=== PATIENT | male | born 1950 | race Caucasian/White ===

== ENCOUNTER 2025-07-10 09:13 | Inpatient (IN) | payer MEDICARE, OTHER ==
[2025-07-10] VITALS (12 sets, daily range): BP systolic 89–128; BP diastolic 57–82; PULSE 78–108; RESP 14–26; TEMP 99.1; O2SAT 89–100
[~2025-07-10] VITALS: Ht 180.3 cm; Wt 70.9 kg
[2025-07-10] MEDS: methylPREDNISolone SOD SUCC 125 MG/2 ML VL IV ONE (09:20)
[2025-07-10] MEDS: MAGNESIUM SULFATE 1GM/100ML 100 ML IV SCH (09:20)
[2025-07-10] MEDS: ALBUTEROL SULF 2.5 MG/0.5ML(0.5%) NEB SOLN NEB ONE (09:25)
[2025-07-10] MEDS: MAGNESIUM SULFATE 1GM/100ML 200 ML IV ONE (09:26)
[2025-07-10] MEDS: methylPREDNISolone SOD SUCC 125 MG/2 ML VL ONE (09:26)
[2025-07-10] MEDS: FUROSEMIDE 20 MG/2 ML VIAL IV ONE (09:36)
[2025-07-10] MEDS: ALBUTEROL SULF 2.5 MG/0.5ML(0.5%) NEB SOLN ONE (09:41)
--- NOTE | 2025-07-10 09:42 | ED.PDOC ---
SOB-HPI HPI Comments 75 y/o M, BIBA, with PMHx of dementia, Parkinson's, and COPD presents to the ED for CC of shortness of breath. EMS reports, patient is coming from home where he c/o shortness of breath x1day. EMS relays, upon arrival to scene patient was found to be hypoxic stating at 80% on 2-3L, with associated labored breathing and use of accessory muscles. In route to the ED, patient was given 7.5mg of Albuterol and 0.5 mg of Atrovent; patient endorses relief however, he experienced no change in saturation. Patient was transferred to ER bed 07, care ongoing at this time. Chief Complaint: Shortness of Breath Time Seen by MD: 09:15 Reviewed notes: Nurses Notes, Pharmacy Helper Notes, Medications, Allergies Information Source: Emergency Med Personnel Mode of Arrival: EMS Severity: Moderate Timing: Days Duration: Since onset Context: At Rest PE Risk Factors: None History of: COPD Modifying Factors: Nothing Associated Signs and Symptoms: None Past Medical History PAST MEDICAL HISTORY: COPD, Dementia Surgical History: Denies all surgeries Family History Family History: Unknown Social History Smoker: Non-Smoker Alcohol: Denies ETOH Use Drugs: Denies Drug Use Lives In: Home Constitutional: denies: chills, diaphoresis, fatigue, fever, malaise, sweats, weakness, others EENTM: denies: blurred vision, double vision, ear bleeding, ear discharge, ear drainage, ear pain, ear ringing, eye pain, eye redness, hearing loss, mouth pain, mouth swelling, nasal discharge, nose bleeding, nose congestion, nose pain, photophobia, tearing, throat pain, throat swelling, voice changes, others Respiratory: reports: shortness of breath; denies: cough, hemoptysis, orthopnea, SOB at rest, SOB with excertion, stridor, wheezing, others Cardiovascular: denies: chest pain, dizzy spells, diaphoresis, Dyspnea on exertion, edema, irregular heart beat, left arm pain, lightheadedness, palpitations, PND, syncope, others Gastrointestinal: denies: abdomen distended, abdominal pain, blood streaked bowels, constipated, diarrhea, dysphagia, difficulty swallowing, hematemesis, melena, nausea, poor appetite, poor fluid intake, rectal bleeding, rectal pain, vomiting, others Genitourinary: denies: burning, dysuria, flank pain, frequency, hematuria, incontinence, penile discharge, penile sore, pain, testicle pain, testicle swelling, urgency, others Neurological: denies: dizziness, fainting, headache, left sided numbness, left sided weakness, numbness, paresthesia, pre-existing deficit, right sided numbness, right sided weakness, seizure, speech problems, tingling, tremors, weakness, others Musculoskeletal: denies: back pain, gout, joint pain, joint swelling, muscle pain, muscle stiffness, neck pain, others Integumetry: denies: bruises, change in color, change in hair/nails, dryness, laceration, lesions, lumps, rash, wounds, others Allergic/Immunocompromised: denies: Difficulty Healing, Frequent Infections, Hives, Itching, others Hematologic/Lymphatic: denies: anemia, blood clots, easy bleeding, easy bruising, swollen glands, others Endocrine: denies: excessive hunger, excessive sweating, excessive thirst, excessive urination, flushing, intolerance to cold, intolerance to heat, unexpla ined weight gain, unexplained weight loss, others Psychiatric: denies: anxiety, bipolar disorder, depression, hopeless, panic disorder, schizophrenia, sleepless, suicidal, others All Other Systems: Reviewed and Negative Physical Exam General Appearance: Severe Distress HEENT: Normal ENT Inspection Neck: Normal Inspection Respiratory: Accessory Muscle Use, Respiratory Distress Cardiovascular: Tachycardia Breast Exam: Deferred Gastrointestinal: Soft Genitalia: Deferred Pelvic: Deferred Rectal: Deferred Extremities: No calf tenderness, Normal capillary refill, Normal inspection, Normal range of motion, Non-tender, No pedal edema Musculoskeletal : Apperance: Normal Neurologic: Alert, No Motor Deficits, No Sensory Deficits Cerebellar Function: NOT DONE Reflexes: NOT DONE Skin: Pallor Peripheral Pulses: 3+ Radial (R), 3+ Radial (L) Lymphatic: No Adenopathy EKG EKG : Cardiac Rhythm: ST Was a procedure done? Was a procedure done?: Yes Sedation Sedation?: No Intubation Indication: Respiratory Insufficiency Prep: Preoxygenation Pretreated with: Analgesia Medicated with: Vecuronium Intubation Approach: Orotracheal Intubation size: cm (8) Differential Dx Differential Diagnosis: Anxiety, Asthma, Bronchitis, CHF, COPD, Pneumonia, Respiratory Distress, URI X-Ray, Labs, Meds, VS Vital Signs Date Time Temp Pulse Resp B/P (MAP) Pulse Ox O2 Delivery O2 Flow Rate FiO2 07/10/25 12:18 108 18 92/57 89 50 07/10/25 12:00 92/57 07/10/25 12:00 102 18 92/57 (69) 90 07/10/25 11:45 107 18 108/62 (77) 89 07/10/25 11:30 110 18 119/64 (82) 99 07/10/25 11:15 111 18 119/67 (84) 99 07/10/25 11:07 117 18 129/75 (93) 99 50 07/10/25 11:00 137 14 102/66 (78) 99 07/10/25 10:57 113/72 07/10/25 10:56 113/72 07/10/25 10:53 113/72 07/10/25 10:45 123 28 113/72 (86) 99 07/10/25 09:45 98.6 93 27 160/95 (116) 99 98.6 07/10/25 09:45 Bi-Pap+ 100 100 07/10/25 09:36 160/95 07/10/25 09:27 110 07/10/25 09:20 120 160/95 Facial BiPAP Mask 100 07/10/25 09:13 98.6 86 30 160/95 99 98.6 Lab Test 07/10/25 12:07 07/10/25 10:39 07/10/25 10:04 07/10/25 10:00 Range/Units Blood Gas Specimen Type Arterial Arterial Blood Gas Sample Site Right radial Right brachial Blood Gas Patient Temperature 37.0 37.0 Arterial Blood Date Drawn [id number] Arterial Blood pH 7.242 *L 7.229 *L 7.350-7.450 Arterial Blood Partial Pressure CO2 61.6 *H 62.8 *H 35.0-48.0 mmHg Arterial Blood Partial Pressure O2 68.1 L 264.5 H 83.0-108.0 mmHg Arterial Blood HCO3 25.9 25.7 21.0-28.0 mmol/L Arterial Blood Oxygen Saturation 89.7 L 99.6 H 94.0-98.0 % Arterial Blood Base Excess -2.8 L -3.4 L -2.0-3.0 mmol/L Arterial Blood Oxyhemoglobin 88.1 L 98.0 94.0-98.0 % Arterial Blood Carboxyhemoglobin 0.9 0.7 0.5-1.5 % Arterial Blood Methemoglobin 0.9 0.9 0.0-1.5 % Kurt Test Modified Yes Blood Gas Total Hemoglobin 15.20 15.80 13.5-17.5 g/dL Blood Gas Set Respiration Rate 18.0 12.0 Blood Gas Modality Vent - ac Mask - bipap FiO2 % 50.0 100.0 Blood Gas Tidal Volume 500.0 Blood Gas PEEP or CPAP 5.0 Blood Gas Critical Value Read Back Yes Yes Blood Gas Notified Whom Md. aurelia moses Blood Gas Notified Time [id number] Blood Gas Notified By Intelligence Director artur hartmann Intelligence Director artur hartmann Blood Gas EPAP 5 Blood Gas IPAP 12 Urine Color Light-yellow Yellow Urine Clarity Clear Clear Urine pH 5.0 5.0-9.0 Urine Specific [place] 1.011 1.001-1.035 Urine Protein Negative Negative Urine Ketones Negative Negative Urine Blood Negative Negative /uL Urine Nitrite Negative Negative Urine Bilirubin Negative Negative Urine Urobilinogen Normal Negative mg/dL Urine Leukocyte Esterase Negative Negative /uL Urine RBC 1 0 - 3 /hpf Urine Microscopic WBC 2 0-3 /HPF Urine Squamous Epithelial Cells Few <5 /hpf Urine Bacteria None seen None Seen /hpf Urine Mucus Few None Seen Urine Glucose Normal Normal mg/dL White Blood Count 20.8 H 4.4-10.8 10^3/uL Red Blood Count 5.83 4.5-5.90 10^6/uL Hemoglobin 16.1 13.5-17.5 g/dL Hematocrit 50.2 41.0-53.0 % Mean Corpuscular Volume 86.1 80.0-100.0 fL Mean Corpuscular Hemoglobin 27.7 L 28.0-32.0 pg Mean Corpuscular Hemoglobin Concent 32.1 32.0-36.0 g/dL Red Cell Distribution Width 14.9 H 11.8-14.3 % Platelet Count 284 140-450 10^3/uL Mean Platelet Volume 8.7 6.9-10.8 fL Neutrophils (%) (Auto) 81.7 H 37.0-80.0 % Lymphocytes (%) (Auto) 12.3 10.0-50.0 % Monocytes (%) (Auto) 5.1 0.0-12.0 % Eosinophils (%) (Auto) 0.4 0.0-7.0 % Basophils (%) (Auto) 0.5 0.0-2.0 % Neutrophils # (Auto) 17.0 H 1.6-8.6 10 ^3/uL Lymphocytes # (Auto) 2.6 0.4-5.4 10 ^3/uL Monocytes # (Auto) 1.1 0-1.3 10 ^3/uL Eosinophils # (Auto) 0.1 0-0.8 10 ^3/uL Basophils # (Auto) 0.1 0-0.2 10 ^3/uL Nucleated Red Blood Cells 0.1 % Prothrombin Time 10.7 9.3-11.8 sec Prothrombin Time INR 1.01 0.9-1.15 Activated Partial Thromboplast Time 21.7 L 24.5-34.5 SEC Sodium Level 146 H 136-145 mmol/L Potassium Level 3.9 3.5-5.1 mmol/L Chloride Level 105 98-107 mmol/L Carbon Dioxide Level 31 20-31 mmol/L Anion Gap 10 5-15 Blood Urea Nitrogen 16 9-23 mg/dL Creatinine 0.90 0.700-1.30 mg/dL Glomerular Filtration Rate Calc 89 >90 mL/min BUN/Creatinine Ratio 17.8 10.0-20.0 Serum Glucose 128 H 74-106 mg/dL Lactic Acid Level 1.9 0.4-2.0 mmol/L Calcium Level 9.5 8.7-10.4 mg/dL Total Bilirubin 0.9 0.2-1.0 mg/dL Aspartate Amino Transferase (AST) 22 13-40 U/L Alanine Aminotransferase (ALT) 23 7-40 U/L Alkaline Phosphatase 124 H 46-116 U/L Total Protein 7.0 5.7-8.2 g/dL Albumin 4.4 3.2-4.8 g/dL Current Medications Medications (Trade) Dose Ordered Sig/Cameron Route Start Time Stop Time Status Last Admin Magnesium Sulfate/ Dextrose 100 ml @ 100 mls/hr Q1H IV 07/10/25 09:15 07/10/25 11:14 DC 07/10/25 11:30 Methylprednisolone Sodium Succinate (Solu Medrol) 125 mg ONCE ONCE IV 07/10/25 09:15 07/10/25 09:20 DC 07/10/25 09:20 Furosemide (Lasix Injection) 20 mg ONCE ONCE IV 07/10/25 09:30 07/10/25 09:31 DC 07/10/25 09:36 Sodium Chloride 1,000 ml @ 1,000 mls/hr Q1H ONCE IV 07/10/25 09:45 07/10/25 10:44 DC 07/10/25 09:45 Sodium Chloride 1,000 ml @ 150 mls/hr Q6H40M ONCE IV 07/10/25 09:45 07/10/25 16:24 07/10/25 11:30 Cefepime HCl 50 ml @ 50 mls/hr ONCE ONCE IV 07/10/25 09:45 07/10/25 10:44 DC 07/10/25 10:17 Etomidate 20 mg ONCE ONCE IV 07/10/25 10:45 07/10/25 10:46 DC 07/10/25 10:52 Rocuronium [place] 100 mg ONCE ONCE IV 07/10/25 10:45 07/10/25 10:46 DC 07/10/25 10:53 Midazolam HCl 50 ml @ 1 mls/hr Q24H IV 07/10/25 10:45 07/10/25 10:56 Vancomycin HCl 250 ml @ 250 mls/hr ONCE ONCE IV 07/10/25 11:30 07/10/25 12:29 DC 07/10/25 11:44 [place] [address] Ph: [phone] DIAGNOSTIC IMAGING Diagnostic Imaging Report : [id number] Signed PATIENT: AMADOU CADET ACCT: [id number] UNIT: [id number] : 1950 LOC: ER ROOM / BED: / AGE / SEX: 75 / M ADM STATUS: REG ER SERVICE ORDERING PHYSICIAN: RIGOBERTO MOSES MD PROCEDURE(s): CXRP - CHEST PORTABLE REASON: sob ORDER NUMBER(s): [id number], ACCESSION NUMBER(s): [id number] CHEST RADIOGRAPH Indication: sob Technique: Single frontal view of the chest was obtained COMPARISON: None FINDINGS: Lines and Tubes: None Lungs: Moderate patchy right and minimal left basilar pulmonary infiltrate. The left costophrenic angle is excluded from the image. Pleura: No effusion. No pneumothorax. Cardiomediastinal contours: Unremarkable Bones: Unremarkable IMPRESSION: 1. Moderate patchy right and minimal left basilar pulmonary infiltrate. Left costophrenic angle excluded from the image. ATED BY: SHUBHAM CALDWELL MD DICTATED DATE/TIME: 07/10/25 1041 SIGNED BY: SHUBHAM CALDWELL MD SIGNED DATE/TIME: 07/10/25 1041 CC: [place] [address] Ph: [phone] DIAGNOSTIC IMAGING Diagnostic Imaging Report : [id number] Signed PATIENT: AMADOU CADET ACCT: [id number] UNIT: [id number] : 1950 LOC: ER ROOM / BED: / AGE / SEX: 75 / M ADM STATUS: REG ER SERVICE 1101 ORDERING PHYSICIAN: RIGOBERTO MOSES MD PROCEDURE(s): CXR1 - CHEST XRAY 1 VIEW REASON: placement ORDER NUMBER(s): [id number], ACCESSION NUMBER(s): [id number] CHEST RADIOGRAPH Indication: placement Technique: XY CHEST XRAY 1 VIEW Comparison: None FINDINGS: Endotracheal tube tip projects 4.8 cm above the pallavi. Nasogastric tube projects towards stomach. The cardiac silhouette is unremarkable. The lungs demonstrate right mid lung and bibasilar airspace. The pulmonary vasculature is prominent. There is no pleural effusion. There is no pneumothorax. Aortic atherosclerotic disease. Old right mid clavicular fracture deformity. IMPRESSION: As above. Follow-up to resolution. ATED BY: MARJ ALCANTARA MD DICTATED DATE/TIME: 07/10/25 1146 SIGNED BY: MARJ ALCANTARA MD SIGNED DATE/TIME: 07/10/25 1146 CC: Patient on CPAP. Accessory muscle use. Has tremors. Answering questions. Chest x-ray reviewed does not show any acute process. Possible early pneumonia. Possible pneumonitis. Sepsis protocol. Was given Lasix for possible CHF. Had to intubate the patient. Continue to monitor. Time of 1ST Reevaluation: 09:45 Reevaluation 1ST: Unchanged Patient Education/Counseling: Diagnosis, Treatment Family Education/Counseling: No Family Present SEPSIS Sepsis Screen Date sepsis recognized/suspect: Jul 10, 2025 Time Sepsis recognized/suspect: 910 Recent Procedure: No On Antibiotic Therapy: No Respiratory Rate >20: No Heart Rate >90: No Temp<36 C (96.8 F) or >38.3 C: No SBP <90 or MAP <65 mmHG: No New Acute Mental Status Change: No Is the patient on CPAP, BIPAP,: No Physician Orders Electrocardigram (07/10/25 09:33) Chest Portable (07/10/25 09:35) Accucheck (07/10/25 09:35) Blood Culture (07/10/25 09:35) Cefepime 1gm/ 50ml (Maxipime 1gm/50ml) (07/10/25 18:00) Notify Md If Map <65 Or Bp<90 (07/10/25 09:35) If Map<65 Start Vasopressor (07/10/25 09:35) Sepsis Reassesment After Fluid (07/10/25 10:35) Sodium Chloride 0.9% (07/10/25 09:45) Insert Ann Catheter QSHIFT (07/10/25 09:35) BIPAP (07/10/25 09:25) Abg W/ Co-Ox (07/10/25 10:11) Midazolam Drip 50 Mg/50ml (Versed Drip 5 (07/10/25 10:45) Rass Sedation Scale Q1HR (07/10/25 10:44) Communication Order (07/10/25 10:56) Chest Xray 1 View (07/10/25 11:01) Vent Ip Init (07/10/25 11:00) Respiratory Culture W/ Gs (07/10/25 11:00) Abg W/ Co-Ox (07/10/25 12:00) Respiratory Misc. Order (07/10/25 11:20) Ventilator Orders (07/10/25 12:25) Norepinephrine 8 Mg/250ml Kit (Levophed) (07/10/25 12:45) Vital Signs Date Time Temp Pulse Resp B/P (MAP) Pulse Ox O2 Delivery O2 Flow Rate FiO2 07/10/25 12:18 108 18 92/57 89 50 07/10/25 12:00 92/57 07/10/25 12:00 102 18 92/57 (69) 90 07/10/25 11:45 107 18 108/62 (77) 89 07/10/25 11:30 110 18 119/64 (82) 99 07/10/25 11:15 111 18 119/67 (84) 99 07/10/25 11:07 117 18 129/75 (93) 99 50 07/10/25 11:00 137 14 102/66 (78) 99 07/10/25 10:57 113/72 07/10/25 10:56 113/72 07/10/25 10:53 113/72 07/10/25 10:45 123 28 113/72 (86) 99 07/10/25 09:45 98.6 93 27 160/95 (116) 99 98.6 07/10/25 09:45 Bi-Pap+ 100 100 07/10/25 09:36 160/95 07/10/25 09:27 110 07/10/25 09:20 120 160/95 Facial BiPAP Mask 100 07/10/25 09:13 98.6 86 30 160/95 99 98.6 Laboratory Tests Test 07/10/25 10:00 Lactic Acid Level 1.9 mmol/L (0.4-2.0) White Blood Count 20.8 10^3/uL (4.4-10.8) H Medications Medications Dose Ordered Sig/Cameron Route Start Time Stop Time Status Last Admin Dose Admin Cefepime HCl 50 ml @ 50 mls/hr ONCE ONCE IV 07/10/25 09:45 07/10/25 10:44 DC 07/10/25 10:17 Etomidate 20 mg ONCE ONCE IV 07/10/25 10:45 07/10/25 10:46 DC 07/10/25 10:52 Furosemide 20 mg ONCE ONCE IV 07/10/25 09:30 07/10/25 09:31 DC 07/10/25 09:36 Magnesium Sulfate/ Dextrose 100 ml @ 100 mls/hr Q1H IV 07/10/25 09:15 07/10/25 11:14 DC 07/10/25 11:30 Methylprednisolone Sodium Succinate 125 mg ONCE ONCE IV 07/10/25 09:15 07/10/25 09:20 DC 07/10/25 09:20 Midazolam HCl 50 ml @ 1 mls/hr Q24H IV 07/10/25 10:45 07/10/25 10:56 Rocuronium [place] 100 mg ONCE ONCE IV 07/10/25 10:45 07/10/25 10:46 DC 07/10/25 10:53 Sodium Chloride 1,000 ml @ 150 mls/hr Q6H40M ONCE IV 07/10/25 09:45 07/10/25 16:24 07/10/25 11:30 Sodium Chloride 1,000 ml @ 1,000 mls/hr Q1H ONCE IV 07/10/25 09:45 07/10/25 10:44 DC 07/10/25 09:45 Vancomycin HCl 250 ml @ 250 mls/hr ONCE ONCE IV 07/10/25 11:30 07/10/25 12:29 DC 07/10/25 11:44 Departure 1 Departure Time of Disposition: 12:44 Impression: Primary Impression: Acute respiratory failure Qualified Codes: J96.01 - Acute respiratory failure with hypoxia Additional Impressions: Pneumonitis CHF (congestive heart failure) Qualified Codes: I50.43 - Acute on chronic combined systolic (congestive) and diastolic (congestive) heart failure Disposition: ADMITTED INPATIENT Admit to: ICU Condition: Guarded Critical Care Note Critical Care Time?: Yes (90 min-critical care time only) Stability Stability form required: No Heart Score Heart Score: Heart Score Response (Comments) Value History Slightly Suspicious 0 EKG Normal 0 Age >65 2 Risk Factors >3 or Hx ASHD 2 Troponin Normal limit 0 Total 4 I personally scribed for RIGOBERTO MOSES MD ([email or web address]) on 07/10/25 at 09:42. Electronically submitted by Chelle Thorpe [email or web address]). I personally scribed for RIGOBERTO MOSES MD ([email or web address]) on 07/10/25 at 09:44. Electronically submitted by Chelle Thorpe ([email or web address]). I personally scribed for RIGOBERTO MOSES MD ([email or web address]) on 07/10/25 at 12:27. Electronically submitted by Chelle Thorpe ([email or web address]). I personally scribed for RIGOBERTO MOSES MD ([email or web address]) on 07/10/25 at 12:28. Electronically submitted by Chelle Thorpe [email or web address]). RIGOBERTO MOSES MD Jul 10, 2025 09:42
[2025-07-10] MEDS: SODIUM CHLORIDE 0.9% 1,000 ML IV ONE ×2 (09:45→11:30)
[2025-07-10] MEDS: VANCOMYCIN 1GM/200ML PM 200 ML IV ONE (09:45)
[2025-07-10] MEDS: CEFEPIME 1GM/50ML 50 ML IV ONE (10:17)
[2025-07-10 10:28] LABS: Urine Protein, UAD Negative (Negative)
[2025-07-10 10:38] LABS: Hematocrit 50.2 % (41.0-53.0); Hemoglobin 16.1 g/dL (13.5-17.5); Mean Corpuscular Hemoglobin 27.7 pg (28.0-32.0); Mean Corpuscular Volume 86.1 fL (80.0-100.0); Nucleated Red Blood Cells % 0.1 %
--- NOTE | 2025-07-10 10:43 | DVH ---
CHEST RADIOGRAPH Indication: sob Technique: Single frontal view of the chest was obtained COMPARISON: None FINDINGS: Lines and Tubes: None Lungs: Moderate patchy right and minimal left basilar pulmonary infiltrate. The left costophrenic ang le is excluded from the image. Pleura: No effusion. No pneumothorax. Cardiomediastinal contours: Unremarkable Bones: Unremarkable IMPRESSION: 1. Moderate patchy right and minimal left basilar pulmonary infiltrate. Left costophrenic angle excl uded from the image.
[2025-07-10 10:51] LABS: INR 1.01 (0.9-1.15); Partial Thromboplastin Time 21.7 SEC (24.5-34.5); Prothrombin Time 10.7 sec (9.3-11.8)
[2025-07-10 10:52] LABS: Alanine Aminotransferase 23 U/L (7-40); Albumin 4.4 g/dL (3.2-4.8); Anion Gap 10 (5-15); BUN/Creatinine Ratio 17.8 (10.0-20.0); Bilirubin, Total 0.9 mg/dL (0.2-1.0); Blood Urea Nitrogen 16 mg/dL (9-23); Calcium 9.5 mg/dL (8.7-10.4); Chloride 105 mmol/L (98-107); Potassium 3.9 mmol/L (3.5-5.1); Total Protein 7.0 g/dL (5.7-8.2)
[2025-07-10] MEDS: MIDAZOLAM DRIP 50 mg/50mL 50 ML IV ONE (10:52)
[2025-07-10] MEDS: ETOMIDATE (2MG/ML) 20ML VIAL IV ONE (10:52)
[2025-07-10 10:53] LABS: Alkaline Phosphatase 124 U/L (46-116); Carbon Dioxide 31 mmol/L (20-31); Glucose 128 mg/dL (74-106); Sodium 146 mmol/L (136-145)
[2025-07-10] MEDS: ROCURONIUM 10MG/ML 10ML VIAL IV ONE (10:53)
[2025-07-10] MEDS: MIDAZOLAM DRIP 50 mg/50mL 50 ML IV SCH (10:56)
[2025-07-10] MEDS: VANCOMYCIN 1GM/250ML KIT 250 ML IV ONE ×2 (11:44→21:00)
--- NOTE | 2025-07-10 11:46 | DVH ---
CHEST RADIOGRAPH Indication: placement Technique: XY CHEST XRAY 1 VIEW Comparison: None FINDINGS: Endotracheal tube tip projects 4.8 cm above the pallavi. Nasogastric tube projects towards stomach. The cardiac silhouette is unremarkable. The lungs demonstrate right mid lung and bibasilar airspace. The pulmonary vasculature is prominent. There is no pleural effusion. There is no pneumothorax. Aort ic atherosclerotic disease. Old right mid clavicular fracture deformity. IMPRESSION: As above. Follow-up to resolution.
[2025-07-10 11:57] LABS: Base Excess -3.4 mmol/L (-2.0-3.0)
[2025-07-10 12:25] LABS: Base Excess -2.8 mmol/L (-2.0-3.0)
[2025-07-10] MEDS: NOREPINEPHRINE 8 MG/250ML KIT 250 ML IV SCH (13:00)
[2025-07-10] MEDS: fentaNYL Drip 2500mCg/250mlNS 250 ML IV SCH (13:41)
[2025-07-10 15:15] LABS: Base Excess -1.8 mmol/L (-2.0-3.0)
[2025-07-10] MEDS: CEFEPIME 1GM/50ML 50 ML IV SCH ×2 (17:45→23:54)
[2025-07-10] MEDS ORDERED: MORPHINE SULFATE INJ 2 MG/ml SYRG IV PRN (19:15)
[2025-07-10] MEDS ORDERED: ALBUTEROL SULF 2.5 MG/0.5ML(0.5%) NEB SOLN NEB PRN (19:15)
[2025-07-10] MEDS ORDERED: ACETAMINOPHEN 325 MG TAB PO PRN (19:15)
[2025-07-10] MEDS ORDERED: ONDANSETRON HCL 4 MG/2 ML VIAL IV PRN (19:15)
[2025-07-10] MEDS ORDERED: VANCOMYCIN PER PHARMACY 0 MG IV SCH (19:15)
[2025-07-10] MEDS ORDERED: NITROGLYCERIN 0.4 MG SL TAB SL PRN (19:15)
--- NOTE | 2025-07-10 21:48 | DVHHP2 ---
History of Present Illness Reason for Visit: Shortness for breath History of Present Illness 75-year-old male with a history of dementia presents for evaluation of shortness for breath. Patient is currently sedated and intubated. Patient presented with a two day history of worsening shortness for breath. He does have a history of COPD and is currently using 3 L of nasal cannula oxygen at home. On arrival patient was hypoxic saturating in the 80s with labored breathing and using accessory muscles. Patient was intubated for airway protection. Past Medical History Dementia, COPD, Parkinson's disease Past Surgical History Unknown Family History Unknown Review of Systems Review of Systems Unable to complete review of systems, patient is sedated and intubated. Allergies: Coded Allergies: NO KNOWN ALLERGIES (Unverified , 07/10/25) Medications Current Medications Medications Dose Ordered Sig/Cameron Route Start Time Stop Time Status Last Admin Dose Admin Cefepime HCl 50 ml @ 12.5 mls/hr Q8H IV 07/10/25 18:00 07/10/25 17:45 12.5 MLS/HR Midazolam HCl 50 ml @ 1 mls/hr Q24H IV 07/10/25 10:45 07/10/25 10:56 1 MLS/HR Norepinephrine Bitartrate 250 ml @ 3.75 mls/hr Q24H IV 07/10/25 12:45 07/10/25 13:00 3.75 MLS/HR Fentanyl Citrate 250 ml @ 2.5 mls/hr Q24H IV 07/10/25 13:30 07/10/25 13:41 2.5 MLS/HR Albuterol 2.5 mg Q6HPRN PRN NEB 07/10/25 19:15 Cefepime HCl 50 ml @ 12.5 mls/hr Q12HR IV 07/10/25 22:00 Vancomycin HCl 0 ml @ 0 mls/hr UD IV 07/10/25 19:15 UNV Ondansetron HCl 4 mg Q4HP PRN IV 07/10/25 19:15 Enoxaparin Sodium 40 mg DAILY SC 07/11/25 10:00 Acetaminophen 650 mg Q6HP PRN PO 07/10/25 19:15 Nitroglycerin 0.4 mg Q5MINP PRN SL 07/10/25 19:15 Morphine Sulfate 2 mg Q30M PRN IV 07/10/25 19:15 Exam Vital Signs Vital Signs Date Time Temp Pulse Resp B/P (MAP) Pulse Ox O2 Delivery O2 Flow Rate FiO2 07/10/25 20:02 104 20 90/60 (70) 93 75 07/10/25 19:15 Mechanical Ventilator+ 07/10/25 17:30 97.8 97.8 Exam Gen: 75-year-old male in moderate Skin: Warm, dry, normal color and texture, no rash. HEENT: Normocephalic atraumatic, mucous membranes moist and pink. Neck: Cervical and supraclavicular nodes normal without enlargement, trachea is midline, thyroid gland is normal without masses. Pulmonary: Diminished breath sounds bilaterally Cardiac: Regular rate and rhythm. No murmur Abdomen: Soft, nontender, nondistended, bowel sounds present all 4 quadrants, no guarding, no rigidity, no organomegaly. Extremities: No cyanosis, clubbing, no edema Neuro: Sedated Labs/Xrays ORDERING PHYSICIAN: RIGOBERTO MOSES MD PROCEDURE(s): CXR1 - CHEST XRAY 1 VIEW REASON: placement ORDER NUMBER(s): [id number], ACCESSION NUMBER(s): [id number] CHEST RADIOGRAPH Indication: placement Technique: XY CHEST XRAY 1 VIEW Comparison: None FINDINGS: Endotracheal tube tip projects 4.8 cm above the pallavi. Nasogastric tube projects towards stomach. The cardiac silhouette is unremarkable. The lungs demonstrate right mid lung and bibasilar airspace. The pulmonary vasculature is prominent. There is no pleural effusion. There is no pneumothorax. Aortic atherosclerotic disease. Old right mid clavicular fracture deformity. IMPRESSION: As above. Follow-up to resolution. Labs Test 07/10/25 19:57 07/10/25 14:43 07/10/25 12:07 07/10/25 10:39 Range/Units D-Dimer, Quantitative 6.47 H 0.0-0.49 mg/L FEU Blood Gas Specimen Type Arterial Blood Gas Sample Site Right radial Blood Gas Patient Temperature 37.0 Arterial Blood Date Drawn [id number] Arterial Blood pH 7.336 L 7.350-7.450 Arterial Blood Partial Pressure CO2 46.6 35.0-48.0 mmHg Arterial Blood Partial Pressure O2 66.3 L 83.0-108.0 mmHg Arterial Blood HCO3 24.4 21.0-28.0 mmol/L Arterial Blood Oxygen Saturation 91.5 L 94.0-98.0 % Arterial Blood Base Excess -1.8 -2.0-3.0 mmol/L Arterial Blood Oxyhemoglobin 89.9 L 94.0-98.0 % Arterial Blood Carboxyhemoglobin 0.9 0.5-1.5 % Arterial Blood Methemoglobin 0.8 0.0-1.5 % Kurt Test Modified Blood Gas Total Hemoglobin 15.10 13.5-17.5 g/dL Blood Gas Set Respiration Rate 20.0 Blood Gas Modality Vent - ac FiO2 % 75.0 Blood Gas Tidal Volume 550.0 Blood Gas PEEP or CPAP 7.0 Blood Gas Critical Value Read Back Yes Blood Gas Notified Whom Md. moses Blood Gas Notified Time [id number] Blood Gas Notified By Drycleaner artur hartmann Blood Gas EPAP 5 Blood Gas IPAP 12 Test 07/10/25 10:04 07/10/25 10:00 Range/Units Urine Color Light-yellow Yellow Urine Clarity Clear Clear Urine pH 5.0 5.0-9.0 Urine Specific [place] 1.011 1.001-1.035 Urine Protein Negative Negative Urine Ketones Negative Negative Urine Blood Negative Negative /uL Urine Nitrite Negative Negative Urine Bilirubin Negative Negative Urine Urobilinogen Normal Negative mg/dL Urine Leukocyte Esterase Negative Negative /uL Urine RBC 1 0 - 3 /hpf Urine Microscopic WBC 2 0-3 /HPF Urine Squamous Epithelial Cells Few <5 /hpf Urine Bacteria None seen None Seen /hpf Urine Mucus Few None Seen Urine Glucose Normal Normal mg/dL White Blood Count 20.8 H 4.4-10.8 10^3/uL Red Blood Count 5.83 4.5-5.90 10^6/uL Hemoglobin 16.1 13.5-17.5 g/dL Hematocrit 50.2 41.0-53.0 % Mean Corpuscular Volume 86.1 80.0-100.0 fL Mean Corpuscular Hemoglobin 27.7 L 28.0-32.0 pg Mean Corpuscular Hemoglobin Concent 32.1 32.0-36.0 g/dL Red Cell Distribution Width 14.9 H 11.8-14.3 % Platelet Count 284 140-450 10^3/uL Mean Platelet Volume 8.7 6.9-10.8 fL Neutrophils (%) (Auto) 81.7 H 37.0-80.0 % Lymphocytes (%) (Auto) 12.3 10.0-50.0 % Monocytes (%) (Auto) 5.1 0.0-12.0 % Eosinophils (%) (Auto) 0.4 0.0-7.0 % Basophils (%) (Auto) 0.5 0.0-2.0 % Neutrophils # (Auto) 17.0 H 1.6-8.6 10 ^3/uL Lymphocytes # (Auto) 2.6 0.4-5.4 10 ^3/uL Monocytes # (Auto) 1.1 0-1.3 10 ^3/uL Eosinophils # (Auto) 0.1 0-0.8 10 ^3/uL Basophils # (Auto) 0.1 0-0.2 10 ^3/uL Nucleated Red Blood Cells 0.1 % Prothrombin Time 10.7 9.3-11.8 sec Prothrombin Time INR 1.01 0.9-1.15 Activated Partial Thromboplast Time 21.7 L 24.5-34.5 SEC Sodium Level 146 H 136-145 mmol/L Potassium Level 3.9 3.5-5.1 mmol/L Chloride Level 105 98-107 mmol/L Carbon Dioxide Level 31 20-31 mmol/L Anion Gap 10 5-15 Blood Urea Nitrogen 16 9-23 mg/dL Creatinine 0.90 0.700-1.30 mg/dL Glomerular Filtration Rate Calc 89 >90 mL/min BUN/Creatinine Ratio 17.8 10.0-20.0 Serum Glucose 128 H 74-106 mg/dL Lactic Acid Level 1.9 0.4-2.0 mmol/L Calcium Level 9.5 8.7-10.4 mg/dL Total Bilirubin 0.9 0.2-1.0 mg/dL Aspartate Amino Transferase (AST) 22 13-40 U/L Alanine Aminotransferase (ALT) 23 7-40 U/L Alkaline Phosphatase 124 H 46-116 U/L Total Protein 7.0 5.7-8.2 g/dL Albumin 4.4 3.2-4.8 g/dL SEPSIS Sepsis Screen Date sepsis recognized/suspect: Jul 10, 2025 Time Sepsis recognized/suspect: 1914 Recent Procedure: No On Antibiotic Therapy: No Respiratory Rate >20: No Heart Rate >90: Yes Temp<36 C (96.8 F) or >38.3 C: No SBP <90 or MAP <65 mmHG: No New Acute Mental Status Change: No Is the patient on CPAP, BIPAP,: Yes Physician Orders Albuterol Medneb (Ventolin Medneb) (07/10/25 19:15) Cefepime 1gm/ 50ml (Maxipime 1gm/50ml) (07/10/25 22:00) Vancomycin Per Pharmacy (07/10/25 19:15) Basic Metabolic Panel (07/11/25 04:00) Admit (07/10/25 19:14) Ondansetron Hcl (Zofran) (07/10/25 19:15) Enoxaparin Sodium (Lovenox) (07/11/25 10:00) Complete Blood Count (07/11/25 04:00) Condition: Unstable (07/10/25 19:14) Acetaminophen Tablet (Tylenol Tablet) (07/10/25 19:15) Maintain Bed Rest (07/10/25 19:14) Sequential Compression Device (07/10/25 ) Nitroglycerin Sublingual (Ntrostat Subli (07/10/25 19:15) Morphine Sulfate Injection (07/10/25 19:15) Stat Ekg For Chest Pain (07/10/25 19:14) Notify Md Of Changes From Base (07/10/25 19:14) [employer] Agent For 24 Hours (07/10/25 19:14) Emergency Dysrhythmia Protocol (07/10/25 19:14) Rhythm Strips Once Every Shift (07/10/25 19:14) Oxygen By Nasal Cannula (07/10/25 19:14) Vancomycin 1gm/250ml Kit (07/10/25 21:00) Ct Angio Chest Contrast (07/10/25 21:44) Bilat Lower Dvt (07/10/25 21:44) Vital Signs Date Time Temp Pulse Resp B/P (MAP) Pulse Ox O2 Delivery O2 Flow Rate FiO2 07/10/25 20:02 104 20 90/60 (70) 93 75 07/10/25 19:15 98 20 96 Mechanical Ventilator+ 75 75 07/10/25 19:00 100/67 07/10/25 19:00 87 20 100/67 (78) 95 07/10/25 18:45 90 20 112/71 (85) 94 07/10/25 18:30 87 20 114/60 (78) 95 07/10/25 18:15 91 20 115/64 (81) 95 07/10/25 18:10 102/69 07/10/25 18:10 102/69 07/10/25 18:03 82 20 96/62 (73) 94 75 07/10/25 18:00 106/70 07/10/25 18:00 103 20 106/70 (82) 93 07/10/25 17:45 90 20 112/61 (78) 95 07/10/25 17:30 97.8 85 20 102/64 (77) 94 97.8 07/10/25 17:15 89 20 99/64 (76) 94 07/10/25 17:10 105/57 07/10/25 17:10 105/57 07/10/25 17:00 97/58 07/10/25 17:00 95 20 97/58 (71) 91 07/10/25 16:45 95 20 102/56 (71) 94 07/10/25 16:30 88 20 89/65 (73) 94 07/10/25 16:28 90 20 89/65 (73) 95 75 07/10/25 16:15 90 20 107/61 (76) 93 07/10/25 16:10 102/56 07/10/25 16:10 102/64 07/10/25 16:00 85 07/10/25 16:00 85 20 112/67 (82) 94 07/10/25 16:00 112/67 07/10/25 15:45 97 20 104/56 (72) 95 07/10/25 15:45 104/56 07/10/25 15:30 97 20 93/58 (70) 94 07/10/25 15:15 103 21 115/61 (79) 94 07/10/25 15:10 120/73 07/10/25 15:10 120/73 07/10/25 15:00 84/53 07/10/25 15:00 92 23 84/54 (64) 91 07/10/25 14:55 89/53 07/10/25 14:45 97/63 8/17/25 14:45 93 22 97/63 (74) 91 07/10/25 14:43 94 21 97/63 (74) 92 75 07/10/25 14:30 100/58 07/10/25 14:30 95/57 07/10/25 14:30 97 26 100/58 (72) 88 07/10/25 14:15 98 24 85/51 (62) 88 07/10/25 14:10 92/61 07/10/25 14:00 98 18 85/51 (62) 88 Laboratory Tests Test 07/10/25 10:00 Lactic Acid Level 1.9 mmol/L (0.4-2.0) White Blood Count 20.8 10^3/uL (4.4-10.8) H Medications Medications Dose Ordered Sig/Cameron Route Start Time Stop Time Status Last Admin Dose Admin Cefepime HCl 50 ml @ 12.5 mls/hr Q8H IV 07/10/25 18:00 07/10/25 17:45 12.5 MLS/HR Etomidate 20 mg ONCE ONCE IV 07/10/25 10:45 07/10/25 10:46 DC 07/10/25 10:52 20 MG Fentanyl Citrate 250 ml @ 2.5 mls/hr Q24H IV 07/10/25 13:30 07/10/25 13:41 2.5 MLS/HR Midazolam HCl 50 ml @ 1 mls/hr Q24H IV 07/10/25 10:45 07/10/25 10:56 1 MLS/HR Norepinephrine Bitartrate 250 ml @ 3.75 mls/hr Q24H IV 07/10/25 12:45 07/10/25 13:00 3.75 MLS/HR Rocuronium [place] 100 mg ONCE ONCE IV 07/10/25 10:45 07/10/25 10:46 DC 07/10/25 10:53 100 MG Vancomycin HCl 250 ml @ 250 mls/hr ONCE ONCE IV 07/10/25 11:30 07/10/25 12:29 DC 07/10/25 11:44 250 MLS/HR Vancomycin HCl 250 ml @ 250 mls/hr ONCE ONCE IV 07/10/25 21:00 07/10/25 21:59 07/10/25 21:00 250 MLS/HR Assessment/Plan Assessment/Plan Assessment Acute hypoxic respiratory failure Community-acquired pneumonia Metabolic encephalopathy Leukocytosis Dementia Plan Admit the patient to ICU to the hospitalist Cefepime/vancomycin CT angiogram pending Bilateral lower extremity study pending Continue treatment per orders Total critical care time excluding procedures performed this 55 minutes. Plan discussed with: Other My Orders Orders - MICHELE COBIAN Procedure Category Date Status Time Albuterol Medneb PHA 07/10/25 In Process (Ventolin Medneb) 19:15 Cefepime 1gm/ 50ml PHA 07/10/25 In Process (Maxipime 1gm/50ml) 22:00 Vancomycin Per PHA 07/10/25 Pending Pharmacy 19:15 Basic Metabolic Panel LAB 07/11/25 Verified 04:00 Admit ADMIT 07/10/25 Transmitted 19:14 Ondansetron Hcl PHA 07/10/25 In Process (Zofran) 19:15 Enoxaparin Sodium PHA 07/11/25 In Process (Lovenox) 10:00 Complete Blood Count LAB 07/11/25 Verified 04:00 Condition: Unstable JORGE 07/10/25 In Process 19:14 Acetaminophen Tablet PHA 07/10/25 In Process (Tylenol Tablet) 19:15 Maintain Bed Rest JORGE 07/10/25 In Process 19:14 Sequential JORGE 07/10/25 In Process Compression Device Nitroglycerin PHA 07/10/25 In Process Sublingual (Ntrostat 19:15 Morphine Sulfate PHA 07/10/25 In Process Injection 19:15 Stat Ekg For Chest JORGE 07/10/25 In Process Pain 19:14 Notify Md Of Changes JORGE 07/10/25 In Process From Base 19:14 [employer] Agent For JORGE 07/10/25 In Process 24 Hours 19:14 Emergency Dysrhythmia JORGE 07/10/25 In Process Protocol 19:14 Rhythm Strips Once JORGE 07/10/25 In Process Every Shift 19:14 Oxygen By Nasal RT 07/10/25 Transmitted Cannula 19:14 Vancomycin 1gm/250ml PHA 07/10/25 In Process Kit 21:[address] 07/10/25 Verified Contrast 21:44 Bilat Lower Dvt US 07/10/25 Verified 21:44 Date of Service: Jul 10, 2025 Billing Provider: MICHELE COBIAN Common Visit Codes: [id number] CARE 30-74 MIN MICHELE COBIAN AGACNP Jul 10, 2025 21:48
[2025-07-10] MEDS: IOHEXOL 350 MG/ML 100ML IJ ONE (22:23)
--- NOTE | 2025-07-10 23:01 | DVH ---
INDICATION: r/o pe TECHNIQUE: Multidetector CTA of the chest was performed of the chest with 100 cc of intravenous contr ast. PULMONARY ANGIOGRAPHY PROTOCOL was utilized using a bolus-tracking technique centered on the darren n pulmonary artery. Axial, coronal and sagittal multiplanar and MIP reformats were performed. Radiation Dose Information: CT Dose: CTDI volume is 26.64 mGy. Dose-length product is 688.81 mGy*cm Omnipaque 350: 100 cc The dose indicators for CT are the volume Computed Tomography (CT) Dose Index (CTDIvol) and the Dose Length Product (DLP), and are measured in units of mGy and mGy-cm, respectively. These indicators are not patient dose, but values generated from the CT scanner acquisition factors. The report includes radiation exposure data for exposures received during this examination. Findings: Pulmonary artery: Normal caliber of the pulmonary artery. No large central or large segmental pulmo nary embolism. Lower neck: Normal thyroid. Endotracheal tube and enteric tube are in place Lungs: Bibasilar areas of pulmonary consolidation atelectasis in the posterior costophrenic angles bi laterally Heart/Vascular Structures: Normal heart size. Normal caliber and enhancement of the aorta. Lymph Nodes: No adenopathy Pleura: No pleural effusion or significant pneumothorax. Musculoskeletal: No acute osseous abnormality. Orthopedic tacks over the right humeral head Upper abdomen: Limited portions of the upper abdomen are unremarkable. IMPRESSION: 1. No pulmonary embolism or findings of pulmonary artery hypertension. 2. No acute intrathoracic abnormality. 3. Mid right clavicle fracture not apparent on CT. HS:Y
--- NOTE | 2025-07-10 23:12 | ECG ---
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
[2025-07-10 23:45] LABS: Chloride 105 mmol/L (98-107); Potassium 4.6 mmol/L (3.5-5.1); Sodium 142 mmol/L (136-145)
[2025-07-10 23:46] LABS: Anion Gap 10 (5-15); Carbon Dioxide 27 mmol/L (20-31)
[2025-07-10 23:47] LABS: Calcium 8.8 mg/dL (8.7-10.4)
[2025-07-10 23:51] LABS: BUN/Creatinine Ratio 22.9 (10.0-20.0)
[2025-07-10 23:52] LABS: Magnesium 2.4 mg/dL (1.6-2.6)
[2025-07-10 23:55] LABS: Blood Urea Nitrogen 24 mg/dL (9-23); Glucose 204 mg/dL (74-106)
[2025-07-11] VITALS (107 sets, daily range): BP systolic 68–159; BP diastolic 37–89; PULSE 53–115; RESP 18–21; TEMP 98.5–99.9; O2SAT 91–100
--- NOTE | 2025-07-11 03:29 | DVH ---
Bilateral lower extremity venous duplex Clinical History: r/o dvt Comparison: None Technique: Duplex Doppler evaluation of the deep venous systems of both lower extremities from the common femora l veins to the popliteal veins including color Doppler and spectral/pulsed waveform analysis was perf ormed. Findings: RIGHT SIDE: The common femoral vein demonstrates appropriate compressibility and waveform variability. There is compressibility/patency of the great saphenous vein at the proximal thigh. The femoral vein demonstrates appropriate compressibility and waveform variability. The deep femoral vein demonstrates appropriate compressibility and waveform variability. The popliteal vein demonstrates appropriate compressibility and waveform variability. There is normal compressibility at the tibioperoneal trunk. LEFT SIDE: The common femoral vein demonstrates appropriate compressibility and waveform variability. There is compressibility/patency of the great saphenous vein at the proximal thigh. The femoral vein demonstrates appropriate compressibility and waveform variability. The deep femoral vein demonstrates appropriate compressibility and waveform variability. The popliteal vein demonstrates appropriate compressibility and waveform variability. There is normal compressibility at the tibioperoneal trunk. Impression: 1. No right or left femoropopliteal venous thrombosis.
[2025-07-11 04:06] LABS: Hematocrit 47.0 % (41.0-53.0); Hemoglobin 15.1 g/dL (13.5-17.5); Mean Corpuscular Hemoglobin 27.5 pg (28.0-32.0); Mean Corpuscular Volume 85.3 fL (80.0-100.0)
[2025-07-11 04:13] LABS: Chloride 107 mmol/L (98-107); Potassium 4.5 mmol/L (3.5-5.1); Sodium 141 mmol/L (136-145)
[2025-07-11 04:14] LABS: Anion Gap 8 (5-15); Carbon Dioxide 26 mmol/L (20-31)
[2025-07-11 04:19] LABS: BUN/Creatinine Ratio 23.7 (10.0-20.0); Blood Urea Nitrogen 22 mg/dL (9-23)
[2025-07-11 04:21] LABS: Calcium 8.7 mg/dL (8.7-10.4); Glucose 188 mg/dL (74-106)
[2025-07-11 04:48] LABS: Total Cells Counted 100.0 (100)
[2025-07-11 06:56] LABS: Base Excess -0.9 mmol/L (-2.0-3.0)
--- NOTE | 2025-07-11 07:48 | ECG ---
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
[2025-07-11] MEDS: VANCOMYCIN 1GM/250ML KIT 250 ML IV SCH (10:13)
[2025-07-11] MEDS: ENOXAPARIN SOD 40 MG/0.4 ML SYRINGE SC SCH (10:16)
[2025-07-11] MEDS: methylPREDNISolone SOD SUCC 40 MG/ML VL IV ONE (11:39)
[2025-07-11] MEDS: PANTOPRAZOLE 40 MG/10 ML VIAL INJ IV SCH (11:39)
[2025-07-11] MEDS: CEFEPIME 1GM/50ML 50 ML IV SCH (11:40)
[2025-07-11] MEDS: IPRATROPIUM BROM 0.5 MG/2.5ML INH SOL NEB SCH (11:50)
[2025-07-11 12:08] LABS: Amphetamine Screen, Urine Neg (NEGATIVE)
[2025-07-11 12:09] LABS: Barbiturate Scree,Urine Neg (NEGATIVE); Benzodiazephine Screen, Urine Neg (NEGATIVE); Cannabinoid Screen, Urine Neg (NEGATIVE); Cocaine Screen, Urine Neg (NEGATIVE); Opiate Scree,Urine Neg (NEGATIVE); Phencyclidine Screen, Urine Neg (NEGATIVE)
--- NOTE | 2025-07-11 12:38 | DVHSR ---
APPROVED REPORT EXAM: Two-dimensional and M-mode echocardiogram with Doppler and color Doppler. Blood Pressure: 107/72 mmHg INDICATION ? CHF RISK FACTORS Height: 70, Weight: 152 DIMENSIONS LVDd4.4 (3.8-5.7cm)LA (2D)3.8 (1.9-4.0cm)Aortic Root3.8 (2.0-3.7cm) LVDs3.0 (2.5-4.0cm)LA (MM) (1.9-4.0cm)Aortic Cusp Exc (1.5-2.0cm) EF (%) 60.0 (55-70%)Rt. Atrium4.5 (1.9-4.0cm)Asc. Aorta cm Mitral Valve MitralMitral Stenosis E wave0.55m/sMV Mean GR.mmHg A wave0.71m/sMV Peak GR.mmHg E/A ratio0.82D MVAcm2 DECEL [id number] 1/2 [place] Aortic Valve Aortic ValveAortic Stenosis V10.98m/Haider Mean GR.4mmHg V21.29m/[place]ider Peak GR.7mmHg LVOT Diameter2.0 (1.8-2.4cm)Doppler AVA2.39cm2 AI P 1/2 [id number] Pulmonic Valve V20.92m/s Tricuspid Valve TR Velocity2.95m/s [id number] Other Information Technically limited study due to patient on a vent. Conclusion lvef 55% arrhythmia noted during study, decreases overall sensitivity normal rv functin, mild RV enlarged left atrium enlarged no severe valve abnormalities noted small pericaridla effusion near RV, no HD compromise
--- NOTE | 2025-07-11 13:35 | DVHPNRES ---
Progress Note Date Seen: Jul 11, 2025 Resident Creating Document: MENDY FERGUSON RESIDENT Medical Necessity Reason Pt with a Central, PICC or Fol: Yes The following are medically ne: Ann Catheter Subjective Review of Systems Flash Tavares is a 75 years old male with a history of COPD, early-onset dementia, BPH and anxiety with the hand tremors presented to the ED due to worsening of shortness of breath and low oxygen saturation since 2 days prior to admission. Patient is currently sedated and intubated so history obtained from family, per family he is typically uses 3 L of oxygen at night for his COPD and on Friday patient's oxygen saturation dropped to 80% which is lower than his usual level up to 90% so they started using oxygen at daytime as well and went up to 4.5 L. on Friday evening patient was more fatigued than usual and went to bed early, sleeping throughout the day. By Friday his oxygen saturation fluctuating between 80-85% and the patient's mobility declined significantly as he is unable to walk to restroom which he usually dose and the shortness of breath has been worsening so family decided to call 911. Patient family reported last week all the family experienced flu-like illness but patient did not experience any fever, cold symptoms, cough, sputum production. Per family patient never been intubated. On arrival patient found to have fevers with a T- max 100, heart rate was around 120s, respiratory rate around 30s with the use of accessory muscles and saturation was being in 80s so patient was intubated. PMH: As above PSH: Hernia surgery Social history: Lives at home. Former smoker but denies alcohol and other drug abuse Family history: Lung cancer and heart disease in mother , bone cancer in brother Allergies: No known allergies Home medications: Met XL 25 mg, spironolactone 25 mg, amlodipine 2.5 mg, losartan 100 mg, Lipitor 20 mg, finasteride 5 mg, tamsulosin, aspirin, Ellipta, Spiriva, ProAir donepezil 10 mg Unable to obtain ROS due to patient's clinical status, currently on sedation and ventilated with RR 20, VT 500, FiO2 50%, peep 7. CT angio showed no acute B, right mid clavicle fracture. Chest x-ray showing basilar opacities. Started him on med-nebs, prednisolone 40 mg b.i.d., cefepime and vancomycin for now. Ordered pancultures. Objective vital signs Vital Sign Date Time Temp Pulse Resp B/P (MAP) Pulse Ox O2 Delivery O2 Flow Rate FiO2 07/11/25 11:51 69 20 82/43 (56) 95 50 07/11/25 08:00 Mechanical Ventilator+ 07/11/25 04:00 98.5 98.5 07/11/25 00:00 20 Total Intake and Output 07/10/25 07/10/25 07/11/25 15:00 23:00 07:00 Intake Total 1970 ml 1124.50 ml 296.75 ml Output Total 1600 ml Balance 1970 ml 1124.50 ml -1303.25 ml medications Current Medications Medications Dose Ordered Sig/Cameron Route Start Time Stop Time Status Last Admin Dose Admin Midazolam HCl 50 ml @ 1 mls/hr Q24H IV 07/10/25 10:45 07/11/25 08:03 10 MLS/HR Norepinephrine Bitartrate 250 ml @ 3.75 mls/hr Q24H IV 07/10/25 12:45 07/11/25 03:38 11.25 MLS/HR Fentanyl Citrate 250 ml @ 2.5 mls/hr Q24H IV 07/10/25 13:30 07/10/25 13:41 2.5 MLS/HR Albuterol 2.5 mg Q6HPRN PRN NEB 07/10/25 19:15 Vancomycin HCl 0 ml @ 0 mls/hr UD IV 07/10/25 19:15 Ondansetron HCl 4 mg Q4HP PRN IV 07/10/25 19:15 Enoxaparin Sodium 40 mg DAILY SC 07/11/25 10:00 07/11/25 10:16 40 MG Acetaminophen 650 mg Q6HP PRN PO 07/10/25 19:15 Nitroglycerin 0.4 mg Q5MINP PRN SL 07/10/25 19:15 Morphine Sulfate 2 mg Q30M PRN IV 07/10/25 19:15 Cefepime HCl 50 ml @ 12.5 mls/hr Q8H IV 07/11/25 12:00 07/11/25 11:40 12.5 MLS/HR Vancomycin HCl 250 ml @ 250 mls/hr Q12HR IV 07/11/25 10:00 07/11/25 10:13 250 MLS/HR Pantoprazole Sodium 40 mg DAILY IV 07/11/25 10:45 07/11/25 11:39 40 MG Enteral Nutritional Formula 1,000 ml 30ML/HR GT 07/11/25 10:45 Methylprednisolone Sodium Succinate 40 mg BID IV 07/11/25 22:00 Ipratropium Cubero 0.5 mg Q6HR NEB 07/11/25 12:00 07/11/25 11:50 0.5 MG Examination Pt is lying on bed General Appearance: Sedated, intubated on MV RR 20, VT 500, FiO2 50%, peep 7 HEENT: Atraumatic, Mucous membranes moist/pink Respiratory: Clear to auscultation, on mechanical ventilation decreased sounds in lower lobes Cardiovascular: Regular rate, Normal S1, Normal S2, No murmurs Abdominal: Active bowel sounds, Soft, no distention, no tenderness Extremities: No edema, Normal pulses, No tenderness/swelling Skin: No Significant rash, except past surgical scars Neuro: Deferred, pupillary reflexes are brisk Nurse was there as fish hatchery superintendent during examination laboratory and microbiology Laboratory Tests 07/11/25 03:06 Test 07/11/25 03:06 Range/Units Serum Glucose 188 H 74-106 mg/dL Microbiology Date/Time Source Procedure Growth Status 07/10/25 22:30 Nose MRSA Screen - Final Complete 07/10/25 10:10 Blood Blood Culture - Preliminary NO GROWTH AFTER 24 HOURS OF INCUBATION. 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 # Acute hypoxic/metabolic encephalopathy # HX of dementia -sedated and intubated, on fentanyl and Versed -supportive management -delirium precautions -vitamin B12 wnl -TSH is low, ordered T3-T4, pending CVS # septic shock likely from pneumonia # HTN -currently on Levophed, titrating down as tolerated -avoid antihypertensives -strict I&Os -continuously monitoring -antibiotics vanc and Levaquin RS # acute on chronic hypercapnic/hypoxic respiratory failure status post intubation # COPD exacerbation # emphysema # Acute g positive/negative bacterial PNA # sepsis with shock likely due to above # ruled out PE -ICU status -vent settings are 20, VTE 550, FiO2 50%, peep 7 -chest x-ray showed bilateral lower opacities with the emphysematous changes -CT angio showed no acute PE -ABG on admission showed respiratory acidosis -monitor daily with the ABGs and CXR -ordered respiratory cultures along with pancultures -continue vancomycin and Levaquin -added methylprednisolone 40 mg b.i.d. along with med-nebs GI/Analy # PUD PPX: Protonix 40 mg /Kidney/Metabolic # BPH-we will start tamsulosin finasteride once extubation, Ann is in -monitor electrolytes, replenish as needed -strict I&O was -avoid nephrotoxic agents Heme-Onc MSK/ Cut # Deconditioning -PT after extubation DVT PPX: Lovenox PUD PPX: Protonix Diet: Glucerna Drips: Fentanyl Versed Levophed Lines Intubation 07/10 Goals of care discussed with the patient's and son for more than 27 minutes: DNR DNI status Care plan updated to patient's and son bedside Patient have advanced directives with says DNR/DNI. So patient's family decided they are okay with what patient is currently on like intubation on 1 pressor but they do not want to go beyond that and if he coded again DNR/DNI. Case discussed with Dr. Savage and congregational care pastor time spent excluding procedures more than 113 minutes Plan discussed with: Spouse, Son My Orders My Orders Orders - MENDY FERGUSON RESIDENT Procedure Category Date Status Time Pantoprazole PHA 07/11/25 In Process (Protonix) 10:45 Nutritional PHA 07/11/25 In Process Supplements (Glucerna 10:45 Methylprednisolone PHA 07/11/25 In Process Sod Succ (Solu Medrol 22:00 Ipratropium Medneb PHA 07/11/25 In Process (Atrovent Medneb) 12:00 Covid19 Antigen [facility] 07/11/25 Logged 10:39 Rapid Influenza A&B LAB 07/11/25 Logged 10:39 Echo 2d Mode Cardiac US 07/11/25 Resulted DOP 10:51 Date of Service: Jul 11, 2025 Billing Provider: MICHELE SVAAGE MD Common Visit Codes: [id number] CARE 30-74 MIN, [id number] CARE-EACH +30MIN (x2) MENDY FERGUSON RESIDENT Jul 11, 2025 13:35 MICHELE SAVAGE MD Jul 12, 2025 12:26
[2025-07-11 15:32] LABS: COVID19 ANTIGEN SOFIA FIA NEGATIVE (NEGATIVE)
--- NOTE | 2025-07-11 18:37 | DVH ---
Technique: Real-time ultrasound imaging, with color Doppler and compression of the bilateral upper e xtremity veins. Indication: ARM SWELLING Comparison: US BILAT LOWER DVT on DOS: 07/11/25 Findings: No thrombus seen within the left internal jugular, subclavian, axillary, brachial veins. The left cep halic vein is noncompressible and contains occlusive thrombus. Left radial, ulnar veins demonstrate c olor flow. No thrombus within the right internal jugular, subclavian, axillary, brachial veins. Right basilic ve in demonstrates color flow. Right cephalic vein is thrombosed and contains occlusive thrombus. Right radial and ulnar veins demonstrate color flow. Impression: Superficial vein thrombus that is occlusive within the bilateral upper extremity cephalic veins
[2025-07-11] MEDS: ALBUTEROL SULF 2.5 MG/0.5ML(0.5%) NEB SOLN NEB SCH (18:44)
[2025-07-11] MEDS: methylPREDNISolone SOD SUCC 40 MG/ML VL IV SCH (22:14)
[2025-07-12] VITALS (108 sets, daily range): BP systolic 77–143; BP diastolic 48–90; PULSE 54–115; RESP 19–28; TEMP 98.2–99.1; O2SAT 92–100
[2025-07-12 03:41] LABS: Hematocrit 47.7 % (41.0-53.0); Hemoglobin 15.7 g/dL (13.5-17.5); Mean Corpuscular Hemoglobin 27.9 pg (28.0-32.0); Mean Corpuscular Volume 84.7 fL (80.0-100.0); Nucleated Red Blood Cells % 0.2 %
[2025-07-12 03:53] LABS: Alanine Aminotransferase 18 U/L (7-40); Alkaline Phosphatase 113 U/L (46-116); Anion Gap 8 (5-15); BUN/Creatinine Ratio 25.3 (10.0-20.0); Calcium 9.2 mg/dL (8.7-10.4); Carbon Dioxide 28 mmol/L (20-31); Chloride 105 mmol/L (98-107); Magnesium 2.5 mg/dL (1.6-2.6); Potassium 4.8 mmol/L (3.5-5.1); Sodium 141 mmol/L (136-145); Total Protein 6.6 g/dL (5.7-8.2)
[2025-07-12 03:54] LABS: Albumin 4.1 g/dL (3.2-4.8)
[2025-07-12 03:55] LABS: Bilirubin, Total 0.5 mg/dL (0.2-1.0)
[2025-07-12 03:57] LABS: Free T4 (Free Thyroxine) 1.16 ng/dL (0.89-1.76)
[2025-07-12 04:03] LABS: Blood Urea Nitrogen 24 mg/dL (9-23); Glucose 123 mg/dL (74-106)
--- NOTE | 2025-07-12 04:38 | DVH ---
CHEST RADIOGRAPH Indication: fu Technique: Single frontal view of the chest was obtained COMPARISON: CT CT ANGIO CHEST CONTRAST on DOS: 07/10/25, XY CHEST XRAY 1 VIEW on DOS: 07/10/25, XY CHES T PORTABLE on DOS: 07/10/25 FINDINGS: Lines and Tubes: Interval advancement of endotracheal tube such that the tip now projects approximate ly 2.1 cm above the pallavi. Enteric catheter unchanged. Lungs: Clear Pleura: No effusion. No pneumothorax. Cardiomediastinal contours: Unremarkable. Atherosclerotic vascular calcifications. Bones: Unremarkable. Surgical anchors overlie the humeral head. IMPRESSION: 1. No acute disease. 2. Interval advancement of endotracheal tube. Enteric catheter unchanged.
[2025-07-12 06:49] LABS: Base Excess -0.7 mmol/L (-2.0-3.0)
[2025-07-12] MEDS: VANCOMYCIN 1GM/250ML KIT 250 ML IV SCH (07:45)
--- NOTE | 2025-07-12 12:23 | MEDREC ---
[facility] Intervention Section I [facility] Intervention: Review courses of therapy (CONSIDER D/C VANCO MRSA NARES NEGATIVE. PT ALREADY ON A RESPIRATORY QUINOLONE (LEVOFLOXACIN) HELIO ORTIZ [facility] RESIDENT Jul 12, 2025 12:23
--- NOTE | 2025-07-12 13:19 | DVHPNRES ---
Progress Note Date Seen: Jul 12, 2025 Resident Creating Document: MENDY FERGUSON RESIDENT Medical Necessity Reason Pt with a Central, PICC or Fol: Yes The following are medically ne: Ann Catheter Subjective Review of Systems 07/11: CT angio showed no acute PE, but right mid clavicle fracture. Chest x- ray showing basilar opacities. Started him on med-nebs, prednisolone 40 mg b.i.d., cefepime and vancomycin for now. Ordered pancultures. Patient seen and examined at the bedside. Overnight events reviewed. Unable to obtain ROS due to patient's clinical status, currently on sedation and ventilated with RR 20, VT 500, FiO2 40%, peep 7. We will come down FiO2 to 30% as tolerated. CPAP trial tomorrow added 1 dose of 20 mg Lasix. Changes from previous H/P or p: No Changes Objective vital signs Vital Sign Date Time Temp Pulse Resp B/P (MAP) Pulse Ox O2 Delivery O2 Flow Rate FiO2 07/12/25 13:17 71 20 84/48 (60) 94 40 07/12/25 12:00 98.2 98.2 07/12/25 12:00 Mechanical Ventilator+ 07/11/25 00:00 20 Total Intake and Output 07/11/25 07/11/25 07/12/25 15:00 23:00 07:00 Intake Total 423.75 ml 133.50 ml 92.0 ml Output Total 250 ml 200 ml Balance 423.75 ml -116.50 ml -108.0 ml medications Current Medications Medications Dose Ordered Sig/Cameron Route Start Time Stop Time Status Last Admin Dose Admin Midazolam HCl 50 ml @ 1 mls/hr Q24H IV 07/10/25 10:45 07/12/25 12:21 5 MLS/HR Norepinephrine Bitartrate 250 ml @ 3.75 mls/hr Q24H IV 07/10/25 12:45 07/11/25 03:38 11.25 MLS/HR Fentanyl Citrate 250 ml @ 2.5 mls/hr Q24H IV 07/10/25 13:30 07/11/25 17:23 7.5 MLS/HR Vancomycin HCl 0 ml @ 0 mls/hr UD IV 07/10/25 19:15 Ondansetron HCl 4 mg Q4HP PRN IV 07/10/25 19:15 Enoxaparin Sodium 40 mg DAILY SC 07/11/25 10:00 07/12/25 10:26 40 MG Acetaminophen 650 mg Q6HP PRN PO 07/10/25 19:15 Nitroglycerin 0.4 mg Q5MINP PRN SL 07/10/25 19:15 Morphine Sulfate 2 mg Q30M PRN IV 07/10/25 19:15 Pantoprazole Sodium 40 mg DAILY IV 07/11/25 10:45 07/12/25 10:24 40 MG Enteral Nutritional Formula 1,000 ml 30ML/HR GT 07/11/25 10:45 Methylprednisolone Sodium Succinate 40 mg BID IV 07/11/25 22:00 07/12/25 10:25 40 MG Ipratropium Rifton 0.5 mg Q6HR NEB 07/11/25 12:00 07/12/25 11:09 0.5 MG Albuterol 2.5 mg Q6HR NEB 07/11/25 18:00 07/12/25 11:09 2.5 MG Levofloxacin/ Dextrose 100 ml @ 100 mls/hr DAILY@1200 IV 07/12/25 12:00 07/12/25 12:15 100 MLS/HR Vancomycin HCl 250 ml @ 200 mls/hr Q12H IV 07/12/25 20:00 Examination Pt is lying on bed General Appearance: Sedated, intubated on MV RR 20, VT 500, FiO2 40%, peep 7 HEENT: Atraumatic, Mucous membranes moist/pink Respiratory: Clear to auscultation, on mechanical ventilation decreased sounds in lower lobes Cardiovascular: Regular rate, Normal S1, Normal S2, No murmurs Abdominal: Active bowel sounds, Soft, no distention, no tenderness Extremities: No edema, Normal pulses, No tenderness/swelling Skin: No Significant rash, except past surgical scars Neuro: Deferred, pupillary reflexes are brisk Nurse was there as corporate travel agent during examination laboratory and microbiology Laboratory Tests 07/12/25 03:08 Test 07/12/25 03:08 Range/Units Serum Glucose 123 H 74-106 mg/dL Microbiology Date/Time Source Procedure Growth Status 07/10/25 22:30 Nose MRSA Screen - Final Complete 07/10/25 10:10 Blood Blood Culture - Preliminary NO GROWTH AFTER 48 HOURS OF INCUBATION. 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 # Acute hypoxic/metabolic encephalopathy # HX of dementia -sedated and intubated, on fentanyl and Versed -supportive management -delirium precautions -vitamin B12 wnl -TSH is low, ordered T3-T4, pending CVS # septic shock likely from pneumonia # HTN -currently on Levophed, titrating down as tolerated -avoid antihypertensives -strict I&Os -continuously monitoring -antibiotics vanc and Levaquin RS # acute on chronic hypercapnic/hypoxic respiratory failure status post intubation # COPD exacerbation # emphysema # Acute g positive/negative bacterial PNA # sepsis with shock likely due to above # ruled out PE -ICU status -vent settings are 20, VTE 550, FiO2 50%, peep 7 -chest x-ray showed bilateral lower opacities with the emphysematous changes -CT angio showed no acute PE -ABG on admission showed respiratory acidosis -monitor daily with the ABGs and CXR -ordered respiratory cultures along with pancultures -continue vancomycin and Levaquin -added methylprednisolone 40 mg b.i.d. along with med-nebs -CPAP tomorrow GI/Analy # PUD PPX: Protonix 40 mg /Kidney/Metabolic # BPH-we will start tamsulosin finasteride once extubation, Ann is in -monitor electrolytes, replenish as needed -strict I&O was -avoid nephrotoxic agents Heme-Onc MSK/ Cut # Deconditioning -PT after extubation DVT PPX: Lovenox PUD PPX: Protonix Diet: Glucerna Drips: Fentanyl Versed Levophed Lines Intubation 07/10 Goals of care discussed with the patient's and son for more than 27 minutes: DNR DNI status Care plan updated to patient's and son bedside Patient have advanced directives with says DNR/DNI. So patient's family decided they are okay with what patient is currently on like intubation on 1 pressor but they do not want to go beyond that and if he coded again DNR/DNI. Case discussed with Dr. Savage and intensive care nurse time spent excluding procedures more than 93 minutes Plan discussed with: Spouse, Son My Orders My Orders Orders - MENDY FERGUSON RESIDENT Procedure Category Date Status Time Levofloxacin 500mg PHA 07/12/25 In Process (Levaquin 500mg/ 100m 12:00 Abg W/ Co-Ox RT 8/19/25 Logged 04:00 Chest Portable XY 07/12/25 Resulted 04:00 Bi Lat Upper Dvt US 07/11/25 Resulted 16:49 Dietary Evaluation Review Comments: Nutrition Recommendation: 1) TF Jevity 1.2Cal @ 60ml/hr x 24hr (goal) along with Pro-stat 1 pk daily. Start @ 20ml/hr, increase 10ml/hr Q4H until goal is reached. TF @ goal volume along with Pro-Stat provide 1828 kcal (100% energy needs), 95 gm protein (100% protein needs), 1162 ml free water. 2) Water flush 120ml Q4H if allowed, adjust PRN 3) TPN if NPO >7 days 4) Monitor NPO status, lab values, wt trend, I/O Expected Outcomes/Goals: To meet >75% estimated needs Lab values to improve Fu 2-3 days Date of Service: Jul 12, 2025 Billing Provider: MICHELE SAVAGE MD Common Visit Codes: [id number] CARE 30-74 MIN, [id number] CARE-EACH +30MIN ANGELIKA FERGUSONTiburcioSEBASTIAN RESIDENT Jul 12, 2025 13:19 MICHELE SAVAGE MD Jul 13, 2025 11:24
[2025-07-12] MEDS: LIDOCAINE 1% (LOCAL ANESTH.) PF 5ml SDV ID ONE (14:23)
[2025-07-12] MEDS: FUROSEMIDE 20 MG/2 ML VIAL IV ONE (14:39)
[2025-07-12] MEDS: Glucerna 1.2 Cal 1Liter BOTTLE GT SCH (15:25)
[2025-07-12] MEDS: NOREPINEPHRINE 8 MG/250ML KIT 250 ML IV SCH (20:28)
[2025-07-12] MEDS: SODIUM CHLOR 0.9% PF (SALINE LOCK) 10ML VIAL/SYR IV SCH (20:31)
[2025-07-12] MEDS: VANCOMYCIN 1.25GM/250ML 250 ML IV SCH (20:31)
[2025-07-13] VITALS (110 sets, daily range): BP systolic 108–187; BP diastolic 53–107; PULSE 53–98; RESP 16–24; TEMP 98.2–100; O2SAT 91–100
[2025-07-13 03:47] LABS: Hematocrit 41.8 % (41.0-53.0); Hemoglobin 13.9 g/dL (13.5-17.5); Mean Corpuscular Hemoglobin 27.9 pg (28.0-32.0); Mean Corpuscular Volume 83.7 fL (80.0-100.0); Nucleated Red Blood Cells % 0.0 %
[2025-07-13 03:52] LABS: Alanine Aminotransferase 14 U/L (7-40); Albumin 3.5 g/dL (3.2-4.8); Alkaline Phosphatase 90 U/L (46-116); Anion Gap 8 (5-15); BUN/Creatinine Ratio 34.1 (10.0-20.0); Calcium 9.0 mg/dL (8.7-10.4); Carbon Dioxide 28 mmol/L (20-31); Chloride 105 mmol/L (98-107); Magnesium 2.6 mg/dL (1.6-2.6); Potassium 4.5 mmol/L (3.5-5.1); Sodium 141 mmol/L (136-145); Total Protein 5.8 g/dL (5.7-8.2)
[2025-07-13 03:53] LABS: Bilirubin, Total 0.3 mg/dL (0.2-1.0)
[2025-07-13 03:56] LABS: Blood Urea Nitrogen 28 mg/dL (9-23); Glucose 129 mg/dL (74-106)
--- NOTE | 2025-07-13 04:43 | DVH ---
CHEST RADIOGRAPH Indication: fu Technique: Single frontal view of the chest was obtained Comparison: XY CHEST PORTABLE on DOS: 07/12/25, CT CT ANGIO CHEST CONTRAST on DOS: 07/10/25, XY CHEST X RAY 1 VIEW on DOS: 07/10/25, XY CHEST PORTABLE on DOS: 07/10/25 FINDINGS: Lines and Tubes: Endotracheal tube tip 3.8 cm above the pallavi. Left-sided PICC line. Enteric tube no berna. Lungs: No focal consolidation. Mild pulmonary vascular congestion. Pleura: No effusion. No pneumothorax. Cardiomediastinal contours: Calcified aortic arch. Bones: No acute osseous abnormality. IMPRESSION: 1. Endotracheal tube tip 3.8 cm above the pallavi. Left-sided PICC line. Enteric tube noted. 2. No focal consolidation. Mild pulmonary vascular congestion.
--- NOTE | 2025-07-13 04:58 | DVH ---
Exam: Ultrasound Vascular Central Line Placement Clinical History: PICC LINE PLACEMENT Comparison: US BI LAT UPPER DVT on DOS: 07/11/25, US BILAT LOWER DVT on DOS: 07/11/25, CT CT ANGIO CHES T CONTRAST on DOS: 07/10/25 Findings: Targeted sonographic evaluation of the arm vein was obtained utilizing grayscale and color Doppler im aging. IMPRESSION: Sonographic assistance for peripherally inserted central line placement. Please refer to procedural r eport for detailed findings.
[2025-07-13 06:31] LABS: Base Excess 1.6 mmol/L (-2.0-3.0)
--- NOTE | 2025-07-13 08:04 | ECG ---
[facility] Test Date: 2025-07-12 Test Time: 16:52:23 Pat Name: AMADOU CADET Department: icu Room: [address] [place] [address] A Gender: M Channel Worker: amelia holland : 1950 Requested By: MENDY FERGUSON Order Number: [id number] Reading MD: Andrew Mendiola Measurements Intervals [place] Rate: 82 P: 0 WA: 0 QRS: 75 QRSD: 108 T: 265 QT: 424 QTc: 496 Interpretive Statements Atrial fibrillation Repol abnrm, severe global ischemia (LM/MVD) Electronically Signed On 07-13-2025 22:21:51 PDT by Andrew Mendiola Please click the below link to view image of tracing.
[2025-07-13] MEDS: FUROSEMIDE 20 MG/2 ML VIAL ONE (11:53)
[2025-07-13] MEDS: FUROSEMIDE 20 MG/2 ML VIAL IV ONE (11:53)
--- NOTE | 2025-07-13 13:13 | DVHPNRES ---
Progress Note Date Seen: Jul 13, 2025 Resident Creating Document: MENDY FERGUSON RESIDENT Medical Necessity Reason Pt with a Central, PICC or Fol: Yes The following are medically ne: Ann Catheter Subjective Review of Systems 07/11: CT angio showed no acute PE, but right mid clavicle fracture. Chest x- ray showing basilar opacities. Started him on med-nebs, prednisolone 40 mg b.i.d., cefepime and vancomycin for now. Ordered pancultures. 07/12: RR 20, VT 500, FiO2 40%, peep 7. We will come down FiO2 to 30% as tolerated. CPAP trial tomorrow added 1 dose of 20 mg Lasix Patient seen and examined at the bedside. Overnight events reviewed. Unable to obtain ROS due to patient's clinical status, currently on sedation and ventilated with RR 20, VT 500, FiO2 30%, peep 5. CPAP today, giving 1 more dose of 20 Lasix. Added cefepime to the current regimen. Order sputum cultures. Objective vital signs Vital Sign Date Time Temp Pulse Resp B/P (MAP) Pulse Ox O2 Delivery O2 Flow Rate FiO2 07/13/25 12:25 85 07/13/25 12:25 20 95 Mechanical Ventilator+ 30 30 07/13/25 12:15 159/77 (104) 07/13/25 12:00 100.0 100.0 Total Intake and Output 07/12/25 07/12/25 07/13/25 15:00 23:00 07:00 Intake Total 470 ml 424.501 ml 351.875 ml Output Total 725 ml 450 ml Balance 470 ml -300.499 ml -98.125 ml medications Current Medications Medications Dose Ordered Sig/Cameron Route Start Time Stop Time Status Last Admin Dose Admin Midazolam HCl 50 ml @ 1 mls/hr Q24H IV 07/10/25 10:45 07/12/25 20:30 5 MLS/HR Fentanyl Citrate 250 ml @ 2.5 mls/hr Q24H IV 07/10/25 13:30 07/12/25 20:31 10 MLS/HR Vancomycin HCl 0 ml @ 0 mls/hr UD IV 07/10/25 19:15 Ondansetron HCl 4 mg Q4HP PRN IV 07/10/25 19:15 Enoxaparin Sodium 40 mg DAILY SC 07/11/25 10:00 07/13/25 10:00 40 MG Acetaminophen 650 mg Q6HP PRN PO 07/10/25 19:15 Nitroglycerin 0.4 mg Q5MINP PRN SL 07/10/25 19:15 Morphine Sulfate 2 mg Q30M PRN IV 07/10/25 19:15 Pantoprazole Sodium 40 mg DAILY IV 07/11/25 10:45 07/13/25 09:59 40 MG Enteral Nutritional Formula 1,000 ml 30ML/HR GT 07/11/25 10:45 07/12/25 15:25 1,000 ML Methylprednisolone Sodium Succinate 40 mg BID IV 07/11/25 22:00 07/13/25 10:00 40 MG Ipratropium [place] 0.5 mg Q6HR NEB 07/11/25 12:00 07/13/25 11:27 0.5 MG Albuterol 2.5 mg Q6HR NEB 07/11/25 18:00 07/13/25 11:27 2.5 MG Levofloxacin/ Dextrose 100 ml @ 100 mls/hr DAILY@1200 IV 07/12/25 12:00 07/13/25 11:52 100 MLS/HR Vancomycin HCl 250 ml @ 200 mls/hr Q12H IV 07/12/25 20:00 07/13/25 08:04 200 MLS/HR Sodium Chloride 10 ml QSHIFT@10,22 IV 07/12/25 22:00 07/13/25 09:59 10 ML Norepinephrine Bitartrate 250 ml @ 0.938 mls/ hr Q24H IV 07/12/25 19:15 07/12/25 20:28 1.875 MLS/HR Cefepime HCl 50 ml @ 12.5 mls/hr Q8HR IV 07/13/25 14:00 UNV Examination Pt is lying on bed General Appearance: Sedated, intubated on MV RR 20, VT 500, FiO2 30%, peep 5. HEENT: Atraumatic, Mucous membranes moist/pink Respiratory: Clear to auscultation, on mechanical ventilation decreased sounds in lower lobes Cardiovascular: Regular rate, Normal S1, Normal S2, No murmurs Abdominal: Active bowel sounds, Soft, no distention, no tenderness Extremities: No edema, Normal pulses, No tenderness/swelling Skin: No Significant rash, except past surgical scars Neuro: Deferred, pupillary reflexes are brisk Nurse was there as honing machine try out setter during examination laboratory and microbiology Laboratory Tests 07/13/25 02:28 Test 07/13/25 02:28 Range/Units Serum Glucose 129 H 74-106 mg/dL Microbiology Date/Time Source Procedure Growth Status 07/10/25 22:30 Nose MRSA Screen - Final Complete 07/10/25 10:10 Blood Blood Culture - Preliminary NO GROWTH AFTER 72 HOURS OF INCUBATION. 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 # Acute hypoxic/metabolic encephalopathy # HX of dementia -sedated and intubated, on fentanyl and Versed -supportive management -delirium precautions -vitamin B12 wnl -TSH is low, ordered T3-T4, pending CVS # septic shock likely from pneumonia # HTN -currently on Levophed, titrating down as tolerated -avoid antihypertensives -strict I&Os -continuously monitoring -antibiotics vanc and Levaquin RS # acute on chronic hypercapnic/hypoxic respiratory failure status post intubation # COPD exacerbation # emphysema # Acute g positive/negative bacterial PNA # sepsis with shock likely due to above # ruled out PE -ICU status -vent settings are MV RR 20, VT 500, FiO2 30%, peep 5. -chest x-ray showed bilateral lower opacities with the emphysematous changes -CT angio showed no acute PE -ABG on admission showed respiratory acidosis -monitor daily with the ABGs and CXR -ordered respiratory cultures along with pancultures -continue vancomycin and Levaquin -added methylprednisolone 40 mg b.i.d. along with med-nebs -CPAP trial today again tomorrow -given 1 dose of Lasix 20 mg GI/Analy # PUD PPX: Protonix 40 mg /Kidney/Metabolic # BPH-we will start tamsulosin finasteride once extubation, Ann is in -monitor electrolytes, replenish as needed -strict I&O was -avoid nephrotoxic agents Heme-Onc MSK/ Cut # Deconditioning -PT after extubation DVT PPX: Lovenox PUD PPX: Protonix Diet: Glucerna Drips: Fentanyl Versed Levophed Lines Intubation 07/10 Goals of care discussed with the patient's and son for more than 27 minutes: DNR DNI status Care plan updated to patient's and son bedside Patient have advanced directives with says DNR/DNI. So patient's family decided they are okay with what patient is currently on like intubation on 1 pressor but they do not want to go beyond that and if he coded again DNR/DNI. Case discussed with Dr. Savage and client care coordinator time spent excluding procedures and including CPAP trial for more than 83 minutes Plan discussed with: Spouse, Son My Orders My Orders Orders - MENDY FERGUSON Procedure Category Date Status Time Abg W/ Co-Ox RT 07/13/25 Logged 04:00 Chest Portable XY 07/13/25 Resulted 04:00 Norepinephrine 8 PHA 07/12/25 In Process Mg/250ml Kit 19:15 Ventilator Orders RT 07/13/25 Transmitted 09:57 Cefepime 1gm/ 50ml PHA 07/13/25 Logged (Maxipime 1gm/50ml) 14:00 Respiratory Culture DYLON 07/13/25 Uncollected W/ Gs 13:02 Dietary Evaluation Review Comments: Nutrition Recommendation: 1) TF Jevity 1.2Cal @ 60ml/hr x 24hr (goal) along with Pro-stat 1 pk daily. Start @ 20ml/hr, increase 10ml/hr Q4H until goal is reached. TF @ goal volume along with Pro-Stat provide 1828 kcal (100% energy needs), 95 gm protein (100% protein needs), 1162 ml free water. 2) Water flush 120ml Q4H if allowed, adjust PRN 3) TPN if NPO >7 days 4) Monitor NPO status, lab values, wt trend, I/O Expected Outcomes/Goals: To meet >75% estimated needs Lab values to improve Fu 2-3 days Date of Service: Jul 13, 2025 Billing Provider: MICHELE SAVAGE MD Common Visit Codes: 45810-VASXBKMG CARE 30-74 MIN, 20443-[id number] CARE-EACH +30MIN MENDY FERGUSON Jul 13, 2025 13:13 MICHELE SAVAGE MD Jul 14, 2025 10:53
[2025-07-13] MEDS: CEFEPIME 1GM/50ML 50 ML IV SCH (13:38)
[2025-07-13] MEDS: ACETAMINOPHEN 650 mg PER 20.3 mL UD GT PRN (13:39)
[2025-07-13] MEDS: ACETAMINOPHEN 650 mg PER 20.3 mL UD ONE (13:48)
[2025-07-14] VITALS (112 sets, daily range): BP systolic 75–202; BP diastolic 45–108; PULSE 53–125; RESP 14–30; TEMP 98.2–100.4; O2SAT 19–100
[2025-07-14 03:23] LABS: Hematocrit 44.0 % (41.0-53.0); Hemoglobin 14.3 g/dL (13.5-17.5); Mean Corpuscular Hemoglobin 27.1 pg (28.0-32.0); Mean Corpuscular Volume 83.1 fL (80.0-100.0); Nucleated Red Blood Cells % 0.0 %
[2025-07-14 03:46] LABS: Alanine Aminotransferase 14 U/L (7-40); Albumin 3.6 g/dL (3.2-4.8); Alkaline Phosphatase 90 U/L (46-116); Anion Gap 8 (5-15); BUN/Creatinine Ratio 38.8 (10.0-20.0); Bilirubin, Total 0.3 mg/dL (0.2-1.0); Calcium 9.3 mg/dL (8.7-10.4); Carbon Dioxide 28 mmol/L (20-31); Chloride 105 mmol/L (98-107); Potassium 4.4 mmol/L (3.5-5.1); Sodium 141 mmol/L (136-145); Total Protein 6.0 g/dL (5.7-8.2)
[2025-07-14 04:21] LABS: Blood Urea Nitrogen 38 mg/dL (9-23); Glucose 134 mg/dL (74-106); Magnesium 2.8 mg/dL (1.6-2.6)
--- NOTE | 2025-07-14 05:31 | DVH ---
CHEST RADIOGRAPH Indication: fu Technique: Single frontal view of the chest was obtained COMPARISON: XY CHEST PORTABLE on DOS: 07/13/25, XY CHEST PORTABLE on DOS: 07/12/25, CT CT ANGIO CHEST C ONTRAST on DOS: 07/10/25, XY CHEST XRAY 1 VIEW on DOS: 07/10/25, XY CHEST PORTABLE on DOS: 07/10/25 FINDINGS: Lines and Tubes: Endotracheal tube and enteric catheter in satisfactory position. Lungs: Multifocal airspace disease. Pleura: No effusion. No pneumothorax. Cardiomediastinal contours: Unremarkable Bones: Unremarkable IMPRESSION: Lines and tubes in satisfactory position. No significant interval change.
[2025-07-14 06:06] LABS: Base Excess 2.8 mmol/L (-2.0-3.0)
[2025-07-14] MEDS: hydrALAZINE HCL 20 MG/ML VL IV ONE (08:28)
[2025-07-14] MEDS: METOPROLOL SUCCINATE XL 50 MG TAB PO ONE (08:28)
[2025-07-14] MEDS: DEXMEDETOMIDINE HCL IN D5W 100 ML IV SCH (08:47)
[2025-07-14] MEDS: ACETYLCYSTEINE 20%(200MG/ML) SOL 4ML NEB SCH (11:03)
--- NOTE | 2025-07-14 11:15 | ECG ---
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
[2025-07-14] MEDS: ACETYLCYSTEINE 20%(200MG/ML) SOL 4ML ONE (12:35)
--- NOTE | 2025-07-14 12:50 | DVHPNRES ---
Progress Note Date Seen: Jul 14, 2025 Resident Creating Document: MENDY FERGUSON RESIDENT Medical Necessity Reason Pt with a Central, PICC or Fol: Yes The following are medically ne: Ann Catheter Subjective Review of Systems 07/11: CT angio showed no acute PE, but right mid clavicle fracture. Chest x- ray showing basilar opacities. Started him on med-nebs, prednisolone 40 mg b.i.d., cefepime and vancomycin for now. Ordered pancultures. 07/12: RR 20, VT 500, FiO2 40%, peep 7. We will come down FiO2 to 30% as tolerated. CPAP trial tomorrow added 1 dose of 20 mg Lasix 07/13: RR 20, VT 500, FiO2 30%, peep 5. CPAP today, giving 1 more dose of 20 Lasix. Added cefepime to the current regimen. Order sputum cultures. Patient seen and examined at the bedside. Overnight events reviewed. Unable to obtain ROS due to patient's clinical status, currently on sedation and ventilated with RR 20, VT 500, FiO2 35%, peep 5. failed CPAP, changed antibiotics to be meropenem and discontinued cefepime and Levaquin. Bronchoscopy done today and sent for cultures and Gram stain. Changes from previous H/P or p: No Changes Objective vital signs Vital Sign Date Time Temp Pulse Resp B/P (MAP) Pulse Ox O2 Delivery O2 Flow Rate FiO2 07/14/25 12:38 97 24 130/66 (87) 99 35 07/14/25 11:00 99.5 99.5 07/14/25 06:00 Mechanical Ventilator+ Total Intake and Output 07/13/25 07/13/25 07/14/25 15:00 23:00 07:00 Intake Total 475.0 ml 307.5 ml 487.0 ml Output Total 650 ml 400 ml Balance 475.0 ml -342.5 ml 87.0 ml medications Current Medications Medications Dose Ordered Sig/Cameron Route Start Time Stop Time Status Last Admin Dose Admin Midazolam HCl 50 ml @ 1 mls/hr Q24H IV 07/10/25 10:45 07/13/25 21:02 2 MLS/HR Fentanyl Citrate 250 ml @ 2.5 mls/hr Q24H IV 07/10/25 13:30 07/13/25 21:02 10 MLS/HR Vancomycin HCl 0 ml @ 0 mls/hr UD IV 07/10/25 19:15 Ondansetron HCl 4 mg Q4HP PRN IV 07/10/25 19:15 Enoxaparin Sodium 40 mg DAILY SC 07/11/25 10:00 07/14/25 09:27 40 MG Nitroglycerin 0.4 mg Q5MINP PRN SL 07/10/25 19:15 Morphine Sulfate 2 mg Q30M PRN IV 07/10/25 19:15 Pantoprazole Sodium 40 mg DAILY IV 07/11/25 10:45 07/14/25 09:26 40 MG Enteral Nutritional Formula 1,000 ml 30ML/HR GT 07/11/25 10:45 07/13/25 18:33 1,000 ML Methylprednisolone Sodium Succinate 40 mg BID IV 07/11/25 22:00 07/14/25 09:26 40 MG Ipratropium [place] 0.5 mg Q6HR NEB 07/11/25 12:00 07/14/25 12:35 0.5 MG Albuterol 2.5 mg Q6HR NEB 07/11/25 18:00 07/14/25 12:35 2.5 MG Sodium Chloride 10 ml QSHIFT@10,22 IV 07/12/25 22:00 07/14/25 09:28 10 ML Norepinephrine Bitartrate 250 ml @ 0.938 mls/ hr Q24H IV 07/12/25 19:15 07/12/25 20:28 1.875 MLS/HR Acetaminophen 650 mg Q6HP PRN GT 07/13/25 13:30 07/13/25 13:39 650 MG Vancomycin HCl 250 ml @ 250 mls/hr Q12H IV 07/14/25 10:00 Meropenem 50 ml @ 17 mls/hr Q8HR IV 07/14/25 14:00 UNV Acetylcysteine 200 mg Q6HR NEB 07/14/25 12:30 UNV Examination Pt is lying on bed General Appearance: Sedated, intubated on MV RR 20, VT 500, FiO2 35%, peep 5. HEENT: Atraumatic, Mucous membranes moist/pink Respiratory: Clear to auscultation, on mechanical ventilation decreased sounds in lower lobes Cardiovascular: Regular rate, Normal S1, Normal S2, No murmurs Abdominal: Active bowel sounds, Soft, no distention, no tenderness Extremities: No edema, Normal pulses, No tenderness/swelling Skin: No Significant rash, except past surgical scars Neuro: Deferred, pupillary reflexes are brisk Nurse was there as apn during examination laboratory and microbiology Laboratory Tests 07/14/25 02:46 Test 07/14/25 02:46 Range/Units Serum Glucose 134 H 74-106 mg/dL Microbiology Date/Time Source Procedure Growth Status 07/10/25 22:30 Nose MRSA Screen - Final Complete 07/10/25 10:10 Blood Blood Culture - Preliminary NO GROWTH AFTER 72 HOURS OF INCUBATION. 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 # HX of dementia -sedated and intubated, on fentanyl and Versed -supportive management -delirium precautions -vitamin B12 wnl -TSH is low, ordered T3-T4, pending CVS # septic shock likely from pneumonia # HTN -currently on Levophed, titrating down as tolerated -avoid antihypertensives -strict I&Os -continuously monitoring -antibiotics vanc and Levaquin RS # acute on chronic hypercapnic/hypoxic respiratory failure status post intubation # COPD exacerbation # emphysema # Acute g positive/negative bacterial PNA # sepsis with shock likely due to above # ruled out PE -ICU status -vent settings are MV RR 20, VT 500, FiO2 30%, peep 5. -chest x-ray showed bilateral lower opacities with the emphysematous changes -CT angio showed no acute PE -ABG on admission showed respiratory acidosis -monitor daily with the ABGs and CXR -ordered respiratory cultures along with pancultures -continue vancomycin -discontinued Levaquin and cefepime today(07/14) and added meropenem -added methylprednisolone 40 mg b.i.d. along with med-nebs -CPAP trial today again tomorrow -given 1 dose of Lasix 20 mg -BRONCHOSCOPY DONE, SENT FOR THE CULTURES GI/Analy # PUD PPX: Protonix 40 mg /Kidney/Metabolic # BPH-we will start tamsulosin finasteride once extubation, Marissa is in -monitor electrolytes, replenish as needed -strict I&O was -avoid nephrotoxic agents Heme-Onc MSK/ Cut # Deconditioning -PT after extubation DVT PPX: Lovenox PUD PPX: Protonix Diet: Glucerna Drips: Fentanyl Versed Levophed Lines Intubation 07/10 Bronchoscopy done today and changed antibiotic to meropenem Goals of care discussed with the patient's and son for more than 27 minutes: DNR DNI status Care plan updated to patient's and son bedside Patient have advanced directives with says DNR/DNI. So patient's family decided they are okay with what patient is currently on like intubation on 1 pressor but they do not want to go beyond that and if he coded again DNR/DNI. Case discussed with Dr. Savage and clinical care coordinator time spent excluding procedures and including CPAP trial and dw was more than 83 minutes Plan discussed with: Spouse My Orders My Orders Orders - MENDY FERGUSON RESIDENT Procedure Category Date Status Time Respiratory Culture DYLON 07/13/25 In Process W/ Gs 13:02 Abg W/ Co-Ox RT 07/14/25 Logged 04:00 Chest Portable XY 07/14/25 Resulted 04:00 Dexmedetomidine Hcl PHA 07/14/25 In Process In D5w (Precedex) 08:45 *Consult CONS 07/14/25 Transmitted / 12:09 Meropenem 1gm Ivpb PHA 07/14/25 Logged (Merrem 1gm/ Ns) 14:00 Acetylcysteine PHA 07/14/25 Logged Inhalation 20% 12:30 Respiratory Culture DYLON 07/14/25 Logged W/ Gs 12:22 Complete Blood Count LAB 07/15/25 Verified 04:00 Comprehensive LAB 07/15/25 Verified Metabolic Panel 04:00 Magnesium LAB 07/15/25 Verified 04:00 Abg W/ Co-Ox RT 07/15/25 Logged 04:00 Chest Portable XY 07/15/25 Logged 04:00 Respiratory Culture DYLON 07/14/25 Transmitted W/ Gs 12:47 Dietary Evaluation Review Comments: Nutrition Recommendation: 1) TF Jevity 1.2Cal @ 60ml/hr x 24hr (goal) along with Pro-stat 1 pk daily. Start @ 20ml/hr, increase 10ml/hr Q4H until goal is reached. TF @ goal volume along with Pro-Stat provide 1828 kcal (100% energy needs), 95 gm protein (100% protein needs), 1162 ml free water. 2) Water flush 120ml Q4H if allowed, adjust PRN 3) TPN if NPO >7 days 4) Monitor NPO status, lab values, wt trend, I/O Expected Outcomes/Goals: To meet >75% estimated needs Lab values to improve Fu 2-3 days Date of Service: Jul 14, 2025 Billing Provider: MICHELE SAVAGE MD Common Visit Codes: 33304-[id number] CARE 30-74 MIN, 40323-[id number] CARE-EACH +30MIN MENDY FERGUSON RESIDENT Jul 14, 2025 12:50 MICHELE SAVAGE MD Jul 16, 2025 11:48
[2025-07-14] MEDS: VANCOMYCIN 1GM/250ML KIT 250 ML IV SCH (14:34)
[2025-07-14] MEDS: MEROPENEM 1GM IVPB 50 ML IV SCH (15:43)
--- NOTE | 2025-07-14 15:53 | DVHNC2 ---
Procedure - Procedure- Bronchoscopy and bronchial washings Indication- Secretions Procedure in detail Consent was obtained and timeout performed per protocol. The patient was placed on 100% FiO2. Olympus bronchoscope was used and passed through the endotracheal tube, tracheobronchial tree was examined. There were copious, tenacious nonpurulent secretions in the airways bilaterally that were loosened up with approximately 50 cc of normal saline and thoroughly suctioned into a separate specimen container. There were no endobronchial lesions however, mucosa appeared inflamed and easily friable. After the procedure, the scope was removed. Patient tolerated the procedure well. SAMREEN AREVALO MD Jul 14, 2025 15:53
[2025-07-14] MEDS: PROPOFOL 100 ML IV SCH (17:24)
[2025-07-15] VITALS (109 sets, daily range): BP systolic 81–202; BP diastolic 39–107; PULSE 52–117; RESP 16–31; TEMP 98.6–100.2; O2SAT 91–100
[2025-07-15 03:53] LABS: Alanine Aminotransferase 21 U/L (7-40); Albumin 3.5 g/dL (3.2-4.8); Alkaline Phosphatase 86 U/L (46-116); Anion Gap 5 (5-15); BUN/Creatinine Ratio 37.8 (10.0-20.0); Blood Urea Nitrogen 34 mg/dL (9-23); Calcium 9.1 mg/dL (8.7-10.4); Carbon Dioxide 29 mmol/L (20-31); Chloride 106 mmol/L (98-107); Glucose 134 mg/dL (74-106); Magnesium 2.8 mg/dL (1.6-2.6); Potassium 4.8 mmol/L (3.5-5.1); Sodium 140 mmol/L (136-145); Total Protein 5.8 g/dL (5.7-8.2)
[2025-07-15 03:54] LABS: Bilirubin, Total 0.4 mg/dL (0.2-1.0)
--- NOTE | 2025-07-15 04:00 | DVH ---
INDICATION: fu TECHNIQUE: Single frontal view of the chest was obtained COMPARISON: XY CHEST PORTABLE on DOS: 07/14/25, XY CHEST PORTABLE on DOS: 07/13/25, XY CHEST PORTABLE o n DOS: 07/12/25, CT CT ANGIO CHEST CONTRAST on DOS: 07/10/25, XY CHEST XRAY 1 VIEW on DOS: 07/10/25, XY CHEST PORTABLE on DOS: 07/14/25 FINDINGS: Lines and Tubes: Endotracheal tube and enteric catheter in satisfactory position. Lungs: Multifocal airspace disease. Pleura: No effusion. No pneumothorax. Cardiomediastinal contours: Unremarkable Bones: Unremarkable IMPRESSION: Lines and tubes in satisfactory position. No significant interval change.
[2025-07-15 04:08] LABS: Hematocrit 43.7 % (41.0-53.0); Hemoglobin 14.2 g/dL (13.5-17.5); Mean Corpuscular Hemoglobin 27.4 pg (28.0-32.0); Mean Corpuscular Volume 84.5 fL (80.0-100.0)
[2025-07-15 04:48] LABS: Total Cells Counted 100.0 (100)
[2025-07-15 06:25] LABS: Base Excess 2.7 mmol/L (-2.0-3.0)
[2025-07-15] MEDS: AZITHROMYCIN 500MG/ 250ML 250 ML IV SCH (09:59)
--- NOTE | 2025-07-15 14:44 | DVHPNRES ---
Progress Note Date Seen: Jul 15, 2025 Resident Creating Document: MENDY FERGUSON RESIDENT Medical Necessity Reason Pt with a Central, PICC or Fol: Yes The following are medically ne: Ann Catheter Subjective Review of Systems 07/11: CT angio showed no acute PE, but right mid clavicle fracture. Chest x- ray showing basilar opacities. Started him on med-nebs, prednisolone 40 mg b.i.d., cefepime and vancomycin for now. Ordered pancultures. 07/12: RR 20, VT 500, FiO2 40%, peep 7. We will come down FiO2 to 30% as tolerated. CPAP trial tomorrow added 1 dose of 20 mg Lasix 07/13: RR 20, VT 500, FiO2 30%, peep 5. CPAP today, giving 1 more dose of 20 Lasix. Added cefepime to the current regimen. Order sputum cultures. 07/14: RR 20, VT 500, FiO2 35%, peep 5. failed CPAP, changed antibiotics to be meropenem and discontinued cefepime and Levaquin. Bronchoscopy done today and sent for cultures and Gram stain. Patient seen and examined at the bedside. Overnight events reviewed. Unable to obtain ROS due to patient's clinical status, currently on sedation and ventilated with RR 20, VT 500, FiO2 35%, peep 5. Patient is able to tolerate CPAP but still not fully awake so we will try CPAP tomorrow again and possible extubation tomorrow. Respiratory cultures showed yeast, added micafungin into current regimen of meropenem and vancomycin. Changes from previous H/P or p: No Changes Objective vital signs Vital Sign Date Time Temp Pulse Resp B/P (MAP) Pulse Ox O2 Delivery O2 Flow Rate FiO2 07/15/25 14:33 109/66 07/15/25 13:30 68 19 96 07/15/25 13:00 99.7 99.7 07/15/25 12:48 35 07/15/25 05:37 Mechanical Ventilator+ Total Intake and Output 07/14/25 07/14/25 07/15/25 15:00 23:00 07:00 Intake Total 263.936 ml 955.363 ml 348.576 ml Output Total 400 ml 425 ml Balance 263.936 ml 555.363 ml -76.424 ml medications Current Medications Medications Dose Ordered Sig/Cameron Route Start Time Stop Time Status Last Admin Dose Admin Midazolam HCl 50 ml @ 1 mls/hr Q24H IV 07/10/25 10:45 07/13/25 21:02 2 MLS/HR Fentanyl Citrate 250 ml @ 2.5 mls/hr Q24H IV 07/10/25 13:30 07/14/25 17:32 2.5 MLS/HR Vancomycin HCl 0 ml @ 0 mls/hr UD IV 07/10/25 19:15 Ondansetron HCl 4 mg Q4HP PRN IV 07/10/25 19:15 Enoxaparin Sodium 40 mg DAILY SC 07/11/25 10:00 07/15/25 10:00 40 MG Nitroglycerin 0.4 mg Q5MINP PRN SL 07/10/25 19:15 Morphine Sulfate 2 mg Q30M PRN IV 07/10/25 19:15 Pantoprazole Sodium 40 mg DAILY IV 07/11/25 10:45 07/15/25 09:59 40 MG Enteral Nutritional Formula 1,000 ml 30ML/HR GT 07/11/25 10:45 07/13/25 18:33 1,000 ML Methylprednisolone Sodium Succinate 40 mg BID IV 07/11/25 22:00 07/15/25 09:59 40 MG Ipratropium [place] 0.5 mg Q6HR NEB 07/11/25 12:00 07/15/25 12:48 0.5 MG Albuterol 2.5 mg Q6HR NEB 07/11/25 18:00 07/15/25 12:48 2.5 MG Sodium Chloride 10 ml QSHIFT@10,22 IV 07/12/25 22:00 07/15/25 09:59 10 ML Norepinephrine Bitartrate 250 ml @ 0.938 mls/ hr Q24H IV 07/12/25 19:15 07/15/25 01:30 0.938 MLS/HR Acetaminophen 650 mg Q6HP PRN GT 07/13/25 13:30 07/14/25 17:24 650 MG Vancomycin HCl 250 ml @ 250 mls/hr Q12H IV 07/14/25 10:00 07/15/25 09:59 250 MLS/HR Meropenem 50 ml @ 17 mls/hr Q8HR IV 07/14/25 14:00 07/15/25 14:32 17 MLS/HR Acetylcysteine 200 mg Q6HR NEB 07/14/25 12:30 07/15/25 12:48 200 MG Propofol 100 ml @ 2.223 mls/ hr Q24H IV 07/14/25 16:30 07/15/25 14:33 6.669 MLS/HR Azithromycin 250 ml @ 125 mls/hr DAILY IV 07/15/25 10:00 07/15/25 09:59 125 MLS/HR Examination Pt is lying on bed General Appearance: Sedated, intubated on MV RR 20, VT 500, FiO2 35%, peep 5. HEENT: Atraumatic, Mucous membranes moist/pink Respiratory: Clear to auscultation, on mechanical ventilation decreased sounds in lower lobes Cardiovascular: Regular rate, Normal S1, Normal S2, No murmurs Abdominal: Active bowel sounds, Soft, no distention, no tenderness Extremities: No edema, Normal pulses, No tenderness/swelling Skin: No Significant rash, except past surgical scars Neuro: Deferred, pupillary reflexes are brisk Nurse was there as manager mortgage during examination laboratory and microbiology Laboratory Tests 07/15/25 03:10 Test 07/15/25 03:10 Range/Units Serum Glucose 134 H 74-106 mg/dL Microbiology Date/Time Source Procedure Growth Status 07/13/25 22:05 Trachea Gram Stain - Final Resulted 07/13/25 22:05 Trachea Respiratory Culture - Preliminary Resulted 07/10/25 10:10 Blood Blood Culture - Final NO GROWTH AFTER 5 DAYS OF INCUBATION. 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 # Acute hypoxic/metabolic encephalopathy # HX of dementia -sedated and intubated, on fentanyl and Versed -supportive management -delirium precautions -vitamin B12 wnl -TSH is low, ordered T3-T4, pending CVS # septic shock likely from pneumonia # HTN -currently on Levophed, titrating down as tolerated -avoid antihypertensives -strict I&Os -continuously monitoring -antibiotics vanc and Levaquin RS # acute on chronic hypercapnic/hypoxic respiratory failure status post intubation # COPD exacerbation # emphysema # Acute g positive/negative bacterial PNA # sepsis with shock likely due to above # ruled out PE -ICU status -vent settings are MV RR 20, VT 500, FiO2 30%, peep 5. -chest x-ray showed bilateral lower opacities with the emphysematous changes -CT angio showed no acute PE -ABG on admission showed respiratory acidosis -monitor daily with the ABGs and CXR -ordered respiratory cultures along with pancultures -continue vancomycin -discontinued Levaquin and cefepime today(07/14) and added meropenem -added methylprednisolone 40 mg b.i.d. along with med-nebs -CPAP trial today again tomorrow -given 1 dose of Lasix 20 mg -BRONCHOSCOPY DONE, SENT FOR THE CULTURES -the cultures showing yeast, added micafungin to current regimen GI/Analy # PUD PPX: Protonix 40 mg /Kidney/Metabolic # BPH-we will start tamsulosin finasteride once extubation, Ann is in -monitor electrolytes, replenish as needed -strict I&O was -avoid nephrotoxic agents Heme-Onc MSK/ Cut # Deconditioning -PT after extubation DVT PPX: Lovenox PUD PPX: Protonix Diet: Glucerna Drips: Fentanyl Versed Levophed off since 07/13 Lines Intubation 07/10 Bronchoscopy done today and changed antibiotic to meropenem Goals of care discussed with the patient's and son for more than 27 minutes: DNR DNI status Care plan updated to patient's and son bedside Patient have advanced directives with says DNR/DNI. So patient's family decided they are okay with what patient is currently on like intubation on 1 pressor but they do not want to go beyond that and if he coded again DNR/DNI. Case discussed with Dr. Draper regarding CPAP trial and possible extubation. Critical care time spent excluding procedures and including CPAP trial for more than 83 minutes Plan discussed with: Spouse, Son, Other (rn) My Orders My Orders Orders - MENDY FERGUSON RESIDENT Procedure Category Date Status Time Cpap Trial For Am ORDERS 07/15/25 Transmitted 08:45 Micafungin Sodium PHA 07/15/25 Logged (Mycamine) 14:45 Micafungin Sodium PHA 07/16/25 Logged (Mycamine) 10:00 Cpap Trial For Am ORDERS 07/15/25 Transmitted 14:41 Complete Blood Count LAB 07/16/25 Verified 04:00 Comprehensive LAB 07/16/25 Verified Metabolic Panel 04:00 Magnesium LAB 07/16/25 Verified 04:00 Chest Portable XY 07/16/25 Logged 04:00 Abg W/ Co-Ox RT 07/16/25 Logged 04:00 Dietary Evaluation Review Comments: Nutrition Recommendation: 1) TF Jevity 1.2Cal @ 60ml/hr x 24hr (goal) along with Pro-stat 1 pk daily. Start @ 20ml/hr, increase 10ml/hr Q4H until goal is reached. TF @ goal volume along with Pro-Stat provide 1828 kcal (100% energy needs), 95 gm protein (100% protein needs), 1162 ml free water. 2) Water flush 120ml Q4H if allowed, adjust PRN 3) TPN if NPO >7 days 4) Monitor NPO status, lab values, wt trend, I/O Expected Outcomes/Goals: To meet >75% estimated needs Lab values to improve Fu 2-3 days MENDY FERGUSON RESIDENT Jul 15, 2025 14:44
--- NOTE | 2025-07-15 14:48 | DVHTSRES ---
Transfer Summary Transfer Summary Resident Creating Document: MENDY FERGUSON RESIDENT Date of Admission Jul 10, 2025 at 19:14 Date of Transfer: Jul 15, 2025 Transfer Diagnosis COPD exacerbation Brief Hx & Hospital Course: Flash Tavares is a 75-year-old male with a medical history of chronic obstructive pulmonary disease (COPD), early-onset dementia, benign prostatic hyperplasia (BPH), and anxiety with hand tremors. He presented to the emergency department with worsening shortness of breath and low oxygen saturation that began two days prior to admission. According to his family, he typically uses 3 L of oxygen at night for COPD, but his oxygen saturation dropped to 80% on Friday, prompting daytime oxygen use at 4.5 L. By Friday evening, he was more fatigued and slept throughout the day. On Friday, his oxygen levels fluctuated between 8085%, and his mobility declined significantly, leading to a 911 call. On arrival, he was febrile (T-max 100F), tachycardic (HR ~120s), tachypneic (RR ~30s), and hypoxic (O2 sat ~80s), necessitating intubation. Primary diagnosis # acute on chronic hypercapnic/hypoxic respiratory failure status post intubation # COPD exacerbation # emphysema # Acute g positive/negative bacterial PNA # sepsis with shock likely due to above CT angiogram on 07/11/2025 ruled out pulmonary embolism but revealed a right mid-clavicle fracture. Chest X-ray showed basilar opacities. He was started on nebulized medications, methylprednisolone 40 mg BID, cefepime, and vancomycin. Pancultures were ordered. On 07/12, ventilator settings were RR 20, VT 500, FiO2 40%, PEEP 7, with plans to reduce FiO2 to 30% as tolerated. A CPAP trial was scheduled, and he received one dose of Lasix 20 mg. On 07/13, FiO2 was reduced to 30%, and another dose of Lasix was given. Cefepime was added again, and sputum cultures were ordered. On 07/14, he failed CPAP trial, and antibiotics were changed to meropenem while cefepime and Levaquin were discontinued. Bronchoscopy was performed and samples sent for cultures and Gram stain. 07/15: Patient is able to tolerate CPAP but still not fully awake so we will try CPAP tomorrow again and possible extubation tomorrow. Respiratory cultures showed yeast, added micafungin into current regimen of meropenem and vancomycin. Neurologically, he has acute hypoxic/metabolic encephalopathy superimposed on dementia. He remains sedated and intubated, receiving fentanyl and Versed. Supportive management and delirium precautions are in place. Vitamin B12 is w ithin normal limits, and TSH is low with T3-T4 pending. Cardiovascularly, he is in septic shock likely secondary to pneumonia and has a history of hypertension. He is currently on Levophed, which is being titrated down. Antihypertensives are avoided, and strict I&Os are maintained. Respiratory-pringle, he has acute on chronic hypercapnic/hypoxic respiratory failure due to COPD exacerbation and emphysema. Imaging showed bilateral lower opacities and emphysematous changes. ABG revealed respiratory acidosis. He is monitored daily with ABGs and chest X-rays. Cultures were ordered, and he continues on vancomycin and meropenem and micafungin . Methylprednisolone and nebulized medications are ongoing. CPAP trials continue. Gastrointestinally, he is on PUD prophylaxis with pantoprazole 40 mg IV daily. Genitourinary-pringle, he has BPH and a Ann catheter in place. Tamsulosin and finasteride will be restarted post-extubation. Electrolytes are monitored and replenished as needed. Nephrotoxic agents are avoided. Musculoskeletally, he is deconditioned and will require physical therapy after extubation. Current medications include metoprolol XL 25 mg, spironolactone 25 mg, amlodipine 2.5 mg, losartan 100 mg, atorvastatin 20 mg, finasteride 5 mg, tamsulosin, aspirin, Ellipta, Spiriva, ProAir, donepezil 10 mg, vancomycin, meropenem, methylprednisolone 40 mg BID, and pantoprazole 40 mg IV daily. Plan and recomendations: CPAP trial tomorrow and possible extubation Physical therapy Follow up with the respiratory cultures and monitor labs Downgrade antibiotics if improvement is there Transfer to: MENDY Sosa RESIDENT Jul 15, 2025 14:48
[2025-07-15] MEDS: MICAFUNGIN SODIUM 100 MG in SODIUM CHL 0.9% 100 ML IV ONE (16:35)
[2025-07-16] VITALS (110 sets, daily range): BP systolic 89–198; BP diastolic 52–115; PULSE 50–115; RESP 10–34; TEMP 98.2–99.9; O2SAT 91–100
[2025-07-16 03:40] LABS: Hematocrit 42.3 % (41.0-53.0); Hemoglobin 13.7 g/dL (13.5-17.5); Mean Corpuscular Hemoglobin 27.1 pg (28.0-32.0); Mean Corpuscular Volume 83.7 fL (80.0-100.0); Nucleated Red Blood Cells % 0.0 %
[2025-07-16 03:54] LABS: Alanine Aminotransferase 38 U/L (7-40); Albumin 3.1 g/dL (3.2-4.8); Alkaline Phosphatase 80 U/L (46-116); Anion Gap 7 (5-15); BUN/Creatinine Ratio 30.3 (10.0-20.0); Blood Urea Nitrogen 23 mg/dL (9-23); Calcium 8.8 mg/dL (8.7-10.4); Carbon Dioxide 27 mmol/L (20-31); Chloride 107 mmol/L (98-107); Glucose 121 mg/dL (74-106); Magnesium 2.9 mg/dL (1.6-2.6); Potassium 4.9 mmol/L (3.5-5.1); Sodium 141 mmol/L (136-145); Total Protein 5.3 g/dL (5.7-8.2)
[2025-07-16 03:55] LABS: Bilirubin, Total 0.4 mg/dL (0.2-1.0)
--- NOTE | 2025-07-16 05:41 | DVH ---
CHEST RADIOGRAPH Indication: fu Technique: 1 view Comparison: XY CHEST PORTABLE on DOS: 07/15/25, XY CHEST PORTABLE on DOS: 07/14/25, XY CHEST PORTABLE o n DOS: 07/13/25, XY CHEST PORTABLE on DOS: 07/12/25, XY CHEST XRAY 1 VIEW on DOS: 07/10/25 FINDINGS: Lines and Tubes: Unchanged endotracheal tube, enteric tube, in the left upper extremity PICC. Lungs: Unchanged. Pleura: Unchanged. Cardiomediastinal contours: Unchanged. Other: Unchanged. IMPRESSION: 1. No significant change from the previous study. Mild scattered airspace disease in the left lung garcia ggesting atelectasis. Suspected trace left pleural effusion. Stable support devices.
[2025-07-16 07:10] LABS: Base Excess 3.8 mmol/L (-2.0-3.0)
[2025-07-16] MEDS: VANCOMYCIN 1GM/250ML KIT 250 ML IV SCH (09:06)
[2025-07-16] MEDS: MICAFUNGIN SODIUM 100 MG in SODIUM CHL 0.9% 100 ML IV SCH (09:06)
--- NOTE | 2025-07-16 15:09 | DVHPN2 ---
Subjective The patient seen and examined at bedside. No change overnight. Remained intubated. Reviewed: Care Plan, H&P, Labs, Medications, Previous Orders Changes from previous H/P or p: No Changes Objective Vitals Vital Signs Date Time Temp Pulse Resp B/P (MAP) Pulse Ox O2 Delivery O2 Flow Rate FiO2 07/16/25 13:12 50 22 116/69 (85) 99 35 07/16/25 12:00 Mechanical Ventilator+ 07/16/25 11:15 99.1 99.1 Intake/Output Intake and Output 07/16/25 07:00 Intake Total 1236.782 ml Output Total 1210 ml Balance 26.782 ml Intake Oral 60 ml IV Total 1176.782 ml Output Urine Total 1050 ml Gastric Drainage Total 160 ml General Appearance: Other (Intubated, on vent,) HEENT: Atraumatic Neck: Supple Lungs: Clear to auscultation, Normal air movement, Other (Ventilation support) Cardiovascular: Regular rate, Normal S1, Normal S2, No murmurs, Gallops Abdomen: Normal bowel sounds, Soft, No tenderness Neuro: Cranial nerves 3-12 NL Psych/Mental Status: Mental status NL Medications Current Medications Medications Dose Ordered Sig/Cameron Route Start Time Stop Time Status Last Admin Dose Admin Midazolam HCl 50 ml @ 1 mls/hr Q24H IV 07/10/25 10:45 07/13/25 21:02 2 MLS/HR Fentanyl Citrate 250 ml @ 2.5 mls/hr Q24H IV 07/10/25 13:30 07/15/25 18:31 17.5 MLS/HR Vancomycin HCl 0 ml @ 0 mls/hr UD IV 07/10/25 19:15 Ondansetron HCl 4 mg Q4HP PRN IV 07/10/25 19:15 Enoxaparin Sodium 40 mg DAILY SC 07/11/25 10:00 07/15/25 10:00 40 MG Nitroglycerin 0.4 mg Q5MINP PRN SL 07/10/25 19:15 Morphine Sulfate 2 mg Q30M PRN IV 07/10/25 19:15 Pantoprazole Sodium 40 mg DAILY IV 07/11/25 10:45 07/16/25 09:06 40 MG Enteral Nutritional Formula 1,000 ml 30ML/HR GT 07/11/25 10:45 07/13/25 18:33 1,000 ML Methylprednisolone Sodium Succinate 40 mg BID IV 07/11/25 22:00 07/16/25 09:06 40 MG Ipratropium [place] 0.5 mg Q6HR NEB 07/11/25 12:00 07/16/25 11:03 0.5 MG Albuterol 2.5 mg Q6HR NEB 07/11/25 18:00 07/16/25 11:03 2.5 MG Sodium Chloride 10 ml QSHIFT@ IV 07/12/25 22:00 07/16/25 09:06 10 ML Norepinephrine Bitartrate 250 ml @ 0.938 mls/ hr Q24H IV 07/12/25 19:15 07/15/25 01:30 0.938 MLS/HR Acetaminophen 650 mg Q6HP PRN GT 07/13/25 13:30 07/14/25 17:24 650 MG Meropenem 50 ml @ 17 mls/hr Q8HR IV 07/14/25 14:00 07/16/25 05:20 17 MLS/HR Acetylcysteine 200 mg Q6HR NEB 07/14/25 12:30 07/14/25 11:03 200 MG Propofol 100 ml @ 2.223 mls/ hr Q24H IV 07/14/25 16:30 07/16/25 10:44 11.115 MLS/HR Micafungin Sodium 100 mg/Sodium Chloride 100 ml @ 100 mls/hr DAILY@0900 IV 07/16/25 09:00 07/16/25 09:06 100 MLS/HR Vancomycin HCl 250 ml @ 250 mls/hr Q12HR@0600,1800 IV 07/16/25 06:00 07/16/25 09:06 250 MLS/HR Laboratory Results Laboratory Tests 07/16/25 03:21 Chemistry Test 07/16/25 03:21 Albumin 3.1 g/dL (3.2-4.8) L Calcium Level 8.8 mg/dL (8.7-10.4) Magnesium Level 2.9 mg/dL (1.6-2.6) H Total Protein 5.3 g/dL (5.7-8.2) L LFT Test 07/16/25 03:21 Alanine Aminotransferase (ALT) 38 U/L (7-40) Alkaline Phosphatase 80 U/L (46-116) Aspartate Amino Transferase (AST) 22 U/L (13-40) Total Bilirubin 0.4 mg/dL (0.2-1.0) Urinalysis Test 07/10/25 10:04 Urine Color Light-yellow (Yellow) Urine Clarity Clear (Clear) Urine pH 5.0 (5.0-9.0) Urine Specific [place] 1.011 (1.001-1.035) Urine Protein Negative (Negative) Urine Ketones Negative (Negative) Urine Blood Negative /uL (Negative) Urine Nitrite Negative (Negative) Urine Bilirubin Negative (Negative) Urine Urobilinogen Normal mg/dL (Negative) Urine Leukocyte Esterase Negative /uL (Negative) Urine RBC 1 /hpf (0 - 3) Urine Microscopic WBC 2 /HPF (0-3) Urine Squamous Epithelial Cells Few /hpf (<5) Urine Bacteria None seen /hpf (None Seen) Urine Mucus Few (None Seen) Urine Glucose Normal mg/dL (Normal) Blood Gas Results Test 07/16/25 07:03 Arterial Blood pH 7.397 (7.350-7.450) FiO2 % 35.0 Microbiology Microbiology Date/Time Source Procedure Growth Status 07/13/25 22:05 Trachea Gram Stain - Final Resulted 07/13/25 22:05 Trachea Respiratory Culture - Preliminary Resulted 07/10/25 10:10 Blood Blood Culture - Final NO GROWTH AFTER 5 DAYS OF INCUBATION. 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 # Acute hypoxic/metabolic encephalopathy # HX of dementia -sedated and intubated, on fentanyl and Versed -supportive management -delirium precautions -vitamin B12 wnl -TSH is low, ordered T3-T4, pending CVS # septic shock likely from pneumonia # HTN -currently on Levophed, titrating down as tolerated -avoid antihypertensives -strict I&Os -continuously monitoring -antibiotics vanc and Levaquin RS # acute on chronic hypercapnic/hypoxic respiratory failure status post intubation # COPD exacerbation # emphysema # Acute g positive/negative bacterial PNA # sepsis with shock likely due to above # ruled out PE -ICU status -vent settings are MV RR 20, VT 500, FiO2 30%, peep 5. -chest x-ray showed bilateral lower opacities with the emphysematous changes -CT angio showed no acute PE -ABG on admission showed respiratory acidosis -monitor daily with the ABGs and CXR -ordered respiratory cultures along with pancultures -continue vancomycin -discontinued Levaquin and cefepime today(07/14) and added meropenem -added methylprednisolone 40 mg b.i.d. along with med-nebs -CPAP trial today again tomorrow -given 1 dose of Lasix 20 mg -BRONCHOSCOPY DONE, SENT FOR THE CULTURES -the cultures showing yeast, added micafungin to current regimen GI/Analy # PUD PPX: Protonix 40 mg /Kidney/Metabolic # BPH-we will start tamsulosin finasteride once extubation, Ann is in -monitor electrolytes, replenish as needed -strict I&O was -avoid nephrotoxic agents Heme-Onc MSK/ Cut # Deconditioning -PT after extubation DVT PPX: Lovenox PUD PPX: Protonix Diet: Glucerna Drips: Fentanyl Versed Levophed off since 07/13 Lines Intubation 07/10 Bronchoscopy done today and changed antibiotic to meropenem Goals of care: Patient have advanced directives with says DNR/DNI. So patient's family decided they are okay with what patient is currently on like intubation on 1 pressor but they do not want to go beyond that and if he coded again DNR/DNI. The patient fell CPAP trial today. Continuing intubation. Discussed with RN. Critical care spent for this case is 38 minutes. Plan discussed with: Other (RN) Date of Service: Jul 16, 2025 Billing Provider: YG KELLER MD Common Visit Codes: 15200-[id number] CARE 30-74 MIN YG KELLER MD Jul 16, 2025 15:08
[2025-07-16] MEDS: VANCOMYCIN 750MG KIT 100 ML IV SCH (18:24)
--- NOTE | 2025-07-16 21:40 | DVH ---
CHEST RADIOGRAPH Indication: INTUBATION Technique: Single frontal view of the chest was obtained Comparison: XY CHEST PORTABLE on DOS: 07/16/25, XY CHEST PORTABLE on DOS: 07/15/25, XY CHEST PORTABLE o n DOS: 07/14/25 FINDINGS: Lines and Tubes: Endotracheal tube 6.7 cm above the pallavi. Central line in place left with the tip i n the superior vena cava above the right atrium. Enteric tube the diaphragm. Tip is out of field-of-v iew. Lungs: No focal consolidation. Pleura: No effusion. No pneumothorax. Cardiomediastinal contours: Unremarkable Bones: No acute osseous abnormality. IMPRESSION: 1. Endotracheal tube 6.7 cm above the pallavi 2. Central line in place in the left with the tip in the superior vena cava above the right atrium 3. Enteric tube noted diaphragm. Tip of the tube is not in this radiograph.
--- NOTE | 2025-07-16 23:37 | DVHPN2 ---
Progress Note - Dictate Date Seen: Jul 16, 2025 Medical Necessity Reason Pt with a Central, PICC or Fol: Yes The following are medically ne: Clifton Catheter Reason for clifton catheter: Strict I&O Subjective Patient seen and examined at bedside. Sedated, intubated on mechanical ventilator. Overnight events reviewed. vital signs Vital Sign Date Time Temp Pulse Resp B/P (MAP) Pulse Ox O2 Delivery O2 Flow Rate FiO2 07/16/25 23:15 98.4 81 20 99/62 (74) 91 209.1 07/16/25 22:23 35 07/16/25 22:00 Mechanical Ventilator+ Total Intake and Output 07/15/25 07/15/25 07/16/25 15:00 23:00 07:00 Intake Total 653.651 ml 332.272 ml 250.859 ml Output Total 625 ml 585 ml Balance 653.651 ml -292.728 ml -334.141 ml medications Current Medications Medications Dose Ordered Sig/Cameron Route Start Time Stop Time Status Last Admin Dose Admin Midazolam HCl 50 ml @ 1 mls/hr Q24H IV 07/10/25 10:45 07/13/25 21:02 2 MLS/HR Fentanyl Citrate 250 ml @ 2.5 mls/hr Q24H IV 07/10/25 13:30 07/15/25 18:31 17.5 MLS/HR Vancomycin HCl 0 ml @ 0 mls/hr UD IV 07/10/25 19:15 Ondansetron HCl 4 mg Q4HP PRN IV 07/10/25 19:15 Enoxaparin Sodium 40 mg DAILY SC 07/11/25 10:00 07/15/25 10:00 40 MG Nitroglycerin 0.4 mg Q5MINP PRN SL 07/10/25 19:15 Morphine Sulfate 2 mg Q30M PRN IV 07/10/25 19:15 Pantoprazole Sodium 40 mg DAILY IV 07/11/25 10:45 07/16/25 09:06 40 MG Enteral Nutritional Formula 1,000 ml 30ML/HR GT 07/11/25 10:45 07/13/25 18:33 1,000 ML Methylprednisolone Sodium Succinate 40 mg BID IV 07/11/25 22:00 07/16/25 21:56 40 MG Ipratropium [place] 0.5 mg Q6HR NEB 07/11/25 12:00 07/16/25 18:23 0.5 MG Albuterol 2.5 mg Q6HR NEB 07/11/25 18:00 07/16/25 18:23 2.5 MG Sodium Chloride 10 ml QSHIFT@10,22 IV 07/12/25 22:00 07/16/25 21:56 10 ML Norepinephrine Bitartrate 250 ml @ 0.938 mls/ hr Q24H IV 07/12/25 19:15 07/15/25 01:30 0.938 MLS/HR Acetaminophen 650 mg Q6HP PRN GT 07/13/25 13:30 07/14/25 17:24 650 MG Meropenem 50 ml @ 17 mls/hr Q8HR IV 07/14/25 14:00 07/16/25 21:56 17 MLS/HR Acetylcysteine 200 mg Q6HR NEB 07/14/25 12:30 07/16/25 18:23 200 MG Propofol 100 ml @ 2.223 mls/ hr Q24H IV 07/14/25 16:30 07/16/25 15:59 8.892 MLS/HR Micafungin Sodium 100 mg/Sodium Chloride 100 ml @ 100 mls/hr DAILY@0900 IV 07/16/25 09:00 07/16/25 09:06 100 MLS/HR Vancomycin HCl 100 ml @ 100 mls/hr Q12HR@0600,1800 IV 07/16/25 18:00 07/16/25 18:24 100 MLS/HR objective Gen.: Patient lying in bed in medical ICU. Sedated, intubated on mechanical ventilator. Head: Normocephalic, atraumatic. Eyes: PERRLA. Ears: Normal external anatomy. Throat: Endotracheal tube and orogastric tube in place. Neck: Supple, trachea midline. Chest: Transmitted breath sounds bilaterally. Decreased air entry bilaterally. No wheezing. Bibasilar crackles. Cardiovascular: Positive S1, positive S2. Regular rate and rhythm. Abdomen: Positive bowel sounds in all 4 quadrants. Soft, nontender, nondistended. : Clifton in place. Normal external genitalia. Rectal: Deferred. Skin: Warm, dry. Intact. Extremities: 2+ radial pulses bilaterally. No lower extremity edema. Neuro: Sedated. laboratory and microbiology Laboratory Tests 07/16/25 03:21 Test 07/16/25 03:21 Range/Units Serum Glucose 121 H 74-106 mg/dL Assessment/Plan Impression: Acute on chronic hypoxic respiratory failure On mechanical ventilator Chronic obstructive pulmonary disease Dementia Plan: s/p intubation on mechanical ventilator. CXR image and report reviewed. Devices in place. ABG reviewed, compensated. On AC mode; RR 20, VT 550, PEEP 5, FiO2 35% Titrate FIO2 to keep O2 saturation above 90%. VAP bundle. Daily ABG and CXR while intubated Sedate for ventilator synchrony - on Propofol and Fentanyl Continue antibiotics. F/u cultures. Continue antifungal Increased ET tube secretions S/p bronchoscopy on 07/14/25 Pressors as necessary for hemodynamic support Titrate to keep mean arterial pressure greater than 65 mmHg. Monitor renal function Monitor electrolytes. Supplement as necessary. Monitor ins and outs. Overall poor prognosis d/t end-stage COPD. Updated on plan of care. GI/DVT prophylaxis. Prognosis: Poor given patient's multiple co-morbidities. Condition: Critical Rest of plan per hospitalist and other consultants. A total of 35 minutes of critical care time was spent reviewing the patient record, examining the patient, making a diagnostic and therapeutic plan, discussing this plan with the medical personnel, following up on diagnostic studies and following the patient for clinical stability excluding any and all procedures. At least 50% of this time was spent in direct, [id number] contact. Thank you Dr. García for allowing me to participate in this patient's care. Further recommendations will depend on the patient's clinical course. Please do not hesitate to contact me if you have any questions or concerns. This medical document was created using an electronic medical record system with [employer] dictation system. Although these documentations are being carefully reviewed, there may still be some phonetic and typographical changes. The errors are purely typographical, due to imperfection on the software program, and do not reflect any compromise in the patient's medical care. Dietary Evaluation Review Comments: Nutrition Recommendation: 1) TF Jevity 1.2Cal @ 60ml/hr x 24hr (goal) along with Pro-stat 1 pk daily. Start @ 20ml/hr, increase 10ml/hr Q4H until goal is reached. TF @ goal volume along with Pro-Stat provide 1828 kcal (100% energy needs), 95 gm protein (100% protein needs), 1162 ml free water. 2) Water flush 120ml Q4H if allowed, adjust PRN 3) TPN if NPO >7 days 4) Monitor NPO status, lab values, wt trend, I/O Expected Outcomes/Goals: To meet >75% estimated needs Lab values to improve Fu 2-3 days Plan discussed with: Spouse, Other (HEATHER Kaplan) Critical Care Time(min): 35 LORE JOHNSON MD Jul 16, 2025 23:37
[2025-07-17] VITALS (106 sets, daily range): BP systolic 89–153; BP diastolic 48–96; PULSE 52–95; RESP 15–24; TEMP 97.9–98.8; O2SAT 90–100
[2025-07-17 03:51] LABS: Hematocrit 44.5 % (41.0-53.0); Hemoglobin 14.6 g/dL (13.5-17.5); Mean Corpuscular Hemoglobin 27.4 pg (28.0-32.0); Mean Corpuscular Volume 83.3 fL (80.0-100.0)
[2025-07-17 04:07] LABS: Alanine Aminotransferase 32 U/L (7-40); Albumin 3.3 g/dL (3.2-4.8); Alkaline Phosphatase 82 U/L (46-116); Anion Gap 9 (5-15); BUN/Creatinine Ratio 42.3 (10.0-20.0); Blood Urea Nitrogen 30 mg/dL (9-23); Calcium 9.0 mg/dL (8.7-10.4); Carbon Dioxide 30 mmol/L (20-31); Chloride 104 mmol/L (98-107); Glucose 107 mg/dL (74-106); Magnesium 2.6 mg/dL (1.6-2.6); Potassium 4.6 mmol/L (3.5-5.1); Sodium 143 mmol/L (136-145); Total Protein 5.5 g/dL (5.7-8.2)
[2025-07-17 04:08] LABS: Bilirubin, Total 0.6 mg/dL (0.2-1.0)
[2025-07-17 04:47] LABS: Total Cells Counted 100.0 (100)
--- NOTE | 2025-07-17 05:35 | DVH ---
CHEST RADIOGRAPH Indication: INTUBATION Technique: 1 view Comparison: XY CHEST PORTABLE on DOS: 07/16/25, XY CHEST PORTABLE on DOS: 07/16/25, XY CHEST PORTABLE o n DOS: 07/15/25, XY CHEST PORTABLE on DOS: 07/14/25, XY CHEST PORTABLE on DOS: 07/13/25 FINDINGS: Lines and Tubes: Unchanged endotracheal tube, enteric tube, and left upper extremity PICC. Lungs/Pleura: Unchanged. Cardiomediastinum: Unchanged. Other: Osseous structures are unchanged. IMPRESSION: 1. No significant change from the previous study. Stable support devices. Mild scattered airspace op acities in both lungs.
[2025-07-17 08:15] LABS: Base Excess 3.8 mmol/L (-2.0-3.0)
--- NOTE | 2025-07-17 13:10 | DVHPN2 ---
Subjective The patient is seen and examined at bedside. No change overnight. Remained intubated. Failed CPAP trial. Reviewed: Care Plan, H&P, Labs, Medications, Previous Orders, Radiology Changes from previous H/P or p: No Changes Objective Vitals Vital Signs Date Time Temp Pulse Resp B/P (MAP) Pulse Ox O2 Delivery O2 Flow Rate FiO2 07/17/25 11:59 62 20 109/53 (71) 96 30 07/17/25 08:00 Mechanical Ventilator+ 07/17/25 06:15 98.8 98.8 Intake/Output Intake and Output 07/17/25 07:00 Intake Total 862.232 ml Output Total 850 ml Balance 12.232 ml Intake Oral 0 ml IV Total 862.232 ml Output Urine Total 750 ml Gastric Drainage Total 100 ml General Appearance: Other (Intubated, on vent, unable to exam) HEENT: Atraumatic Neck: Supple Lungs: Clear to auscultation, Other (Intubated) Cardiovascular: Regular rate, Normal S1, Normal S2, No murmurs, Gallops, Rubs Abdomen: Normal bowel sounds, Soft, No tenderness Neuro: Cranial nerves 3-12 NL Psych/Mental Status: Mental status NL Medications Current Medications Medications Dose Ordered Sig/Cameron Route Start Time Stop Time Status Last Admin Dose Admin Midazolam HCl 50 ml @ 1 mls/hr Q24H IV 07/10/25 10:45 07/13/25 21:02 2 MLS/HR Fentanyl Citrate 250 ml @ 2.5 mls/hr Q24H IV 07/10/25 13:30 07/15/25 18:31 17.5 MLS/HR Vancomycin HCl 0 ml @ 0 mls/hr UD IV 07/10/25 19:15 Ondansetron HCl 4 mg Q4HP PRN IV 07/10/25 19:15 Enoxaparin Sodium 40 mg DAILY SC 07/11/25 10:00 07/17/25 10:27 40 MG Nitroglycerin 0.4 mg Q5MINP PRN SL 07/10/25 19:15 Morphine Sulfate 2 mg Q30M PRN IV 07/10/25 19:15 Pantoprazole Sodium 40 mg DAILY IV 07/11/25 10:45 07/17/25 10:27 40 MG Enteral Nutritional Formula 1,000 ml 30ML/HR GT 07/11/25 10:45 07/13/25 18:33 1,000 ML Methylprednisolone Sodium Succinate 40 mg BID IV 07/11/25 22:00 07/17/25 10:27 40 MG Ipratropium [place] 0.5 mg Q6HR NEB 07/11/25 12:00 07/17/25 11:59 0.5 MG Albuterol 2.5 mg Q6HR NEB 07/11/25 18:00 07/17/25 11:59 2.5 MG Sodium Chloride 10 ml QSHIFT@10,22 IV 07/12/25 22:00 07/17/25 10:27 10 ML Norepinephrine Bitartrate 250 ml @ 0.938 mls/ hr Q24H IV 07/12/25 19:15 07/15/25 01:30 0.938 MLS/HR Acetaminophen 650 mg Q6HP PRN GT 07/13/25 13:30 07/14/25 17:24 650 MG Meropenem 50 ml @ 17 mls/hr Q8HR IV 07/14/25 14:00 07/17/25 05:53 17 MLS/HR Acetylcysteine 200 mg Q6HR NEB 07/14/25 12:30 07/17/25 11:59 200 MG Propofol 100 ml @ 2.223 mls/ hr Q24H IV 07/14/25 16:30 07/17/25 01:10 8.892 MLS/HR Micafungin Sodium 100 mg/Sodium Chloride 100 ml @ 100 mls/hr DAILY@0900 IV 07/16/25 09:00 07/17/25 10:27 100 MLS/HR Vancomycin HCl 100 ml @ 100 mls/hr Q12HR@0600,1800 IV 07/16/25 18:00 07/17/25 05:53 100 MLS/HR Laboratory Results Laboratory Tests 07/17/25 03:07 Chemistry Test 07/17/25 03:07 Albumin 3.3 g/dL (3.2-4.8) Calcium Level 9.0 mg/dL (8.7-10.4) Magnesium Level 2.6 mg/dL (1.6-2.6) Total Protein 5.5 g/dL (5.7-8.2) L LFT Test 07/17/25 03:07 Alanine Aminotransferase (ALT) 32 U/L (7-40) Alkaline Phosphatase 82 U/L (46-116) Aspartate Amino Transferase (AST) 14 U/L (13-40) Total Bilirubin 0.6 mg/dL (0.2-1.0) Urinalysis Test 07/10/25 10:04 Urine Color Light-yellow (Yellow) Urine Clarity Clear (Clear) Urine pH 5.0 (5.0-9.0) Urine Specific [place] 1.011 (1.001-1.035) Urine Protein Negative (Negative) Urine Ketones Negative (Negative) Urine Blood Negative /uL (Negative) Urine Nitrite Negative (Negative) Urine Bilirubin Negative (Negative) Urine Urobilinogen Normal mg/dL (Negative) Urine Leukocyte Esterase Negative /uL (Negative) Urine RBC 1 /hpf (0 - 3) Urine Microscopic WBC 2 /HPF (0-3) Urine Squamous Epithelial Cells Few /hpf (<5) Urine Bacteria None seen /hpf (None Seen) Urine Mucus Few (None Seen) Urine Glucose Normal mg/dL (Normal) Blood Gas Results Test 07/17/25 07:52 Arterial Blood pH 7.450 (7.350-7.450) FiO2 % 35.0 Microbiology Microbiology Date/Time Source Procedure Growth Status 07/13/25 22:05 Trachea Gram Stain - Final Resulted 07/13/25 22:05 Trachea Respiratory Culture - Preliminary Resulted 07/10/25 10:10 Blood Blood Culture - Final NO GROWTH AFTER 5 DAYS OF INCUBATION. Complete Labs and/or images reviewed: Labs reviewed by me Assessment/Plan Assessment/Plan [employer] # Acute hypoxic/metabolic encephalopathy # HX of dementia -sedated and intubated, on fentanyl and Versed -supportive management -delirium precautions -vitamin B12 wnl -TSH is low, ordered T3-T4, pending CVS # septic shock likely from pneumonia # HTN -currently on Levophed, titrating down as tolerated -avoid antihypertensives -strict I&Os -continuously monitoring -antibiotics vanc and Levaquin RS # acute on chronic hypercapnic/hypoxic respiratory failure status post intubation # COPD exacerbation # emphysema # Acute g positive/negative bacterial PNA # sepsis with shock likely due to above # ruled out PE -ICU status -vent settings are MV RR 20, VT 500, FiO2 30%, peep 5. -chest x-ray showed bilateral lower opacities with the emphysematous changes -CT angio showed no acute PE -ABG on admission showed respiratory acidosis -monitor daily with the ABGs and CXR -ordered respiratory cultures along with pancultures -continue vancomycin -discontinued Levaquin and cefepime today(07/14) and added meropenem -added methylprednisolone 40 mg b.i.d. along with med-nebs -CPAP trial today again tomorrow -given 1 dose of Lasix 20 mg -BRONCHOSCOPY DONE, SENT FOR THE CULTURES -the cultures showing yeast, added micafungin to current regimen GI/Analy # PUD PPX: Protonix 40 mg /Kidney/Metabolic # BPH-we will start tamsulosin finasteride once extubation, Ann is in -monitor electrolytes, replenish as needed -strict I&O was -avoid nephrotoxic agents Heme-Onc MSK/ Cut # Deconditioning -PT after extubation DVT PPX: Lovenox PUD PPX: Protonix Diet: Glucerna Drips: Fentanyl Versed Levophed off since 07/13 Lines Intubation 07/10 Bronchoscopy done today and changed antibiotic to meropenem Goals of care: Patient have advanced directives with says DNR/DNI. So patient's family decided they are okay with what patient is currently on like intubation on 1 pressor but they do not want to go beyond that and if he coded again DNR/DNI. The patient fell CPAP trial today. Continuing intubation. Discussed with RN. Per she wanted to talk to the doctor on Friday regarding to terminal wean/extubation/comfort care Critical care spent for this case is 38 minutes. Plan discussed with: Other (RN) My Orders Orders - YG KELLER MD Procedure Category Date Status Time Chest Portable XY 07/16/25 Resulted 19:49 Chest Portable XY 07/17/25 Resulted 04:00 Date of Service: Jul 17, 2025 Billing Provider: YG KELLER MD Common Visit Codes: 40052-PROSVSBY CARE 30-74 MIN YG KELLER MD Jul 17, 2025 13:10
--- NOTE | 2025-07-17 22:59 | DVHPN2 ---
Progress Note - Dictate Date Seen: Jul 17, 2025 Medical Necessity Reason Pt with a Central, PICC or Fol: Yes The following are medically ne: Clifton Catheter Reason for clifton catheter: Strict I&O Subjective Patient seen and examined at bedside. Sedated, intubated on mechanical ventilator. Overnight events reviewed. vital signs Vital Sign Date Time Temp Pulse Resp B/P (MAP) Pulse Ox O2 Delivery O2 Flow Rate FiO2 07/17/25 22:30 98.1 56 20 96 208.6 07/17/25 22:04 30 07/17/25 22:00 Mechanical Ventilator+ Total Intake and Output 07/16/25 07/16/25 07/17/25 15:00 23:00 07:00 Intake Total 499.744 ml 131.244 ml 247.636 ml Output Total 530 ml 320 ml Balance 499.744 ml -398.756 ml -72.364 ml medications Current Medications Medications Dose Ordered Sig/Cameron Route Start Time Stop Time Status Last Admin Dose Admin Midazolam HCl 50 ml @ 1 mls/hr Q24H IV 07/10/25 10:45 07/13/25 21:02 2 MLS/HR Fentanyl Citrate 250 ml @ 2.5 mls/hr Q24H IV 07/10/25 13:30 07/15/25 18:31 17.5 MLS/HR Vancomycin HCl 0 ml @ 0 mls/hr UD IV 07/10/25 19:15 Ondansetron HCl 4 mg Q4HP PRN IV 07/10/25 19:15 Enoxaparin Sodium 40 mg DAILY SC 07/11/25 10:00 07/17/25 10:27 40 MG Nitroglycerin 0.4 mg Q5MINP PRN SL 07/10/25 19:15 Morphine Sulfate 2 mg Q30M PRN IV 07/10/25 19:15 Pantoprazole Sodium 40 mg DAILY IV 07/11/25 10:45 07/17/25 10:27 40 MG Enteral Nutritional Formula 1,000 ml 30ML/HR GT 07/11/25 10:45 07/13/25 18:33 1,000 ML Methylprednisolone Sodium Succinate 40 mg BID IV 07/11/25 22:00 07/17/25 21:28 40 MG Ipratropium [place] 0.5 mg Q6HR NEB 07/11/25 12:00 07/17/25 18:37 0.5 MG Albuterol 2.5 mg Q6HR NEB 07/11/25 18:00 07/17/25 18:38 2.5 MG Sodium Chloride 10 ml QSHIFT@10,22 IV 07/12/25 22:00 07/17/25 21:29 10 ML Norepinephrine Bitartrate 250 ml @ 0.938 mls/ hr Q24H IV 07/12/25 19:15 07/15/25 01:30 0.938 MLS/HR Acetaminophen 650 mg Q6HP PRN GT 07/13/25 13:30 07/14/25 17:24 650 MG Meropenem 50 ml @ 17 mls/hr Q8HR IV 07/14/25 14:00 07/17/25 21:26 17 MLS/HR Acetylcysteine 200 mg Q6HR NEB 07/14/25 12:30 07/17/25 18:38 200 MG Propofol 100 ml @ 2.223 mls/ hr Q24H IV 07/14/25 16:30 07/17/25 21:33 8.892 MLS/HR Micafungin Sodium 100 mg/Sodium Chloride 100 ml @ 100 mls/hr DAILY@0900 IV 07/16/25 09:00 07/17/25 10:27 100 MLS/HR Vancomycin HCl 100 ml @ 100 mls/hr Q12HR@0600,1800 IV 07/16/25 18:00 07/17/25 18:30 100 MLS/HR objective Gen.: Patient lying in bed in medical ICU. Sedated, intubated on mechanical ventilator. Head: Normocephalic, atraumatic. Eyes: PERRLA. Ears: Normal external anatomy. Throat: Endotracheal tube and orogastric tube in place. Neck: Supple, trachea midline. Chest: Transmitted breath sounds bilaterally. Decreased air entry bilaterally. No wheezing. Bibasilar crackles. Cardiovascular: Positive S1, positive S2. Regular rate and rhythm. Abdomen: Positive bowel sounds in all 4 quadrants. Soft, nontender, nondistended. : Clifton in place. Normal external genitalia. Rectal: Deferred. Skin: Warm, dry. Intact. Extremities: 2+ radial pulses bilaterally. No lower extremity edema. Neuro: Sedated. laboratory and microbiology Laboratory Tests 07/17/25 03:07 Test 07/17/25 03:07 Range/Units Serum Glucose 107 H 74-106 mg/dL Assessment/Plan Impression: Acute on chronic hypoxic respiratory failure On mechanical ventilator Chronic obstructive pulmonary disease Dementia Events: Remains on vent support On AC mode; RR 20, VT 550, PEEP 5, FiO2 35-->30% Improved FiO2 requirements Sedated on Propofol, Fentanyl CXR reviewed, notable for mild scattered airspace opacities in both lungs. ABG reviewed, compensated. Continue antibiotics Pt tolerated an hour of CPAP yesterday, developed irregular rhythm and was placed back on full support. Patient with poor prognosis. Labs and imaging reviewed. Rest of plan as noted below. Plan: s/p intubation on mechanical ventilator. On AC mode; RR 20, VT 550, PEEP 5, FiO2 30% Titrate FIO2 to keep O2 saturation above 90%. VAP bundle. Daily ABG and CXR while intubated Sedate for ventilator synchrony Continue antibiotics. F/u cultures. Continue antifungal Increased ET tube secretions S/p bronchoscopy on 07/14/25 Pressors as necessary for hemodynamic support Titrate to keep mean arterial pressure greater than 65 mmHg. Monitor renal function Monitor electrolytes. Supplement as necessary. Monitor ins and outs. Overall poor prognosis d/t end-stage COPD. Updated on plan of care. GI/DVT prophylaxis. Prognosis: Poor given patient's multiple co-morbidities. Condition: Critical Rest of plan per hospitalist and other consultants. A total of 35 minutes of critical care time was spent reviewing the patient record, examining the patient, making a diagnostic and therapeutic plan, discussing this plan with the medical personnel, following up on diagnostic studies and following the patient for clinical stability excluding any and all procedures. At least 50% of this time was spent in direct, [id number] contact. Thank you Dr. García for allowing me to participate in this patient's care. Further recommendations will depend on the patient's clinical course. Please do not hesitate to contact me if you have any questions or concerns. This medical document was created using an electronic medical record system with [employer] system. Although these documentations are being carefully reviewed, there may still be some phonetic and typographical changes. The errors are purely typographical, due to imperfection on the software program, and do not reflect any compromise in the patient's medical care. Dietary Evaluation Review Comments: Nutrition Recommendation: 1) TF Jevity 1.2Cal @ 60ml/hr x 24hr (goal) along with Pro-stat 1 pk daily. Start @ 20ml/hr, increase 10ml/hr Q4H until goal is reached. TF @ goal volume along with Pro-Stat provide 1828 kcal (100% energy needs), 95 gm protein (100% protein needs), 1162 ml free water. 2) Water flush 120ml Q4H if allowed, adjust PRN 3) TPN if NPO >7 days 4) Monitor NPO status, lab values, wt trend, I/O Expected Outcomes/Goals: To meet >75% estimated needs Lab values to improve Fu 2-3 days Plan discussed with: Other (HEATHER Hall) Critical Care Time(min): 35 LOER JOHNSON MD Jul 17, 2025 22:59
[2025-07-18] VITALS (106 sets, daily range): BP systolic 110–177; BP diastolic 46–91; PULSE 52–90; RESP 10–29; TEMP 96.8–99.7; O2SAT 90–99
[2025-07-18 04:30] LABS: Hematocrit 44.8 % (41.0-53.0); Hemoglobin 14.4 g/dL (13.5-17.5); Mean Corpuscular Hemoglobin 27.0 pg (28.0-32.0); Mean Corpuscular Volume 83.7 fL (80.0-100.0)
[2025-07-18 04:33] LABS: Chloride 104 mmol/L (98-107); Potassium 4.8 mmol/L (3.5-5.1); Sodium 143 mmol/L (136-145)
[2025-07-18 04:34] LABS: Anion Gap 7 (5-15); Calcium 8.7 mg/dL (8.7-10.4)
[2025-07-18 04:39] LABS: BUN/Creatinine Ratio 40.3 (10.0-20.0); Carbon Dioxide 32 mmol/L (20-31)
[2025-07-18 04:45] LABS: Blood Urea Nitrogen 29 mg/dL (9-23); Glucose 115 mg/dL (74-106)
--- NOTE | 2025-07-18 04:59 | DVH ---
CHEST RADIOGRAPH Indication: PATIENT INTUBATED Technique: Single frontal view of the chest was obtained Comparison: XY CHEST PORTABLE on DOS: 07/17/25 FINDINGS: Lines and Tubes: The endotracheal tube terminates 5.8 cm above the pallavi. The enteric tube courses b elow the left hemidiaphragm and the tip extends outside the field of view. Left PICC terminates in th e superior vena cava. Lungs: Bilateral scattered opacities which are similar to the prior study. Pleura: No effusion. No pneumothorax. Cardiomediastinal contours: Unremarkable Bones: No acute osseous abnormality. IMPRESSION: 1. Bilateral pulmonary opacities which may reflect pneumonia. Findings are similar to prior study. 2. Stable position of the support lines and tubes.
[2025-07-18 05:12] LABS: Total Cells Counted 100.0 (100)
[2025-07-18 07:52] LABS: Base Excess 3.4 mmol/L (-2.0-3.0)
[2025-07-18 11:42] LABS: Base Excess 4.2 mmol/L (-2.0-3.0)
[2025-07-18] MEDS: FUROSEMIDE 20 MG/2 ML VIAL IV ONE ×3 (14:08→15:22)
[2025-07-18] MEDS: LACTULOSE 20Gm/30ML SOLN PO ONE (14:15)
[2025-07-18] MEDS: FUROSEMIDE 20 MG/2 ML VIAL ONE (14:15)
--- NOTE | 2025-07-18 17:21 | DVHPNRES ---
Progress Note Date Seen: Jul 18, 2025 Resident Creating Document: MONICA WATTS RESIDENT Medical Necessity Reason Pt with a Central, PICC or Fol: Yes The following are medically ne: Clifton Catheter Reason for clifton catheter: Strict I&O Subjective Review of Systems This is a 75-year-old male patient with COPD on 3 L home oxygen, hypertension, BPH, early onset dementia hospital course has been prolonged as patient could intubated secondary to COPD exacerbation, 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 Extubated 07/18. Overnight afebrile, normotensive, on 30% FiO2, urine output 950 cc, 2 doses of 20 Lasix provided with the patient, patient made almost 2000 cc of urine during the day shift, subsequently patient tolerated CPAP trial, Niff-35, tidal volume 681, vital capacity 1150, patient was successfully extubated. Objective vital signs Vital Sign Date Time Temp Pulse Resp B/P (MAP) Pulse Ox O2 Delivery O2 Flow Rate FiO2 07/18/25 15:49 99 Cool Aerosol 8 N/A 07/18/25 15:15 99.5 75 21 147/61 (89) 211.1 Total Intake and Output 07/17/25 07/17/25 07/18/25 15:00 23:00 07:00 Intake Total 248.136 ml 299.168 ml 282.192 ml Output Total 610 ml 350 ml Balance 248.136 ml -310.832 ml -67.808 ml medications Current Medications Medications Dose Ordered Sig/Cameron Route Start Time Stop Time Status Last Admin Dose Admin Fentanyl Citrate 250 ml @ 2.5 mls/hr Q24H IV 07/10/25 13:30 07/18/25 09:52 7.5 MLS/HR Vancomycin HCl 0 ml @ 0 mls/hr UD IV 07/10/25 19:15 Ondansetron HCl 4 mg Q4HP PRN IV 07/10/25 19:15 Enoxaparin Sodium 40 mg DAILY SC 07/11/25 10:00 07/18/25 09:40 40 MG Nitroglycerin 0.4 mg Q5MINP PRN SL 07/10/25 19:15 Morphine Sulfate 2 mg Q30M PRN IV 07/10/25 19:15 Pantoprazole Sodium 40 mg DAILY IV 07/11/25 10:45 07/18/25 09:39 40 MG Methylprednisolone Sodium Succinate 40 mg BID IV 07/11/25 22:00 07/18/25 09:40 40 MG Ipratropium [place] 0.5 mg Q6HR NEB 07/11/25 12:00 07/18/25 12:09 0.5 MG Albuterol 2.5 mg Q6HR NEB 07/11/25 18:00 07/18/25 12:09 2.5 MG Sodium Chloride 10 ml QSHIFT@10,22 IV 07/12/25 22:00 07/18/25 09:40 10 ML Acetaminophen 650 mg Q6HP PRN GT 07/13/25 13:30 07/14/25 17:24 650 MG Meropenem 50 ml @ 17 mls/hr Q8HR IV 07/14/25 14:00 07/18/25 14:15 17 MLS/HR Acetylcysteine 200 mg Q6HR NEB 07/14/25 12:30 07/18/25 12:09 200 MG Vancomycin HCl 100 ml @ 100 mls/hr Q12HR@0600,1800 IV 07/16/25 18:00 07/18/25 05:36 100 MLS/HR Lactulose 30 ml DAILY PO 07/19/25 10:00 Voriconazole 460 mg/Dextrose 296 ml @ 148 mls/hr Q12H IV 07/18/25 18:00 07/19/25 07:59 Voriconazole 300 mg/Dextrose 280 ml @ 140 mls/hr Q12H IV 07/19/25 18:00 Examination Elderly male patient lying in the bed comfortably, no acute distress, on 8 L oxygen supplementation via mask, status post extubation. Left upper extremity PICC line. Responding to commands General: Well-built, afebrile, palor, mucosae are moist Cardiovascular: Regular S1 and S2. No murmurs, gallops or rubs. No JVD elevation. Trace pedal edema bilaterally Respiratory: 8 L oxygen supplementation via mass, bilateral inspiratory wheezing. Patient has cough and gag reflex Abdomen: Soft, nontender, nondistended, normoactive bowel sounds, no rebound tenderness, no organomegaly, no masses Genitourinary: Clifton draining almost 2L urine MSK/skin: Mobilizes 4 limbs. Skin is dry and warm. Right arm is swollen. Neurological: Pupils are isocoric and reactive. laboratory and microbiology Laboratory Tests 07/18/25 03:20 Test 07/18/25 03:20 Range/Units Serum Glucose 115 H 74-106 mg/dL Microbiology Date/Time Source Procedure Growth Status 07/14/25 13:30 Bronchial Washings Gram Stain - Final Resulted 07/14/25 13:30 Bronchial Washings Respiratory Culture - Preliminary Resulted 07/13/25 22:05 Trachea Gram Stain - Final Resulted 07/13/25 22:05 Trachea Respiratory Culture - Preliminary Resulted 07/10/25 10:10 Blood Blood Culture - Final NO GROWTH AFTER 5 DAYS OF INCUBATION. Complete Labs and/or images reviewed: Labs reviewed by me, Image(s) reviewed by me Problem List/Assessment/Plan Problem List/Assessment/Plan NEURO: Acute metabolic encephalopathy secondary to septic shock History of dementia Patient is following commands CARDIOVASCULAR: Septic shock likely Gram-positive and Gram-negative pneumonia Hypertension ? CHF with preserved ejection fraction -IV Lasix 20 mg 2 doses given today 07/18 PULMONARY: COPD exacerbation status post intubation and extubation 07/18 Acute on chronic hypercapnic hypoxic respiratory failure Acute Gram-positive Gram-negative pneumonia Ruled out pulmonary embolism WBC count up trending to 29 Respiratory culture showing yeast, preliminary , follow up with complete results CT angio negative admission IV voriconazole started 07/18, DC micafungin Continue IV vanc and meropenem Solu-Medrol 40 mg b.i.d. Hematology: Secondary hypercoagulable state Elevated D-dimer GENITOURINARY: Benign prostatic hyperplasia Resume home meds once tolerating METABOLIC: Moderate protein calorie malnutrition, albumin INFECTIOUS DISEASE: Gram-positive and Gram-negative pneumonia Septic shock due to above Blood culture negative IV voriconazole started 07/18, DC micafungin Continue IV vanc and meropenem DIET: NPO DVT prophylax: Lovenox 40 mg sc daily GI prophylaxis: Protonix 40 mg IV daily Bowel regimen: Lactulose daily Code status: DNR DNI LINES/DRAINS/ACCESS: IV access: Left upper extremity PICC line 07/12 Drips: Fentanyl 75 Clifton catheter DISPOSITION: ICU Patient's status discussed with patient's Danita at the bedside in which all questions have been answered Critical care time spent more than 83 minutes, including patient care, chart review, and updating the family including cpap trial. Excluding any procedures Case discussed with Dr. Savage Plan discussed with: Patient, Spouse ( Danita at bedside) My Orders My Orders Orders - MONICA WATTS Procedure Category Date Status Time Respiratory Misc. RT 07/18/25 Transmitted Order 10:07 Abg W/ Co-Ox RT 07/18/25 Logged 11:23 Lactulose Oral PHA 07/19/25 In Process 10:00 Extubate JORGE 07/18/25 In Process 14:06 Respiratory Misc. RT 07/18/25 Transmitted Order 15:36 Dietary Evaluation Review Comments: Nutrition Recommendation: 1) TF Jevity 1.2Cal @ 60ml/hr x 24hr (goal) along with Pro-stat 1 pk daily. Start @ 20ml/hr, increase 10ml/hr Q4H until goal is reached. TF @ goal volume along with Pro-Stat provide 1828 kcal (100% energy needs), 95 gm protein (100% protein needs), 1162 ml free water. 2) Water flush 120ml Q4H if allowed, adjust PRN 3) TPN if NPO >7 days 4) Monitor NPO status, lab values, wt trend, I/O Expected Outcomes/Goals: To meet >75% estimated needs Lab values to improve Fu 2-3 days Date of Service: Jul 18, 2025 Billing Provider: MICHELE SAVAGE MD Common Visit Codes: [id number] CARE 30-74 MIN, [id number] CARE-EACH +30MIN MONICA WATTS Jul 18, 2025 17:21 MICHELE SAVAGE MD Jul 19, 2025 15:35
[2025-07-18] MEDS: VORICONAZOLE IV SCH (17:48)
[2025-07-18] MEDS: D5W 5% IV SCH (17:48)
[2025-07-18 18:37] LABS: Potassium 3.8 mmol/L (3.5-5.1)
[2025-07-18 18:43] LABS: Magnesium 2.4 mg/dL (1.6-2.6)
[2025-07-19] VITALS (41 sets, daily range): BP systolic 140–190; BP diastolic 62–91; PULSE 63–94; RESP 17–36; TEMP 97.7–99.7; O2SAT 88–98
--- NOTE | 2025-07-19 02:56 | DVH ---
CHEST RADIOGRAPH Indication: Follow up after extubation Technique: Single frontal view of the chest was obtained Comparison: XY CHEST PORTABLE on DOS: 07/18/25, XY CHEST PORTABLE on DOS: 07/17/25, XY CHEST PORTABLE o n DOS: 07/16/25 IMPRESSION: There is interval removal of endotracheal tube and enteric tube. The heart appears normal in size. M ild pulmonary vascular congestion. No sizable effusion or pneumothorax.
[2025-07-19] MEDS: FUROSEMIDE 20 MG/2 ML VIAL ONE (04:11)
[2025-07-19] MEDS: hydrALAZINE HCL 20 MG/ML VL ONE (04:12)
[2025-07-19 04:42] LABS: Hematocrit 44.2 % (41.0-53.0); Hemoglobin 14.7 g/dL (13.5-17.5); Mean Corpuscular Hemoglobin 27.6 pg (28.0-32.0); Mean Corpuscular Volume 83.2 fL (80.0-100.0)
[2025-07-19 04:43] LABS: Chloride 103 mmol/L (98-107); Potassium 3.9 mmol/L (3.5-5.1); Sodium 145 mmol/L (136-145)
[2025-07-19 04:44] LABS: Anion Gap 9 (5-15)
[2025-07-19 04:45] LABS: Calcium 9.0 mg/dL (8.7-10.4)
[2025-07-19 04:50] LABS: BUN/Creatinine Ratio 41.9 (10.0-20.0); Magnesium 2.5 mg/dL (1.6-2.6)
[2025-07-19] MEDS: FUROSEMIDE 20 MG/2 ML VIAL IV ONE ×2 (05:06→16:25)
[2025-07-19] MEDS: hydrALAZINE HCL 20 MG/ML VL IV PRN (05:07)
[2025-07-19 05:23] LABS: Blood Urea Nitrogen 31 mg/dL (9-23); Carbon Dioxide 33 mmol/L (20-31); Glucose 109 mg/dL (74-106)
[2025-07-19 05:52] LABS: Total Cells Counted 100.0 (100)
[2025-07-19] MEDS: LACTULOSE 20Gm/30ML SOLN PO SCH (09:27)
[2025-07-19] MEDS: LOSARTAN POTASSIUM 50 MG TAB PO ONE (17:47)
[2025-07-19] MEDS: VORICONAZOLE INJ 300 MG in D5W 5% 250 ML IV SCH (18:17)
--- NOTE | 2025-07-19 19:23 | DVHPNRES ---
Progress Note Date Seen: Jul 19, 2025 Resident Creating Document: ZAYDA OLMOS RESIDENT Medical Necessity Reason Pt with a Central, PICC or Fol: Yes The following are medically ne: Clifton Catheter Reason for clifton catheter: Strict I&O Subjective Review of Systems This is a 75-year-old male patient with COPD on 3 L home oxygen, hypertension, BPH, early onset dementia hospital course has been prolonged as patient could intubated secondary to COPD exacerbation, 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 Extubated 07/18. Patient was seen and examined in the ICU. He is alert oriented X1, follow commands and on 6 L through Oxymizer saturating 93%. was on the bedside. No overnight significant event, T-max is 99.7, pulse 94 and blood pressure was elevated. Started NG tube feeding with Glucerna and resumed home antihypertensives. Objective vital signs Vital Sign Date Time Temp Pulse Resp B/P (MAP) Pulse Ox O2 Delivery O2 Flow Rate FiO2 07/19/25 18:00 82 22 170/87 (114) 88 07/19/25 18:00 Oxymizer 7 N/A 07/19/25 16:00 98.7 98.7 Total Intake and Output 07/18/25 07/18/25 07/19/25 15:00 23:00 07:00 Intake Total 47.0 ml 717 ml 299 ml Output Total 1950 ml 2100 ml Balance 47.0 ml -1233 ml -1801 ml medications Current Medications Medications Dose Ordered Sig/Cameron Route Start Time Stop Time Status Last Admin Dose Admin Vancomycin HCl 0 ml @ 0 mls/hr UD IV 07/10/25 19:15 Ondansetron HCl 4 mg Q4HP PRN IV 07/10/25 19:15 Enoxaparin Sodium 40 mg DAILY SC 07/11/25 10:00 07/19/25 09:26 40 MG Nitroglycerin 0.4 mg Q5MINP PRN SL 07/10/25 19:15 Morphine Sulfate 2 mg Q30M PRN IV 07/10/25 19:15 Pantoprazole Sodium 40 mg DAILY IV 07/11/25 10:45 07/19/25 09:25 40 MG Ipratropium [place] 0.5 mg Q6HR NEB 07/11/25 12:00 07/19/25 18:43 0.5 MG Albuterol 2.5 mg Q6HR NEB 07/11/25 18:00 07/19/25 18:43 2.5 MG Sodium Chloride 10 ml QSHIFT@10,22 IV 07/12/25 22:00 07/19/25 09:25 10 ML Acetaminophen 650 mg Q6HP PRN GT 07/13/25 13:30 07/14/25 17:24 650 MG Meropenem 50 ml @ 17 mls/hr Q8HR IV 07/14/25 14:00 07/19/25 13:58 17 MLS/HR Acetylcysteine 200 mg Q6HR NEB 07/14/25 12:30 07/19/25 18:43 200 MG Vancomycin HCl 100 ml @ 100 mls/hr Q12HR@0600,1800 IV 07/16/25 18:00 07/19/25 17:47 100 MLS/HR Lactulose 30 ml DAILY PO 07/19/25 10:00 Voriconazole 300 mg/Dextrose 280 ml @ 140 mls/hr Q12H IV 07/19/25 18:00 07/19/25 18:17 140 MLS/HR Hydralazine HCl 10 mg Q6HP PRN IV 07/19/25 04:00 07/19/25 05:07 10 MG Enteral Nutritional Formula 1,000 ml 30ML/HR GT 07/19/25 17:15 Losartan Potassium 100 mg DAILY PO 07/20/25 10:00 Amlodipine Besylate 5 mg DAILY PO 07/20/25 10:00 Examination Examination Elderly male patient lying in the bed comfortably, no acute distress, on 6 L oxygen supplementation via oxymizer status post extubation. Left upper extremity PICC line. Responding to commands General: Well-built, afebrile, palor, mucosae are moist Cardiovascular: Regular S1 and S2. No murmurs, gallops or rubs. No JVD elevation. Trace pedal edema bilaterally Respiratory: 6 L oxygen supplementation via Oxymizer, bilateral inspiratory wheezing. Patient has cough and gag reflex Abdomen: Soft, nontender, nondistended, normoactive bowel sounds, no rebound tenderness, no organomegaly, no masses Genitourinary: Clifton draining almost 2L urine MSK/skin: Mobilizes 4 limbs. Skin is dry and warm. Right arm is swollen. Neurological: Pupils are isocoric and reactive. laboratory and microbiology Laboratory Tests 07/19/25 02:56 Test 07/19/25 02:56 Range/Units Serum Glucose 109 H 74-106 mg/dL Microbiology Date/Time Source Procedure Growth Status 07/14/25 13:30 Bronchial Washings Gram Stain - Final Resulted 07/14/25 13:30 Respiratory Culture - Preliminary Presumptive Caitlin albicans Presumptive Caitlin tropicalis Resulted 07/13/25 22:05 Trachea Gram Stain - Final Resulted 07/13/25 22:05 Trachea Respiratory Culture - Preliminary Resulted 07/10/25 10:10 Blood Blood Culture - Final NO GROWTH AFTER 5 DAYS OF INCUBATION. Complete Labs and/or images reviewed: Labs reviewed by me, Image(s) reviewed by me Problem List/Assessment/Plan Problem List/Assessment/Plan Assessment and plan: NEURO: Acute metabolic encephalopathy secondary to septic shock History of dementia Patient is following commands CARDIOVASCULAR: Septic shock likely Gram-positive and Gram-negative pneumonia Hypertension Possible chronic diastolic heart failure with preserved ejection fraction -IV Lasix 20 mg once given PULMONARY: COPD exacerbation status extubation 07/18 Acute on chronic hypercapnic hypoxic respiratory failure Gram-positive Gram-negative pneumonia Possible fungal pneumonia Ruled out pulmonary embolism - WBC count up trending to 31 - Respiratory culture showing Caitlin albicans and tropicalis - CT angio negative admission - Continue IV vanc, meropenem and voriconazole HEMATOLOGY : Secondary hypercoagulable state Elevated D-dimer GENITOURINARY: Benign prostatic hyperplasia Resume home meds once tolerating METABOLIC: Moderate protein calorie malnutrition, albumin INFECTIOUS DISEASE: Gram-positive and Gram-negative pneumonia Septic shock due to above - Blood culture negative - IV voriconazole started 07/18, DC micafungin - Continue IV vanc and meropenem DIET: NG tube feeding with Glucerna DVT prophylax: Lovenox 40 mg sc daily GI prophylaxis: Protonix 40 mg IV daily Bowel regimen: Lactulose daily Code status: DNR DNI LINES/DRAINS/ACCESS: IV access: Left upper extremity PICC line 07/12 Clifton catheter DISPOSITION: ICU Patient's status discussed with patient's Danita at the bedside in which all questions have been answered Critical care time spent more than 63 minutes, including patient care, chart review, and updating the family . Case discussed with Dr. Savage Plan discussed with: Other (, RN) My Orders My Orders Orders - ZAYDA OLMOS RESIDENT Procedure Category Date Status Time * Swallow Request ST 07/19/25 Transmitted 11:19 Pt Request For Service PT 07/19/25 Logged 16:58 Nutritional PHA 07/19/25 In Process Supplements (Glucerna 17:15 Losartan Tablet PHA 07/20/25 In Process (Cozaar Tablet) 10:00 Amlodipine Tablet PHA 07/20/25 In Process (Norvasc Tablet) 10:00 Dietary Evaluation Review Comments: Nutrition Recommendation: 1) TF Jevity 1.2Cal @ 60ml/hr x 24hr (goal) along with Pro-stat 1 pk daily. Start @ 20ml/hr, increase 10ml/hr Q4H until goal is reached. TF @ goal volume along with Pro-Stat provide 1828 kcal (100% energy needs), 95 gm protein (100% protein needs), 1162 ml free water. 2) Water flush 120ml Q4H if allowed, adjust PRN 3) TPN if NPO >7 days 4) Monitor NPO status, lab values, wt trend, I/O Expected Outcomes/Goals: To meet >75% estimated needs Lab values to improve Fu 2-3 days Date of Service: Jul 19, 2025 Billing Provider: MICHELE SAVAGE MD Common Visit Codes: [id number] CARE 30-74 MIN ZAYDA OLMOS RESIDENT Jul 19, 2025 19:23 MICHELE SAVAGE MD Jul 20, 2025 15:41
[2025-07-20] VITALS (32 sets, daily range): BP systolic 103–157; BP diastolic 59–79; PULSE 58–91; RESP 11–27; TEMP 97.1–98.2; O2SAT 89–98
[2025-07-20 04:10] LABS: Hematocrit 42.5 % (41.0-53.0); Hemoglobin 14.1 g/dL (13.5-17.5); Mean Corpuscular Hemoglobin 27.4 pg (28.0-32.0); Mean Corpuscular Volume 82.8 fL (80.0-100.0)
[2025-07-20 04:28] LABS: Anion Gap 10 (5-15); Chloride 102 mmol/L (98-107); Potassium 3.6 mmol/L (3.5-5.1)
[2025-07-20 04:30] LABS: Calcium 8.9 mg/dL (8.7-10.4)
[2025-07-20 04:34] LABS: BUN/Creatinine Ratio 57.7 (10.0-20.0)
[2025-07-20 04:39] LABS: Blood Urea Nitrogen 41 mg/dL (9-23); Carbon Dioxide 35 mmol/L (20-31); Glucose 113 mg/dL (74-106); Sodium 147 mmol/L (136-145)
[2025-07-20] MEDS: AZITHROMYCIN 500MG/ 250ML 250 ML IV SCH (07:00)
--- NOTE | 2025-07-20 07:29 | DVH ---
INDICATION: NG TUBE PLACEMENT TECHNIQUE: Frontal view of the chest. COMPARISON: XY CHEST XRAY 1 VIEW on DOS: 07/19/25, XY CHEST PORTABLE on DOS: 07/18/25, XY CHEST PORTABL E on DOS: 07/17/25, XY CHEST PORTABLE on DOS: 07/16/25, XY CHEST PORTABLE on DOS: 07/16/25 FINDINGS: NG tube tip in stomach. The heart and mediastinal contours are grossly unremarkable. There is no celina dence of pleural disease. The lungs are clear. The bony structures of the chest are intact without fracture. IMPRESSION: 1. No evidence of acute disease.
[2025-07-20] MEDS: DOXYCYCLINE 100MG/100ML 100 ML IV SCH (10:37)
[2025-07-20] MEDS: LOSARTAN POTASSIUM 50 MG TAB PO SCH (10:38)
[2025-07-20] MEDS ORDERED: hydrALAZINE HCL 20 MG/ML VL IV PRN (11:15)
[2025-07-20 11:50] LABS: Total Cells Counted 99.0 (100)
[2025-07-20] MEDS: VANCOMYCIN 500mg/100mL 100 ML IV SCH (12:12)
[2025-07-20] MEDS: Glucerna 1.2 Cal 1Liter BOTTLE GT SCH (15:41)
[2025-07-20 15:43] LABS: Urine Amorphous Crystal FEW /hpf (None Seen); Urine Protein, UAD 1+ (Negative)
--- NOTE | 2025-07-20 17:07 | DVHPNRES ---
Progress Note Date Seen: Jul 20, 2025 Resident Creating Document: MONICA WATTS RESIDENT Medical Necessity Reason Pt with a Central, PICC or Fol: Yes The following are medically ne: Clifton Catheter Reason for clifton catheter: Strict I&O Subjective Review of Systems This is a 75-year-old male patient with COPD on 3 L home oxygen, hypertension, BPH, early onset dementia hospital course has been prolonged as patient could intubated secondary to COPD exacerbation, 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 Extubated 07/18. 07/18 - Overnight afebrile, normotensive, on 30% FiO2, urine output 950 cc, 2 doses of 20 Lasix provided with the patient, patient made almost 2000 cc of urine during the day shift, subsequently patient tolerated CPAP trial, Niff-35, tidal volume 681, vital capacity 1150, patient was successfully extubated. 07/20 - patient AxOx3, at bedside, on 6L o2. following commands, small BM, RS RUE shows radial DVt. Lovenox started. Starting tube feed, will consider [place]. Na 147 -- hold off lasix, lactulose started. Pulling NG Objective vital signs Vital Sign Date Time Temp Pulse Resp B/P (MAP) Pulse Ox O2 Delivery O2 Flow Rate FiO2 07/20/25 14:00 74 24 116/65 (82) 96 07/20/25 14:00 Oxymizer 6 N/A 07/20/25 12:00 97.7 97.7 Total Intake and Output 07/19/25 07/19/25 07/20/25 15:00 23:00 07:00 Intake Total 51 ml 531 ml 331 ml Output Total 1500 ml 500 ml Balance 51 ml -969 ml -169 ml medications Current Medications Medications Dose Ordered Sig/Cameron Route Start Time Stop Time Status Last Admin Dose Admin Vancomycin HCl 0 ml @ 0 mls/hr UD IV 07/10/25 19:15 Ondansetron HCl 4 mg Q4HP PRN IV 07/10/25 19:15 Enoxaparin Sodium 40 mg DAILY SC 07/11/25 10:00 07/20/25 10:38 40 MG Nitroglycerin 0.4 mg Q5MINP PRN SL 07/10/25 19:15 Morphine Sulfate 2 mg Q30M PRN IV 07/10/25 19:15 Pantoprazole Sodium 40 mg DAILY IV 07/11/25 10:45 07/20/25 10:36 40 MG Ipratropium [place] 0.5 mg Q6HR NEB 07/11/25 12:00 07/20/25 12:05 0.5 MG Albuterol 2.5 mg Q6HR NEB 07/11/25 18:00 07/20/25 12:05 2.5 MG Sodium Chloride 10 ml QSHIFT@10,22 IV 07/12/25 22:00 07/20/25 10:37 10 ML Acetaminophen 650 mg Q6HP PRN GT 07/13/25 13:30 07/14/25 17:24 650 MG Meropenem 50 ml @ 17 mls/hr Q8HR IV 07/14/25 14:00 07/20/25 14:23 17 MLS/HR Acetylcysteine 200 mg Q6HR NEB 07/14/25 12:30 07/20/25 12:05 200 MG Lactulose 30 ml DAILY PO 07/19/25 10:00 07/20/25 10:37 30 ML Enteral Nutritional Formula 1,000 ml 30ML/HR GT 07/19/25 17:15 07/20/25 15:41 1,000 ML Losartan Potassium 100 mg DAILY PO 07/20/25 10:00 07/20/25 10:38 100 MG Amlodipine Besylate 10 mg DAILY PO 07/20/25 10:00 07/20/25 11:44 10 MG Doxycycline Hyclate 100 ml @ 50 mls/hr Q12H IV 07/20/25 10:00 07/24/25 11:00 07/20/25 10:37 50 MLS/HR Vancomycin HCl 100 ml @ 200 mls/hr Q12H IV 07/20/25 12:00 07/20/25 12:12 200 MLS/HR Hydralazine HCl 10 mg Q6HP PRN IV 07/20/25 11:15 Micafungin Sodium 100 mg/Sodium Chloride 100 ml @ 100 mls/hr DAILY IV 07/21/25 10:00 Examination Elderly male patient lying in the bed comfortably, no acute distress, on 6 L oxygen supplementation via mask, status post extubation. Left upper extremity PICC line. Responding to commands General: Well-built, afebrile, palor, mucosae are moist Cardiovascular: Regular S1 and S2. No murmurs, gallops or rubs. No JVD elevation. Trace pedal edema bilaterally Respiratory: 8 L oxygen supplementation via mass, bilateral coarse crackles. Patient has cough and gag reflex Abdomen: Soft, nontender, nondistended, normoactive bowel sounds, no rebound tenderness, no organomegaly, no masses Genitourinary: Clifton draining almost 2L urine MSK/skin: Mobilizes 4 limbs. Skin is dry and warm. Right arm is swollen. Neurological: Pupils are isocoric and reactive. laboratory and microbiology Laboratory Tests 07/20/25 03:47 Test 07/20/25 03:47 Range/Units Serum Glucose 113 H 74-106 mg/dL Microbiology Date/Time Source Procedure Growth Status 07/14/25 13:30 Bronchial Washings Gram Stain - Final Resulted 07/14/25 13:30 Respiratory Culture - Preliminary Presumptive Laly albicans Presumptive Laly tropicalis Resulted 07/13/25 22:05 Trachea Gram Stain - Final Resulted 07/13/25 22:05 Trachea Respiratory Culture - Preliminary Resulted 07/10/25 10:10 Blood Blood Culture - Final NO GROWTH AFTER 5 DAYS OF INCUBATION. Complete Labs and/or images reviewed: Labs reviewed by me, Image(s) reviewed by me Problem List/Assessment/Plan Problem List/Assessment/Plan NEURO: Acute metabolic encephalopathy secondary to septic shock History of dementia ICU acquired weakness Patient is following commands CARDIOVASCULAR: Septic shock likely Gram-positive and Gram-negative pneumonia Hypertension ? CHF with preserved ejection fraction -IV Lasix 20 mg 2 doses given today 07/18 -hold off lasix given na 147, bicarb 35 PULMONARY: COPD exacerbation status post intubation and extubation 07/18 Acute on chronic hypercapnic hypoxic respiratory failure Acute Gram-positive Gram-negative pneumonia Ruled out pulmonary embolism WBC count up trending to 29 to 32 Respiratory culture showing laly, continue micafungin CT angio negative admission DC IV voriconazole Cont micafungin, Continue IV vanc and meropenem DC Solu-Medrol 40 mg b.i.d. 07/19 Hematology: RUE radial vein DVt Secondary hypercoagulable state Elevated D-dimer Lovenox 70mg/kg bid warm compresses RUE elevation GENITOURINARY: Benign prostatic hyperplasia Resume home meds once tolerating METABOLIC: Moderate protein calorie malnutrition, albumin INFECTIOUS DISEASE: Gram-positive and Gram-negative pneumonia Septic shock due to above Blood culture negative IV voriconazole started 07/18, DC micafungin Continue IV vanc and meropenem DIET: NPO, failed bedside swallow, formal st pending DVT prophylax: Lovenox therapeutic GI prophylaxis: Protonix 40 mg IV daily Bowel regimen: Lactulose daily Code status: DNR DNI LINES/DRAINS/ACCESS: IV access: Left upper extremity PICC line 07/12 Drips: Fentanyl off Clifton catheter: 07/12 DISPOSITION: ICU Patient's status discussed with patient's Danita at the bedside in which all questions have been answered Critical care time spent more than 66 minutes, including patient care, chart review, and updating the family. Excluding any procedures Case discussed with Dr. Savage Plan discussed with: Patient, Spouse (at [facility]) My Orders My Orders Orders - MONICA WATTS Procedure Category Date Status Time Amlodipine Tablet PHA 07/20/25 In Process (Norvasc Tablet) 10:00 Blood Culture DYLON 07/20/25 In Process 06:40 Respiratory Culture DYLON 07/20/25 In Process W/ Gs 06:40 Doxycycline PHA 07/20/25 In Process 100mg/100ml 10:00 Hydralazine Injection PHA 07/20/25 In Process (Apresoline Inject 11:15 Dietary Evaluation Review Comments: Nutrition Recommendation: 1) TF Jevity 1.2Cal @ 60ml/hr x 24hr (goal) along with Pro-stat 1 pk daily. Start @ 20ml/hr, increase 10ml/hr Q4H until goal is reached. TF @ goal volume along with Pro-Stat provide 1828 kcal (100% energy needs), 95 gm protein (100% protein needs), 1162 ml free water. 2) Water flush 120ml Q4H if allowed, adjust PRN 3) TPN if NPO >7 days 4) Monitor NPO status, lab values, wt trend, I/O Expected Outcomes/Goals: To meet >75% estimated needs Lab values to improve Fu 2-3 days Date of Service: Jul 20, 2025 Billing Provider: MICHELE SAVAGE MD Common Visit Codes: [id number] CARE 30-74 MIN MONICA WATTS Jul 20, 2025 17:07 MICHELE SAVAGE MD Jul 21, 2025 11:41
[2025-07-20] MEDS: ENOXAPARIN SOD 100 MG/1 ML SYRINGE SC SCH (17:15)
--- NOTE | 2025-07-20 17:17 | DVH ---
RIGHT UPPER EXTREMITY VENOUS DUPLEX REASON FOR EXAMINATION: RULE OUT RIGHT UPPER USG COMPARISON: US US GUIDED VASCULAR ACCESS on DOS: 07/12/25, US BI LAT UPPER DVT on DOS: 07/11/25 TECHNIQUE: Using real-time freeze-frame technique with a high-frequency transducer, multiple longitu dinal and transverse sections were obtained. Simultaneous color flow and spectral Doppler imaging wa s performed. FINDINGS: Deep veins Internal jugular vein: Compressible. No thrombus identified. Expected Doppler flow. Subclavian vein: Expected Doppler flow. Axillary vein: Compressible. No thrombus identified. Expected Doppler flow. Brachial veins: Compressible. No thrombus identified. Expected Doppler flow. Radial vein: Noncompressible. No flow identified. Ulnar vein: Compressible. No thrombus identified. Expected Doppler flow. Superficial veins Cephalic vein: Occluded in the forearm and upper arm. Basilic vein: Compressible. No thrombus identified. Expected Doppler flow. IMPRESSION: Occlusive DVT involvinga radial vein. This is a change since the prior study. Occlusive superficial thrombophlebitis of the cephalic vein in the forearm and upper arm. Acute right upper extremity DVT Critical Result: DVT Findings discussed with MONICA Hobson at 07/20/2025 05:15 PM, and acknowledged receipt and understa nding of the findings. #CRITICAL#
[2025-07-21] VITALS (35 sets, daily range): BP systolic 112–142; BP diastolic 61–73; PULSE 61–97; RESP 15–31; TEMP 97.9–100.8; O2SAT 85–100
[2025-07-21 03:55] LABS: Hematocrit 41.6 % (41.0-53.0); Hemoglobin 13.8 g/dL (13.5-17.5); Mean Corpuscular Hemoglobin 27.4 pg (28.0-32.0); Mean Corpuscular Volume 82.9 fL (80.0-100.0)
[2025-07-21 03:57] LABS: Alkaline Phosphatase 86 U/L (46-116); Anion Gap 8 (5-15); BUN/Creatinine Ratio 41.5 (10.0-20.0); Chloride 105 mmol/L (98-107); Magnesium 2.5 mg/dL (1.6-2.6)
[2025-07-21 03:58] LABS: Bilirubin, Total 1.0 mg/dL (0.2-1.0)
[2025-07-21 04:15] LABS: Alanine Aminotransferase 49 U/L (7-40); Albumin 3.1 g/dL (3.2-4.8); Blood Urea Nitrogen 34 mg/dL (9-23); Calcium 8.5 mg/dL (8.7-10.4); Carbon Dioxide 35 mmol/L (20-31); Glucose 121 mg/dL (74-106); Potassium 3.5 mmol/L (3.5-5.1); Sodium 148 mmol/L (136-145); Total Protein 5.0 g/dL (5.7-8.2)
[2025-07-21 04:37] LABS: Total Cells Counted 100.0 (100)
--- NOTE | 2025-07-21 05:45 | DVH ---
CHEST RADIOGRAPH Indication: f/u Technique: Single frontal view of the chest was obtained Comparison: XY CHEST PORTABLE on DOS: 07/20/25 FINDINGS: Lines and Tubes: NG Lungs: Bibasilar airspace, left greater than right. Pleura: No effusion. No pneumothorax. Cardiomediastinal contours: Unremarkable Bones: No acute osseous abnormality. IMPRESSION: 1. Bibasilar airspace disease which may represent pneumonia. This is increased since prior study.
[2025-07-21] MEDS: FREE WATER NG SCH (10:30)
[2025-07-21] MEDS: MICAFUNGIN SODIUM 100 MG in SODIUM CHL 0.9% 100 ML IV SCH (11:39)
--- NOTE | 2025-07-21 17:29 | DVHPNRES ---
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 Extubated 07/18. 07/18 - Overnight afebrile, normotensive, on 30% FiO2, urine output 950 cc, 2 doses of 20 Lasix provided with the patient, patient made almost 2000 cc of urine during the day shift, subsequently patient tolerated CPAP trial, Niff-35, tidal volume 681, vital capacity 1150, patient was successfully extubated. 07/20 - patient AxOx3, at bedside, on 6L o2. following commands, small BM, RS RUE shows radial DVt. Lovenox started. Starting tube feed, will consider Dubhoff. Na 147 -- hold off lasix, lactulose started. Pulling NG 07/21-patient alert and oriented, overnight 1 episode of NSVT, during which saturation dropped to 80s, PVCs noted on telemetry. Oxygen saturation went up briefly to 8 L then 5 liter/minute, continuing tube feeds. Free water deficit 2 L. started free water 250 mL q.6 hours via NG tube. Losartan decreased to 50 mg daily. patient services clerk consulted for hospice Objective vital signs Vital Sign Date Time Temp Pulse Resp B/P (MAP) Pulse Ox O2 Delivery O2 Flow Rate FiO2 07/21/25 14:00 20 90 Oxymizer 5 N/A 07/21/25 14:00 82 07/21/25 14:00 119/70 (86) 07/21/25 12:00 98.5 98.5 Total Intake and Output 07/20/25 07/20/25 07/21/25 14:59 22:59 06:59 Intake Total 474 ml 197 ml 388 ml Output Total 600 ml 450 ml Balance 474 ml -403 ml -62 ml medications Current Medications Medications Dose Ordered Sig/Cameron Route Start Time Stop Time Status Last Admin Dose Admin Ondansetron HCl 4 mg Q4HP PRN IV 07/10/25 19:15 Nitroglycerin 0.4 mg Q5MINP PRN SL 07/10/25 19:15 Morphine Sulfate 2 mg Q30M PRN IV 07/10/25 19:15 Pantoprazole Sodium 40 mg DAILY IV 07/11/25 10:45 07/21/25 11:35 40 MG Ipratropium [place] 0.5 mg Q6HR NEB 07/11/25 12:00 07/21/25 11:46 0.5 MG Albuterol 2.5 mg Q6HR NEB 07/11/25 18:00 07/21/25 11:46 2.5 MG Sodium Chloride 10 ml QSHIFT@10,22 IV 07/12/25 22:00 07/21/25 10:00 10 ML Acetaminophen 650 mg Q6HP PRN GT 07/13/25 13:30 07/14/25 17:24 650 MG Meropenem 50 ml @ 17 mls/hr Q8HR IV 07/14/25 14:00 07/21/25 13:49 17 MLS/HR Acetylcysteine 200 mg Q6HR NEB 07/14/25 12:30 07/21/25 11:46 200 MG Lactulose 30 ml DAILY PO 07/19/25 10:00 07/20/25 10:37 30 ML Enteral Nutritional Formula 1,000 ml 30ML/HR GT 07/19/25 17:15 07/20/25 15:41 1,000 ML Amlodipine Besylate 10 mg DAILY PO 07/20/25 10:00 07/21/25 11:37 10 MG Doxycycline Hyclate 100 ml @ 50 mls/hr Q12H IV 07/20/25 10:00 07/24/25 11:00 07/21/25 11:36 50 MLS/HR Hydralazine HCl 10 mg Q6HP PRN IV 07/20/25 11:15 Micafungin Sodium 100 mg/Sodium Chloride 100 ml @ 100 mls/hr DAILY IV 07/21/25 10:00 07/21/25 11:39 100 MLS/HR Enoxaparin Sodium 70 mg Q12HR SC 07/20/25 17:15 07/21/25 11:37 70 MG Purified Water 250 ml Q6HR NG 07/21/25 10:30 07/21/25 11:39 250 ML Losartan Potassium 50 mg DAILY PO 07/22/25 10:00 Examination Elderly male patient lying in the bed comfortably, no acute distress, on 6 L oxygen supplementation via mask, status post extubation. Left upper extremity PICC line. Responding to commands General: Well-built, afebrile, palor, mucosae are moist Cardiovascular: Regular S1 and S2. No murmurs, gallops or rubs. No JVD elevation. Trace pedal edema bilaterally Respiratory: 5 L oxygen supplementation via mass, bilateral coarse crackles. Patient has cough and gag reflex Abdomen: Soft, nontender, nondistended, normoactive bowel sounds, no rebound tenderness, no organomegaly, no masses Genitourinary: Clifton draining MSK/skin: Mobilizes 4 limbs. Skin is dry and warm. Right arm is swollen. Neurological: Pupils are isocoric and reactive. laboratory and microbiology Laboratory Tests 07/21/25 03:00 Test 07/21/25 03:00 Range/Units Serum Glucose 121 H 74-106 mg/dL Microbiology Date/Time Source Procedure Growth Status 07/20/25 15:52 Sputum Gram Stain Pending Resulted 07/20/25 15:52 Sputum Respiratory Culture - Preliminary Resulted 07/20/25 13:07 Blood Blood Culture - Preliminary NO GROWTH AFTER 24 HOURS OF INCUBATION. Resulted 07/13/25 22:05 Trachea Gram Stain - Final Resulted 07/13/25 22:05 Trachea Respiratory Culture - Preliminary Resulted Labs and/or images reviewed: Labs reviewed by me, Image(s) reviewed by me Problem List/Assessment/Plan Problem List/Assessment/Plan NEURO: Acute metabolic encephalopathy secondary to septic shock History of dementia ICU acquired weakness Patient is following commands CARDIOVASCULAR: Septic shock likely Gram-positive and Gram-negative pneumonia Hypertension ? CHF with preserved ejection fraction -IV Lasix 20 mg 2 doses given today 07/18 -hold off lasix given na 147, bicarb 35 -losartan 50 mg daily PULMONARY: COPD exacerbation status post intubation and extubation 07/18 Acute on chronic hypercapnic hypoxic respiratory failure Acute Gram-positive Gram-negative pneumonia Ruled out pulmonary embolism WBC count up trending to 29 to 32, trending down Respiratory culture showing laly, continue micafungin CT angio negative admission DC IV voriconazole Cont micafungin,and meropenem, doxycycline for 5 days from 07/20 discontinued IV vancomycin 07/21 DC Solu-Medrol 40 mg b.i.d. 07/19 chest percussions Hematology: RUE radial vein DVt Secondary hypercoagulable state Elevated D-dimer Lovenox 70mg/kg bid warm compresses RUE elevation GENITOURINARY: Benign prostatic hyperplasia Resume home meds once tolerating METABOLIC: Moderate protein calorie malnutrition, albumin Metabolic alkalosis, hypernatremia Free water deficit 2.1 L 07/21, free water flushes 250 mL via NG q.6 hours INFECTIOUS DISEASE: Gram-positive and Gram-negative pneumonia Septic shock due to above Blood culture negative IV voriconazole started 07/18, DC micafungin Continue IV vanc and meropenem DIET: NPO, failed bedside swallow, formal st also failed DVT prophylax: Lovenox therapeutic GI prophylaxis: Protonix 40 mg IV daily Bowel regimen: Lactulose daily Code status: DNR DNI LINES/DRAINS/ACCESS: IV access: Left upper extremity PICC line 07/12 Drips: Fentanyl off Clifton catheter: 07/12 DISPOSITION: ICU patient services clerk consultation for hospice Patient's status discussed with patient's Danita at the bedside in which all questions have been answered Critical care time spent more than 59 minutes, including patient care, chart review, and updating the family. Excluding any procedures Case discussed with Dr. Savage Plan discussed with: Patient, Spouse (at bedside) My Orders My Orders Orders - MONICA WATTS Procedure Category Date Status Time Free Water PHA 07/21/25 In Process 10:30 Dietary Evaluation Review Comments: Nutrition Recommendation: 1) TF Jevity 1.2Cal @ 60ml/hr x 24hr (goal) along with Pro-stat 1 pk daily. Start @ 20ml/hr, increase 10ml/hr Q4H until goal is reached. TF @ goal volume along with Pro-Stat provide 1828 kcal (100% energy needs), 95 gm protein (100% protein needs), 1162 ml free water. 2) Water flush 120ml Q4H if allowed, adjust PRN 3) TPN if NPO >7 days 4) Monitor NPO status, lab values, wt trend, I/O Expected Outcomes/Goals: To meet >75% estimated needs Lab values to improve Fu 2-3 days Date of Service: Jul 21, 2025 Billing Provider: MICHELE SAVAGE MD Common Visit Codes: [id number] CARE 30-74 MIN MONICA WATTS Jul 21, 2025 17:29 MICHELE SAVAGE MD Jul 25, 2025 15:41
[2025-07-21 18:32] LABS: Base Excess 10.8 mmol/L (-2.0-3.0)
--- NOTE | 2025-07-21 18:51 | DVH ---
EXAM: XY CHEST PORTABLE TECHNIQUE: Single frontal chest radiograph CLINICAL HISTORY: PT DESATING TO 84% COMPARISON: XY CHEST XRAY 1 VIEW on DOS: 07/21/25, XY CHEST PORTABLE on DOS: 07/20/25, XY CHEST XRAY 1 VIEW on DOS: 07/19/25 Findings/Impression: Frontal chest radiograph demonstrates no acute osseous or superficial soft tissue abnormalities. Enteric tube is descending down into the stomach. The trachea is midline. The cardiac silhouette and mediastinum are within normal limits. Improved left basilar and similar right infrahilar airspace disease. No pneumothorax or pleural effusions.
[2025-07-21 19:44] LABS: Potassium 3.9 mmol/L (3.5-5.1)
[2025-07-21 19:45] LABS: Anion Gap 7 (5-15)
[2025-07-21 19:46] LABS: Calcium 8.8 mg/dL (8.7-10.4)
[2025-07-21 19:51] LABS: BUN/Creatinine Ratio 35.6 (10.0-20.0)
[2025-07-21 19:55] LABS: Blood Urea Nitrogen 31 mg/dL (9-23); Carbon Dioxide 34 mmol/L (20-31); Chloride 108 mmol/L (98-107); Glucose 107 mg/dL (74-106); Sodium 149 mmol/L (136-145)
[2025-07-21] MEDS: POTASSIUM CHL 20MEQ/100ML 100 ML IV SCH (20:24)
[2025-07-22] VITALS (33 sets, daily range): BP systolic 102–159; BP diastolic 61–86; PULSE 67–135; RESP 15–96; TEMP 98.1–100.6; O2SAT 5–100
[2025-07-22] MEDS: FREE WATER NG SCH
[2025-07-22 03:48] LABS: Hematocrit 40.3 % (41.0-53.0); Hemoglobin 13.5 g/dL (13.5-17.5); Mean Corpuscular Hemoglobin 27.9 pg (28.0-32.0); Mean Corpuscular Volume 83.2 fL (80.0-100.0)
[2025-07-22 03:50] LABS: Alkaline Phosphatase 88 U/L (46-116); Anion Gap 5 (5-15); BUN/Creatinine Ratio 40.0 (10.0-20.0); Magnesium 2.6 mg/dL (1.6-2.6); Potassium 4.0 mmol/L (3.5-5.1)
[2025-07-22 03:58] LABS: Alanine Aminotransferase 42 U/L (7-40); Albumin 3.1 g/dL (3.2-4.8); Bilirubin, Total 1.5 mg/dL (0.2-1.0); Blood Urea Nitrogen 34 mg/dL (9-23); Calcium 8.5 mg/dL (8.7-10.4); Carbon Dioxide 34 mmol/L (20-31); Chloride 109 mmol/L (98-107); Glucose 115 mg/dL (74-106); Sodium 148 mmol/L (136-145); Total Protein 5.1 g/dL (5.7-8.2)
[2025-07-22 05:04] LABS: Total Cells Counted 100.0 (100)
[2025-07-22] MEDS: LOSARTAN POTASSIUM 50 MG TAB PO SCH (09:01)
[2025-07-22 09:36] LABS: Base Excess 6.6 mmol/L (-2.0-3.0)
[2025-07-22] MEDS ORDERED: VANCOMYCIN PER PHARMACY 0 MG IV SCH (10:45)
--- NOTE | 2025-07-22 11:09 | DVH ---
EXAM: XY CHEST XRAY 1 VIEW Indication: f/u Technique: Single frontal view of the chest was obtained Comparison: XY CHEST PORTABLE on DOS: 07/21/25, XY CHEST XRAY 1 VIEW on DOS: 07/21/25, XY CHEST PORTABL E on DOS: 07/20/25, XY CHEST XRAY 1 VIEW on DOS: 07/19/25, XY CHEST PORTABLE on DOS: 07/18/25 FINDINGS: Lines and Tubes: Enteric tube tip projects over the expected region of the stomach. Left PICC tip pro jects over the superior vena cava. Lungs: Small left pleural effusion. Pulmonary edema. No pneumothorax. Cardiomediastinal contours: Unremarkable. Atherosclerotic vascular calcifications of the thoracic ao rta are noted. Bones: No acute osseous abnormality. IMPRESSION: Small left pleural effusion. Pulmonary edema.
[2025-07-22] MEDS: methylPREDNISolone SOD SUCC 40 MG/ML VL IV ONE (12:08)
[2025-07-22] MEDS: VANCOMYCIN 500mg/100mL 100 ML IV SCH (12:09)
[2025-07-22 12:57] LABS: Base Excess 4.3 mmol/L (-2.0-3.0)
--- NOTE | 2025-07-22 14:42 | DVHPNRES ---
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 Extubated 07/18. 07/18 - Overnight afebrile, normotensive, on 30% FiO2, urine output 950 cc, 2 doses of 20 Lasix provided with the patient, patient made almost 2000 cc of urine during the day shift, subsequently patient tolerated CPAP trial, Niff-35, tidal volume 681, vital capacity 1150, patient was successfully extubated. 07/20 - patient AxOx3, at bedside, on 6L o2. following commands, small BM, RS RUE shows radial DVt. Lovenox started. Starting tube feed, will consider Dubhoff. Na 147 -- hold off lasix, lactulose started. Pulling NG 07/21-patient alert and oriented, overnight 1 episode of NSVT, during which saturation dropped to 80s, PVCs noted on telemetry. Oxygen saturation went up briefly to 8 L then 5 liter/minute, continuing tube feeds. Free water deficit 2 L. started free water 250 mL q.6 hours via NG tube. Losartan decreased to 50 mg daily. director of volunteer services consulted for hospice 07/22 - alert, following commands, A/Ox1 today to name only, ON HFNC, low grade fevers, u/o 1100/day. Passed bedside swallow with pureed, Formal ST pending Objective vital signs Vital Sign Date Time Temp Pulse Resp B/P (MAP) Pulse Ox O2 Delivery O2 Flow Rate FiO2 07/22/25 13:09 94 24 98 50.0 100 07/22/25 12:00 100.6 131/70 (90) 100.6 07/22/25 12:00 Hi-Flow Heated NC+ Total Intake and Output 07/21/25 07/21/25 07/22/25 14:59 22:59 06:59 Intake Total 268 ml 494 ml 200 ml Output Total 650 ml 450 ml Balance 268 ml -156 ml -250 ml medications Current Medications Medications Dose Ordered Sig/Cameron Route Start Time Stop Time Status Last Admin Dose Admin Ondansetron HCl 4 mg Q4HP PRN IV 07/10/25 19:15 Nitroglycerin 0.4 mg Q5MINP PRN SL 07/10/25 19:15 Morphine Sulfate 2 mg Q30M PRN IV 07/10/25 19:15 Pantoprazole Sodium 40 mg DAILY IV 07/11/25 10:45 07/22/25 09:01 40 MG Ipratropium [place] 0.5 mg Q6HR NEB 07/11/25 12:00 07/22/25 11:26 0.5 MG Albuterol 2.5 mg Q6HR NEB 07/11/25 18:00 07/22/25 11:26 2.5 MG Sodium Chloride 10 ml QSHIFT@10,22 IV 07/12/25 22:00 07/22/25 09:02 10 ML Acetaminophen 650 mg Q6HP PRN GT 07/13/25 13:30 07/21/25 22:11 650 MG Meropenem 50 ml @ 17 mls/hr Q8HR IV 07/14/25 14:00 07/22/25 14:08 17 MLS/HR Acetylcysteine 200 mg Q6HR NEB 07/14/25 12:30 07/22/25 11:26 200 MG Lactulose 30 ml DAILY PO 07/19/25 10:00 07/20/25 10:37 30 ML Enteral Nutritional Formula 1,000 ml 30ML/HR GT 07/19/25 17:15 07/20/25 15:41 1,000 ML Amlodipine Besylate 10 mg DAILY PO 07/20/25 10:00 07/22/25 09:00 10 MG Doxycycline Hyclate 100 ml @ 50 mls/hr Q12H IV 07/20/25 10:00 07/24/25 11:00 07/22/25 10:22 50 MLS/HR Hydralazine HCl 10 mg Q6HP PRN IV 07/20/25 11:15 Micafungin Sodium 100 mg/Sodium Chloride 100 ml @ 100 mls/hr DAILY IV 07/21/25 10:00 07/22/25 09:00 100 MLS/HR Enoxaparin Sodium 70 mg Q12HR SC 07/20/25 17:15 07/22/25 09:01 70 MG Losartan Potassium 50 mg DAILY PO 07/22/25 10:00 07/22/25 09:01 50 MG Purified Water 100 ml Q6HR NG 07/22/25 00:00 07/22/25 11:31 100 ML Methylprednisolone Sodium Succinate 40 mg BID IV 07/22/25 22:00 Vancomycin HCl 0 ml @ 0 mls/hr UD IV 07/22/25 10:45 Vancomycin HCl 100 ml @ 200 mls/hr Q12H IV 07/22/25 12:00 07/22/25 12:09 200 MLS/HR Examination Elderly male patient lying in the bed comfortably, no acute distress, on 6 L oxygen supplementation via mask, status post extubation. Left upper extremity PICC line. Responding to commands General: Well-built, afebrile, palor, mucosae are moist Cardiovascular: Regular S1 and S2. No murmurs, gallops or rubs. No JVD elevation. Trace pedal edema bilaterally Respiratory: HFNC 50% FIO2 oxygen supplementation, bilateral coarse crackles. Patient has cough and gag reflex Abdomen: Soft, nontender, nondistended, normoactive bowel sounds, no rebound tenderness, no organomegaly, no masses Genitourinary: Clifton draining MSK/skin: Mobilizes 4 limbs. Skin is dry and warm. Right arm is swollen. Neurological: Pupils are isocoric and reactive. laboratory and microbiology Laboratory Tests 07/22/25 02:57 Test 07/22/25 02:57 Range/Units Serum Glucose 115 H 74-106 mg/dL Microbiology Date/Time Source Procedure Growth Status 07/20/25 15:52 Sputum Gram Stain - Final Resulted 07/20/25 15:52 Respiratory Culture - Preliminary Serratia marcescens Resulted 07/20/25 13:07 Blood Blood Culture - Preliminary NO GROWTH AFTER 48 HOURS OF INCUBATION. Resulted 07/13/25 22:05 Trachea Gram Stain - Final Resulted 07/13/25 22:05 Trachea Respiratory Culture - Preliminary Resulted Labs and/or images reviewed: Labs reviewed by me, Image(s) reviewed by me Problem List/Assessment/Plan Problem List/Assessment/Plan NEURO: Acute metabolic encephalopathy secondary to septic shock History of dementia ICU acquired weakness Patient is following commands CARDIOVASCULAR: Septic shock likely Gram-positive and Gram-negative pneumonia Hypertension ? CHF with preserved ejection fraction -IV Lasix 20 mg 2 doses given today 07/18 -hold off lasix given na 147, bicarb 35 -losartan 50 mg daily PULMONARY: COPD exacerbation status post intubation and extubation 07/18 Acute on chronic hypercapnic hypoxic respiratory failure Acute Gram-positive Gram-negative pneumonia Ruled out pulmonary embolism WBC count up trending Respiratory culture showing laly, continue micafungin CT angio negative admission DC IV voriconazole Cont micafungin,and meropenem, doxycycline for 5 days from 07/20 discontinued IV vancomycin 07/21 DC Solu-Medrol 40 mg b.i.d. 07/19 chest percussions Re Added Vanc 07/22 Added solumdrol 40iv bid 07/22 after being off for 2 days Maintain sats 88-92% Hematology: RUE radial vein DVt Secondary hypercoagulable state Elevated D-dimer Lovenox 70mg/kg bid warm compresses RUE elevation GENITOURINARY: Benign prostatic hyperplasia Resume home meds once tolerating METABOLIC: Moderate protein calorie malnutrition, albumin Metabolic alkalosis, hypernatremia Free water deficit 2.1 L 07/21, free water flushes 100 mL via NG q.6 hours INFECTIOUS DISEASE: Gram-positive and Gram-negative pneumonia Septic shock due to above Blood culture negative IV voriconazole started 07/18, DC micafungin Continue IV vanc and meropenem DIET: passed puree bedside, Formal ST pending DVT prophylax: Lovenox therapeutic GI prophylaxis: Protonix 40 mg IV daily Bowel regimen: Lactulose daily Code status: DNR DNI LINES/DRAINS/ACCESS: IV access: Left upper extremity PICC line 07/12 Drips: Fentanyl off Clifton catheter: 07/12 DISPOSITION: ICU director of volunteer services consultation for hospice Patient's status discussed with patient's Danita at the bedside in which all questions have been answered Critical care time spent more than 59 minutes, including patient care, chart review, and updating the family. Excluding any procedures Case discussed with Dr. Draper Plan discussed with: Patient, Spouse My Orders My Orders Orders - MONICA WATTS RESIDENT Procedure Category Date Status Time Chest Portable XY 07/21/25 Resulted 18:13 Abg W/ Co-Ox RT 07/21/25 Logged 18:00 Oxygen By High-Flow RT 07/21/25 Transmitted 18:18 Free Water PHA 07/22/25 In Process 00:00 Communication Order ORDERS 07/21/25 Transmitted 19:47 Abg W/ Co-Ox RT 07/22/25 Logged 08:44 Chest Xray 1 View XY 07/22/25 Resulted 08:45 Abg W/ Co-Ox RT 07/22/25 Logged 12:00 Methylprednisolone PHA 07/22/25 In Process Sod Succ (Solu Medrol 22:00 Vancomycin Per PHA 07/22/25 In Process Pharmacy 10:45 * Swallow Request ST 07/22/25 Transmitted 11:35 Vancomycin 500mg/100ml PHA 07/22/25 In Process 12:00 Complete Blood Count LAB 07/23/25 Verified 04:00 Creatinine LAB 07/23/25 Verified 04:00 Vancomycin,Trough LAB 07/23/25 Verified 23:00 Vancomycin Per JORGE 07/22/25 In Process Pharmacy Protoc 12:00 Dietary Evaluation Review Comments: Nutrition Recommendation: 1) TF Jevity 1.2Cal @ 60ml/hr x 24hr (goal) along with Pro-stat 1 pk daily. Start @ 20ml/hr, increase 10ml/hr Q4H until goal is reached. TF @ goal volume along with Pro-Stat provide 1828 kcal (100% energy needs), 95 gm protein (100% protein needs), 1162 ml free water. 2) Water flush 120ml Q4H if allowed, adjust PRN 3) TPN if NPO >7 days 4) Monitor NPO status, lab values, wt trend, I/O Expected Outcomes/Goals: To meet >75% estimated needs Lab values to improve Fu 2-3 days MONICA WATTS RESIDENT Jul 22, 2025 14:42
[2025-07-22] MEDS: LORazepam 2MG/ML-1ML VIAL IV PRN (18:40)
[2025-07-22] MEDS: LORazepam 2MG/ML-1ML VIAL ONE (18:46)
[2025-07-22] MEDS ORDERED: GLYCOPYRROLATE 0.2 MG/ML 1ML VIAL IV PRN (19:30)
[2025-07-22] MEDS: MORPHINE SULFATE INJ 2 MG/ml SYRG IV PRN ×2 (19:48→20:52)
[2025-07-22] MEDS: methylPREDNISolone SOD SUCC 40 MG/ML VL IV SCH (23:00)
[2025-07-23] VITALS (26 sets, daily range): BP systolic 90–131; BP diastolic 54–83; PULSE 80–123; RESP 14–38; TEMP 37.2; O2SAT 5–93
--- NOTE | 2025-07-23 09:48 | DVHPN2 ---
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 Extubated 07/18. 07/18 - Overnight afebrile, normotensive, on 30% FiO2, urine output 950 cc, 2 doses of 20 Lasix provided with the patient, patient made almost 2000 cc of urine during the day shift, subsequently patient tolerated CPAP trial, Niff-35, tidal volume 681, vital capacity 1150, patient was successfully extubated. 07/20 - patient AxOx3, at bedside, on 6L o2. following commands, small BM, RS RUE shows radial DVt. Lovenox started. Starting tube feed, will consider Dubhoff. Na 147 -- hold off lasix, lactulose started. Pulling NG 07/21-patient alert and oriented, overnight 1 episode of NSVT, during which saturation dropped to 80s, PVCs noted on telemetry. Oxygen saturation went up briefly to 8 L then 5 liter/minute, continuing tube feeds. Free water deficit 2 L. started free water 250 mL q.6 hours via NG tube. Losartan decreased to 50 mg daily. supervisor volunteer services consulted for hospice 07/22 - alert, following commands, A/Ox1 today to name only, ON HFNC, low grade fevers, u/o 1100/day. Passed bedside swallow with pureed, Formal ST pending 07/23: Family's waiting for hospice, currently on comfort measures and stopping all meds except for Ativan and morphine for pain and respiratory distress. We will continue with family's wishes. Ambulance form signed. Reviewed: Care Plan, H&P, Labs, Medications, Previous Orders, Radiology Changes from previous H/P or p: No Changes Objective Vitals Vital Signs Date Time Temp Pulse Resp B/P (MAP) Pulse Ox O2 Delivery O2 Flow Rate FiO2 07/23/25 08:00 88 07/23/25 08:00 21 93 Nasal Cannula* 6 44 07/23/25 07:00 90/61 (71) 07/23/25 04:00 98.9 98.9 Intake/Output Intake and Output 07/23/25 07:00 Intake Total 600 ml Output Total 725 ml Balance -125 ml Intake Oral 200 ml IV Total 400 ml Output Urine Total 725 ml Exam General: Well-built, afebrile, palor, mucosae are moist Cardiovascular: Regular S1 and S2. No murmurs, gallops or rubs. No JVD elevation. Trace pedal edema bilaterally Respiratory: HFNC 50% FIO2 oxygen supplementation, bilateral coarse crackles. Patient has cough and gag reflex Abdomen: Soft, nontender, nondistended, normoactive bowel sounds, no rebound tenderness, no organomegaly, no masses Genitourinary: Ann draining MSK/skin: Mobilizes 4 limbs. Skin is dry and warm. Right arm is swollen. Neurological: Pupils are isocoric and reactive. General Appearance: Other (Intubated, on vent, unable to exam) HEENT: Atraumatic Neck: Supple Lungs: Clear to auscultation, Other (Intubated) Cardiovascular: Regular rate, Normal S1, Normal S2, No murmurs, Gallops, Rubs Abdomen: Normal bowel sounds, Soft, No tenderness Neuro: Cranial nerves 3-12 NL Psych/Mental Status: Mental status NL Medications Current Medications Medications Dose Ordered Sig/Cameron Route Start Time Stop Time Status Last Admin Dose Admin Morphine Sulfate 2 mg Q30M PRN IV 07/10/25 19:15 Hydralazine HCl 10 mg Q6HP PRN IV 07/20/25 11:15 Cancel Lorazepam 1 mg Q2HP PRN IV 07/22/25 18:45 07/23/25 06:23 1 MG Glycopyrrolate 0.2 mg Q4HPRN PRN IV 07/22/25 19:30 Cancel Morphine Sulfate 2 mg Q1HR PRN IV 07/22/25 20:15 07/23/25 06:22 2 MG Laboratory Results Laboratory Tests 07/22/25 02:57 Urinalysis Test 07/20/25 15:00 Urine Color Yellow (Yellow) Urine Clarity Turbid (Clear) H Urine pH 6.0 (5.0-9.0) Urine Specific [place] 1.037 (1.001-1.035) Urine Protein 1+ (Negative) H Urine Ketones 1+ (Negative) H Urine Blood 3+ /uL (Negative) H Urine Nitrite Negative (Negative) Urine Bilirubin Negative (Negative) Urine Urobilinogen Normal mg/dL (Negative) Urine Leukocyte Esterase Negative /uL (Negative) Urine RBC 150 /hpf (0 - 3) Urine Microscopic WBC < 1 /HPF (0-3) Urine Squamous Epithelial Cells Few /hpf (<5) Urine Uric Acid Crystals Few /hpf (None Seen) Urine Amorphous Crystals Few /hpf (None Seen) Urine Bacteria Few /hpf (None Seen) H Urine Mucus Few (None Seen) Urine Glucose Normal mg/dL (Normal) Blood Gas Results Test 07/22/25 12:52 Arterial Blood pH 7.525 (7.350-7.450) FiO2 % 100.0 Microbiology Microbiology Date/Time Source Procedure Growth Status 07/20/25 15:52 Sputum Gram Stain - Final Resulted 07/20/25 15:52 Respiratory Culture - Preliminary Serratia marcescens Resulted 07/20/25 13:07 Blood Blood Culture - Preliminary NO GROWTH AFTER 48 HOURS OF INCUBATION. Resulted 07/13/25 22:05 Trachea Gram Stain - Final Resulted 07/13/25 22:05 Trachea Respiratory Culture - Preliminary Resulted Labs and/or images reviewed: Labs reviewed by me, Image(s) reviewed by me Assessment/Plan Assessment/Plan NEURO: Acute metabolic encephalopathy secondary to septic shock History of dementia ICU acquired weakness Patient is following commands CARDIOVASCULAR: Septic shock likely Gram-positive and Gram-negative pneumonia Hypertension ? CHF with preserved ejection fraction -IV Lasix 20 mg 2 doses given today 07/18 -hold off lasix given na 147, bicarb 35 -losartan 50 mg daily PULMONARY: COPD exacerbation status post intubation and extubation 07/18 Acute on chronic hypercapnic hypoxic respiratory failure Acute Gram-positive Gram-negative pneumonia Ruled out pulmonary embolism WBC count up trending Respiratory culture showing laly, continue micafungin CT angio negative admission DC IV voriconazole Cont micafungin,and meropenem, doxycycline for 5 days from 07/20 discontinued IV vancomycin 07/21 DC Solu-Medrol 40 mg b.i.d. 07/19 chest percussions Re Added Vanc 07/22 Added solumdrol 40iv bid 07/22 after being off for 2 days Maintain sats 88-92% Hematology: RUE radial vein DVt Secondary hypercoagulable state Elevated D-dimer Lovenox 70mg/kg bid warm compresses RUE elevation GENITOURINARY: Benign prostatic hyperplasia Resume home meds once tolerating METABOLIC: Moderate protein calorie malnutrition, albumin Metabolic alkalosis, hypernatremia Free water deficit 2.1 L 8/28, free water flushes 100 mL via NG q.6 hours INFECTIOUS DISEASE: Gram-positive and Gram-negative pneumonia Septic shock due to above Blood culture negative IV voriconazole started 07/18, DC micafungin Continue IV vanc and meropenem DIET: passed puree bedside, Formal ST pending DVT prophylax: Lovenox therapeutic GI prophylaxis: Protonix 40 mg IV daily Bowel regimen: Lactulose daily Code status: DNR DNI LINES/DRAINS/ACCESS: IV access: Left upper extremity PICC line 07/12 Drips: Fentanyl off Ann catheter: 07/12 DISPOSITION: ICU Plan discussed with: Other My Orders Orders - DUKE MARRERO MD Procedure Category Date Status Time Transfer Orders XFER 07/23/25 Transmitted 09:29 Date of Service: Jul 23, 2025 Billing Provider: DUKE MARRERO MD Common Visit Codes: NOT BILLABLE DUKE MARRERO MD Jul 23, 2025 09:48
--- NOTE | 2025-07-23 13:53 | DVHDS2 ---
Discharge Summary Date of Admission Jul 10, 2025 at 19:14 Date of Discharge: Jul 15, 2025 Labs/Diagnostic Data: Laboratory Results Test 07/22/25 12:52 07/22/25 09:32 07/22/25 02:57 07/20/25 15:22 Blood Gas Specimen Type Arterial Blood Gas Sample Site Right radial Blood Gas Patient Temperature 37.0 Arterial Blood Date Drawn [id number] Arterial Blood pH 7.525 (7.350-7.450) Arterial Blood Partial Pressure CO2 33.0 mmHg (35.0-48.0) Arterial Blood Partial Pressure O2 61.4 mmHg (83.0-108.0) Arterial Blood HCO3 26.6 mmol/L (21.0-28.0) Arterial Blood Oxygen Saturation 91.3 % (94.0-98.0) Arterial Blood Base Excess 4.3 mmol/L (-2.0-3.0) Arterial Blood Oxyhemoglobin 90.7 % (94.0-98.0) Arterial Blood Carboxyhemoglobin 0.3 % (0.5-1.5) Arterial Blood Methemoglobin 0.4 % (0.0-1.5) Kurt Test Yes Blood Gas Total Hemoglobin 14.30 g/dL (13.5-17.5) Blood Gas Liter Flow 50.00 Blood Gas Modality High flow FiO2 % 100.0 Blood Gas Critical Value Read Back yes Blood Gas Notified Whom Blood Gas Notified Time [id number] Blood Gas Notified By coater brake linings carlos White Blood Count 30.5 10^3/uL (4.4-10.8) Red Blood Count 4.85 10^6/uL (4.5-5.90) Hemoglobin 13.5 g/dL (13.5-17.5) Hematocrit 40.3 % (41.0-53.0) Mean Corpuscular Volume 83.2 fL (80.0-100.0) Mean Corpuscular Hemoglobin 27.9 pg (28.0-32.0) Mean Corpuscular Hemoglobin Concent 33.6 g/dL (32.0-36.0) Red Cell Distribution Width 14.7 % (11.8-14.3) Platelet Count 215 10^3/uL (140-450) Mean Platelet Volume 9.5 fL (6.9-10.8) Neutrophils (%) (Auto) % (37.0-80.0) Lymphocytes (%) (Auto) % (10.0-50.0) Monocytes (%) (Auto) % (0.0-12.0) Basophils (%) (Auto) % (0.0-2.0) Neutrophils # (Auto) 10 ^3/uL (1.6-8.6) Lymphocytes # (Auto) 10 ^3/uL (0.4-5.4) Monocytes # (Auto) 10 ^3/uL (0-1.3) Differential Total Cells Counted 100.0 (100) Neutrophils % (Manual) 87 (37.0-80.0) Band Neutrophils % (Manual) 0 Lymphocytes % (Manual) 9 (10.0-50.0) Monocytes % (Manual) 4 (0-12) Eosinophils % (Manual) 0 (0-7) Basophils % (Manual) 0 (0.0-2.0) Metamyelocytes % (manual) 0 Myelocytes % (Manual) 0 Promyelocytes % (Manual) 0 Blast Cells % (Manual) 0 Reactive Lymphocytes 0 Platelet Estimate Adequate Sodium Level 148 mmol/L (136-145) Potassium Level 4.0 mmol/L (3.5-5.1) Chloride Level 109 mmol/L (98-107) Carbon Dioxide Level 34 mmol/L (20-31) Anion Gap 5 (5-15) Blood Urea Nitrogen 34 mg/dL (9-23) Creatinine 0.85 mg/dL (0.700-1.30) Glomerular Filtration Rate Calc 91 mL/min (>90) BUN/Creatinine Ratio 40.0 (10.0-20.0) Serum Glucose 115 mg/dL (74-106) Calcium Level 8.5 mg/dL (8.7-10.4) Magnesium Level 2.6 mg/dL (1.6-2.6) Total Bilirubin 1.5 mg/dL (0.2-1.0) Aspartate Amino Transferase (AST) 18 U/L (13-40) Alanine Aminotransferase (ALT) 42 U/L (7-40) Alkaline Phosphatase 88 U/L (46-116) C-Reactive Protein High Sensitivity 2.24 mg/dL (<1.0) B-Type Natriuretic Peptide 53.58 pg/mL (0-100) Total Protein 5.1 g/dL (5.7-8.2) Albumin 3.1 g/dL (3.2-4.8) POC Glucose 118 mg/dl (70-106) Test 07/20/25 15:00 07/20/25 05:00 07/20/25 03:47 07/18/25 07:22 Urine Color Yellow (Yellow) Urine Clarity Turbid (Clear) Urine pH 6.0 (5.0-9.0) Urine Specific [place] 1.037 (1.001-1.035) Urine Protein 1+ (Negative) Urine Ketones 1+ (Negative) Urine Blood 3+ /uL (Negative) Urine Nitrite Negative (Negative) Urine Bilirubin Negative (Negative) Urine Urobilinogen Normal mg/dL (Negative) Urine Leukocyte Esterase Negative /uL (Negative) Urine RBC 150 /hpf (0 - 3) Urine Microscopic WBC < 1 /HPF (0-3) Urine Squamous Epithelial Cells Few /hpf (<5) Urine Uric Acid Crystals Few /hpf (None Seen) Urine Amorphous Crystals Few /hpf (None Seen) Urine Bacteria Few /hpf (None Seen) Urine Mucus Few (None Seen) Urine Glucose Normal mg/dL (Normal) Vancomycin Level Trough 20.1 ug/mL (5-10) Erythrocyte Sedimentation Rate 5 mm/hr (0-20) Blood Gas Set Respiration Rate 20.0 Blood Gas Tidal Volume 550.0 Blood Gas PEEP or CPAP 5.0 Test 07/18/25 03:20 07/16/25 03:21 07/14/25 02:46 07/12/25 03:08 Large Platelets Few Eosinophils (%) (Auto) 0.0 % (0.0-7.0) Eosinophils # (Auto) 0 10 ^3/uL (0-0.8) Basophils # (Auto) 0 10 ^3/uL (0-0.2) Nucleated Red Blood Cells 0.0 % Random Vancomycin Level 19.7 ug/mL (5-10) Troponin I High Sensitivity 22 ng/L (</=54) Free Thyroxine (T4) Calculated 1.16 ng/dL (0.89-1.76) Total Triiodothyronine (TT3) 0.87 ng/mL (0.60-1.81) Test 07/11/25 14:58 07/11/25 12:25 07/11/25 11:26 07/11/25 03:06 Influenza Type A Antigen Negative (Negative) Influenza Type B Antigen Negative (Negative) SARS-CoV-2 Antigen (Rapid) Negative (NEGATIVE) Vitamin B12 Level 1350 pg/mL (211-911) Blood Gas Pressure Support 8 Hemoglobin A1c 5.7 % A1C (<5.7) Thyroid Stimulating Hormone (TSH) 0.20 uIU/mL (0.55-4.78) Test 07/10/25 23:15 07/10/25 19:57 07/10/25 10:39 07/10/25 10:04 Phosphorus Level 4.2 mg/dL (2.4-5.1) D-Dimer, Quantitative 6.47 mg/L FEU (0.0-0.49) Blood Gas EPAP 5 Blood Gas IPAP 12 Urine Opiates Screen Neg (NEGATIVE) Urine Fentanyl Screen Neg (NEGATIVE) Urine Barbiturates Screen Neg (NEGATIVE) Urine Phencyclidine Screen Neg (NEGATIVE) Urine Amphetamines Screen Neg (NEGATIVE) Urine Benzodiazepines Screen Neg (NEGATIVE) Urine Cocaine Screen Neg (NEGATIVE) Urine Cannabinoids Screen Neg (NEGATIVE) Test 07/10/25 10:00 Prothrombin Time 10.7 sec (9.3-11.8) Prothrombin Time INR 1.01 (0.9-1.15) Activated Partial Thromboplast Time 21.7 SEC (24.5-34.5) Lactic Acid Level 1.9 mmol/L (0.4-2.0) Other Laboratory Tests 07/22/25 02:57 Brief Hx & Hospital Course: This is a 75-year-old male patient with COPD on 3 L home oxygen, hypertension, BPH, early onset dementia hospital course has been prolonged as patient could intubated secondary to COPD exacerbation, 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 Extubated 07/18. 07/23: Last few days patient has been declining, family meeting with patient's family, at bedside, are agreeing to go home with home hospice. Nasal cannula removed, saturating 70% on room air, hospice discharge at home today. Diagnosis: Acute on chronic hypercapnic hypoxic respiratory failure, requiring mechanical ventilation COPD exacerbation status post intubation and extubation 07/18 Acute Gram-positive Gram-negative pneumonia Acute metabolic encephalopathy secondary to septic shock Septic shock likely Gram-positive and Gram-negative pneumonia Hypernatremia History of dementia ICU acquired weakness Hypertension ? CHF with preserved ejection fraction Ruled out pulmonary embolism RUE radial vein DVt Secondary hypercoagulable state Benign prostatic hyperplasia Moderate protein calorie malnutrition, albumin Metabolic alkalosis, hypernatremia Blood culture negative PLAN , discharge patient to hospice Condition at Discharge: Poor Final Diagnosis/Problems List Acute on chronic hypercapnic hypoxic respiratory failure, requiring mechanical ventilation COPD exacerbation status post intubation and extubation 07/18 Acute Gram-positive Gram-negative pneumonia Acute metabolic encephalopathy secondary to septic shock Septic shock likely Gram-positive and Gram-negative pneumonia Hypernatremia History of dementia ICU acquired weakness Hypertension ? CHF with preserved ejection fraction Ruled out pulmonary embolism RUE radial vein DVt Secondary hypercoagulable state Benign prostatic hyperplasia Moderate protein calorie malnutrition, albumin Metabolic alkalosis, hypernatremia Blood culture negative Discharge Disposition: Hospice - Home Discharge Instruct/Medications Diet: See Comment Diet comment: NPO,/defer to hospice agency Activity: No Restrictions, As Tolerated Follow Up/Referral: 0 see below Medications: See below Discharge Statement: "Patient was advised to return to the ER or call 911 if any headaches, dizziness, shortness of breath, chest pain, abdominal pain, bleeding, fevers, or worsening of medical condition. Patient was counseled about treatment plan, medications, possible side effects, patientverbalized understanding. All questions were answered to the best of my ability. This discharge took greater then 30 minutes in planning, reviewing documentation, counseling the patient, and discussing with other team members." Date of Service: Jul 23, 2025 Billing Provider: DUKE MARRERO MD Common Visit Codes: [id number] DISCH DAY >30min DUKE MARRERO MD Jul 23, 2025 13:53
== END 2025-07-23 17:32 | disposition hospice, home (50) | DRG 870 ==
LOC: ER 09:13 → EDBD 09:13 → OVERFLOW 19:14 → ICU WEST 22:22 → EAST 07-23 12:54
PROVIDERS: ADMIT Internal Medicine Pulmonary Disease; ATTEND Internal Medicine Pulmonary Disease
PROC: 5A1955Z Respiratory Ventilation, Greater than 96 Consecutive Hours (ICD-10-PCS; principal; 2025-07-10)
PROC: 0BH17EZ Insertion of Endotracheal Airway into Trachea, Via Natural or Artificial Opening (ICD-10-PCS; 2025-07-10)
PROC: 5A09357 Assistance with Respiratory Ventilation, Less than 24 Consecutive Hours, Continuous Positive Airway Pressure (ICD-10-PCS; 2025-07-10)
PROC: 02HV33Z Insertion of Infusion Device into Superior Vena Cava, Percutaneous Approach (ICD-10-PCS; 2025-07-12)
PROC: B548ZZA Ultrasonography of Superior Vena Cava, Guidance (ICD-10-PCS; 2025-07-12)
PROC: 0DH67UZ Insertion of Feeding Device into Stomach, Via Natural or Artificial Opening (ICD-10-PCS; 2025-07-12)
PROC: 0B9M8ZZ Drainage of Bilateral Lungs, Via Natural or Artificial Opening Endoscopic (ICD-10-PCS; 2025-07-14)
PROC: 5A0935A Assistance with Respiratory Ventilation, Less than 24 Consecutive Hours, High Flow/Velocity Cannula (ICD-10-PCS; 2025-07-21)
PROC: 5A0935A Assistance with Respiratory Ventilation, Less than 24 Consecutive Hours, High Flow/Velocity Cannula (ICD-10-PCS; 2025-07-22)
DX: A41.50 Gram-negative sepsis, unspecified (principal); G93.41 Metabolic encephalopathy; J15.69 Pneumonia due to other Gram-negative bacteria; R65.21 Severe sepsis with septic shock; J96.22 Acute and chronic respiratory failure with hypercapnia; J96.21 Acute and chronic respiratory failure with hypoxia; J15.9 Unspecified bacterial pneumonia; J44.1 Chronic obstructive pulmonary disease with (acute) exacerbation; G93.1 Anoxic brain damage, not elsewhere classified; D68.69 Other thrombophilia; E44.0 Moderate protein-calorie malnutrition; E87.0 Hyperosmolality and hypernatremia; E87.4 Mixed disorder of acid-base balance; I82.621 Acute embolism and thrombosis of deep veins of right upper extremity; J44.0 Chronic obstructive pulmonary disease with (acute) lower respiratory infection; I47.20 Ventricular tachycardia, unspecified; I50.30 Unspecified diastolic (congestive) heart failure; Z66 Do not resuscitate; Z20.822 Contact with and (suspected) exposure to COVID-19; F02.80 Dementia in other diseases classified elsewhere, unspecified severity, without behavioral disturbance, psychotic disturbance, mood disturbance, and anxiety; I11.0 Hypertensive heart disease with heart failure; J43.9 Emphysema, unspecified; N40.0 Benign prostatic hyperplasia without lower urinary tract symptoms; G20.A1 Parkinson's disease without dyskinesia, without mention of fluctuations; J98.4 Other disorders of lung; F41.9 Anxiety disorder, unspecified; Z80.1 Family history of malignant neoplasm of trachea, bronchus and lung; Z80.8 Family history of malignant neoplasm of other organs or systems; Z82.49 Family history of ischemic heart disease and other diseases of the circulatory system; Z87.891 Personal history of nicotine dependence; Z68.21 Body mass index [BMI] 21.0-21.9, adult; Z79.899 Other long term (current) drug therapy; Z99.81 Dependence on supplemental oxygen
CPT/HCPCS: 31720; 36415; 36569; 36600; 71045; 71275; 76937; 80048; 80053; 80202; 80307; 81001; 82565; 82607; 82805; 82962; 83036; 83605; 83735; 83880; 84100; 84132; 84439; 84443; 84480; 84484; 85007; 85025; 85027; 85379; 85610; 85652; 85730; 86141; 87040; 87070; 87077; 87081; 87186; 87205; 87426; 87804; 92610; 93005; 93306; 93970; 93971; 94002; 94003; 94640; 94644; 94668; 96374; 96375; 97163; 99291; 99292; G0378; J1956; J2185; J2248; J2470; J2704; J3465; J3480; J7060